=== PATIENT | female | born 1970 | race African-American/Black ===

== ENCOUNTER 2021-10-01 17:18 | Outpatient (CLI) | payer MEDICARE, SELFPAY ==
--- NOTE | ~2021-10-01 | MM_ITS ---
EXAMINATION: MM screening jeferson BI w huyen HISTORY: Screening mammogram TECHNIQUE: Craniocaudal and mediolateral oblique 3-D tomosynthesis images were obtained and synthetic 2-D images were generated. CAD analysis was submitted and interpreted. COMPARISON: 09/23/2011 BREAST PARENCHYMAL COMPOSITION: There are scattered areas of fibroglandular density. FINDINGS: There is no evidence of suspicious mass, calcification, or architectural distortion to sugg est malignancy in either breast. There has been no suspicious interval change. IMPRESSION: 1. No mammographic evidence of malignancy. 2. Recommend routine screening mammography in one year. BI-RADS Category 1: Negative Reviewed, dictated and finalized at location A. T [employer] CHIEF CLERK
== END 2021-10-01 17:19 | disposition home or self-care (01) ==
PROVIDERS: Visit Provider Obstetrics & Gynecology
DX: Z12.31 Encounter for screening mammogram for malignant neoplasm of breast (principal)
CPT/HCPCS: 77063; 77067

== ENCOUNTER 2024-08-19 17:03 | Emergency (ER) | payer MEDICARE, SELFPAY ==
--- NOTE | ~2024-08-19 | XR_ITS ---
EXAM: XR foot LT min 3V DATE: 08/19/2024 18:39 HISTORY: Left lateral foot pain . COMPARISON: None available. FINDINGS: Normal mineralization. No fracture or dislocation. No lytic or blastic lesion. Mild degene rative change at the first MTP joint. Achilles and plantar enthesopathy. No erosion or periosteal rey nge. Soft tissues within normal limits. IMPRESSION: No acute osseous finding in the left foot. Reviewed, dictated and finalized at location K. BARN LABORER
[2024-08-19 17:12] VITALS: BP 137/75; PULSE 63; RESP 16; TEMP 36.9; O2SAT 100
[2024-08-19] MEDS: KETOROLAC 30 MG/ML VIAL (*BKC) IM (18:20)
[2024-08-19] MEDS: GABAPENTIN 300 MG CAPSULE PO (18:27)
--- NOTE | 2024-08-19 18:54 | ED_ITS ---
HPI - Extremity Problem General Chief complaint: Extremity Problem,Nontraumatic Stated complaint: L leg pain Time Seen by Provider: 08/19/24 17:37 Source: patient Mode of arrival: ambulatory Limitations: no limitations History of Present Illness HPI Narrative: This is a 54-year-old female, with history of rheumatoid arthritis and neuropathy, who presents to the emergency department complaining of left foot and toe pain for the past several days. She describes the pain as burning and cold sensation rated 5/10. She states she had previously taken gabapentin for similar pain in the hands. She has no other complaints at this time. Related Data Home Medications ?Medication ?Instructions ?Recorded ?Confirmed ?Last Taken ?Type multivitamin 1 tablet PO DAILY 12/02/22 12/05/22 Unknown History thiamine HCl (vitamin B1) 50 mg 50 mg PO DAILY 12/02/22 12/05/22 Unknown History tablet Allergies Allergy/AdvReac Type Severity Reaction Status Date / Time tramadol Allergy Mild Itching Verified 12/02/22 09:05 Review of Systems Review of Systems: All systems reviewed & are unremarkable except as noted in HPI and below PMFSH Past Medical History Medical History Neuropathy Vaginal delivery x 3 Surgical History Surgical History History of throat surgery History of tubal ligation History of cholecystectomy History of repair of rotator cuff History of endometrial ablation Social History Social History Smoking status: Former smoker Tobacco type: cigarettes Second hand tobacco smoke exposure: No Smoking end date: 08/01/11 Alcohol intake: current Drinks per week: 5 Substance use: current Substance use type: marijuana Living arrangements: with family Spiritual care concerns: No Exam Narrative: GENERAL: Well-developed, well-nourished, and in no acute distress. HEAD: Normocephalic, atraumatic. EYES: PERRLA and EOMI. CHEST: Clear to auscultation. No respiratory distress. No wheezes rales or rhonchi HEART: Regular rate and rhythm. No murmur heard. Normal peripheral pulses. EXTREMITIES: DP and PT pulses of the feet intact. The skin is pink warm and dry. Pulse ox applied to each of the toes demonstrates 97-98% saturation room air. Normal range of motion. No edema. SKIN: Warm, dry, no rash. NEURO: Alert and oriented x3. No focal deficit. Moving all 4 limbs spontaneously PSYCH: Normal mood and affect. Course Course Emergency Course: 18:50 X-ray not concerning for fracture or dislocation exam not concerning for vascular insufficiency. I suspect neuropathy is the cause of the patient's pa in. Will discharge with gabapentin, topical lidocaine and recommendation for primary care follow-up. I discussed the findings and recommendations with the patient. Discussed return and emergency precautions including signs/symptoms of septic arthritis and neurovascular compromise. The patient voiced understanding and agreement with the plan. All questions answered to her satisfaction. Vital Signs Vital signs: Vital Signs Temperature 98.5 F 08/19/24 17:12 Pulse Rate 63 08/19/24 17:12 Respiratory Rate 16 08/19/24 17:12 Blood Pressure 137/75 08/19/24 17:12 Pulse Oximetry 100 08/19/24 17:12 Oxygen Delivery Room Air 08/19/24 17:12 Temperature 98.5 F 08/19/24 17:12 Pulse Rate 63 08/19/24 17:12 Respiratory Rate 16 08/19/24 17:12 Blood Pressure 137/75 08/19/24 17:12 Pulse Oximetry 100 08/19/24 17:12 Oxygen Delivery Room Air 08/19/24 17:12 MDM - Extremity (Nontraumatic) MDM Narrative Medical decision making narrative: Plan: Imaging, pain control, reassess Differential Diagnosis Differential diagnosis: Likely other (Peripheral neuropathy, fracture, other) Discharge Plan Discharge Clinical Impression: Peripheral neuropathy, Acute pain of left foot Patient Disposition: Home, Self-Care Condition: Stable Instructions: Antibiotic Form, Peripheral Neuropathy (ED) Additional Instructions: You were seen in the emergency department. An x-ray of the foot was not concerning for fracture or dislocation. Your exam is not concerning for loss of blood flow to the foot. I suspect neuropathy is the cause of your pain. I recommend gabapentin, a trial of topical capsaicin and primary care follow-up. If you develop fevers with severe foot pain and swelling, of the foot appears blue/cold, or if you have other emergent concerns for life, limb, or eyesight, r eturn to the emergency department. Patient Language: Tajik Prescriptions: New gabapentin 300 mg capsule 300 mg PO TID Qty: 90 0RF lidocaine 5 % ointment 1 applic topical BID PRN (Reason: pain) Qty: 50 0RF No Action multivitamin Tablet 1 tablet PO DAILY thiamine HCl (vitamin B1) 50 mg tablet 50 mg PO DAILY Follow-up/Referrals: PHYSICIAN,STUDENT ASSISTANT [Primary Care Provider] - 2 Weeks Time of Disposition: 18:57
[2024-08-19 19:08] VITALS: BP 124/80; PULSE 78; RESP 16; TEMP 36.6; O2SAT 100
--- OUTSIDE RECORDS SUMMARY | 2024-08-23 10:49 | XMS_ITS | Data Portability ---
[facility] Address [address] [place] [address] Care Team Providers Care Sheet Rock Nailer Name Role Phone LYNDSAY DORANTES Special Events Planner [phone] [facility] Scrub Nurse [facility] eumatologist Assessment No assessment recorded. Plan of Treatment Reminders Order Date Submit Date Provider Last Modified By Organization Details Last Modified Time Details Appointments ANY 2024 03:40P M Jesse Mead MD Not available Not available Not available Lab unlist ed lab - TSH rfx on abnorm al to free T4 2023 024 mohsen López [facility] (Lab), [address] [place], [address], 08/02/2024 13:28:51 unlist ed lab - hemogl obin A1C 2023 024 mohsen López [facility] (Lab), [address] [place], [address], 08/02/2024 13:29:12 Referral hand surgeo n referr al 2023 024 jose Le MD, [address] [facility] , [place] [address], [place], [address], 09/20/2023 12:41:38 gastro entero logist referr al 2023 024 HARTSHORNDEANDRE Carvalho MD, [address], [place], [address], 04/27/2024 10:34:44 ophtha lmolog ist referr al 2023 024 [facility], [address] [place], [address], 08/21/2024 08:34:12 Procedures None record ed. Surgeries None record ed. Imaging MAMMO, screen ing, tomosy nthesi s, bilate ral 2023 024 [facility] Scheduling, [address] [facility], [place], [address], 03/22/2024 16:19:05 Medication Orders Victoz a 3-Tan 0.6 mg/0.1 mL (18 mg/3 mL) subcut aneous pen inject or 2023 024 [facility], [address] [place] [address] [address] [facility], [place], [address], 02/15/2024 16:24:56 Victoz a 3-Tan 0.6 mg/0.1 mL (18 mg/3 mL) subcut aneous pen inject or 2023 024 [facility], [address] [place] [address] [address], [place], [address], 02/15/2024 16:24:56 Victoz a 3-Tan 0.6 mg/0.1 mL (18 mg/3 mL) subcut aneous pen inject or 2023 024 [facility], [address] [place] [address] [address], [place], [address], 02/15/2024 16:24:56 Mounja ro 2.5 mg/0.5 mL subcut aneous pen inject or 2023 024 [facility] #[id number], [address], [place], [id number], 07/11/2024 20:38:31 Mounja ro 5 mg/0.5 mL subcut aneous pen inject or 2023 024 [id number], [address], [place], [id number], 07/11/2024 20:38:25 Patient TargetsNo targets recorded. Patient Instructions Encounter Date Encounter Id Patient Instructions Last Modified By Organization Details Last Modified Time 08/12/2023 [id number] I was present an d available to see this patient in [facility] clinic. I agree with the written findings. Pat Shine MD [email or web address] Not available 08/12/2023 16:44:16 11/29/2023 [id number] agree w plan and treatment and was present Dr. Daniel banda Not available 11/29/2023 14:37:16 07/11/2024 [id number] I was present an d available in the Family Medicine clinic to discuss this patient's care during the appointment. I agree with the resident's assessment and plan as documented. 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, [place], [address], 07/11/2024 13:07:41 07/11/20 24 07/11/2024 HEMOG LOBIN A1C estimated average glucose, yamileth 123 mg/dL Not Available [facility] (Lab) [address], [place], [address], 07/11/2024 13:07:41 03/22/20 24 MAMMO , scree myke, tomos ynthe sis, bilat eral [facility] [address] [facility] [place] [address] This is a summar y report . The comple te report is availa ble in the patien t's medica l record . If you cannot access the medica l record , please contac t the alan loza for a detail ed fax or copy. Examin ation: Screen ing bilate ral mammog danielle Exam Date: 024 1:59 PM Access ion: [id number] Clinic al histor y: Routin e screen ing. Compar denise: 2021, 2011 Techni que: Digita l screen ing mammog luci of both breast s was perfor med. Breast tomosy nthesi s acquis itions were obtain ed and review ed. This study was read with the assist ance of a [employer] er-aid ed detect ion system . Tissue densit y: There are scatte red areas of fibrog landul ar densit y. Findin gs: No suspic ious masses , malign ant appear ing calcif icatio ns, skin thicke myke or other abnorm alitie s are presen t. No signif icant change from the prior exam. IMPRES CAROLYN: No suspic ious mammog raphic findin gs. Recomm endati on: 1. Routin e Screen ing, Bilate ral Assess ment: ACR BI-RAD S 1 - NEGATI VE Ordere d By: MARTA Nelson Electr onical ly Signed By: Nigel Anderson MD on 3:17 PM Interp reted By: Nigel Anderson MD, 3:15 PM [email or web address] [facility] [address] [facility], [place], [address], 04/29/2024 22:52:42 03/22/20 24 03/22/2024 MAMMO , scree myke, tomos ynthe sis, bilat eral No observ ation record ed. [email or web address] [facility] Scheduling [address] [facility], [place], [address], 05/01/2024 17:10:52 05/28/20 24 XR, chest [facility] [place] [address] [facility] [place] [address] [facility] [address] [place] [id number] TICO LOGAN S: XR CHEST PORTAB LE DATE: 2023 12:00 PM HISTOR Y: cp 54-yea r-old female . Chest pain that began late last night. Patien t report s pain radiat es from lower back to mid chest. COMPAR DENISE: Chest portab le 019. DISCUS CAROLYN: Portab le AP uprigh t view of the chest. Heart size is within normal limits . No acute pulmon dominik vascul ar conges tion. No acute pulmon dominik infilt rate, pulmon dominik consol idatio n, pleura l effusi on, or pneumo thorax . No acute skelet al abnorm ality. IMPRES CAROLYN: No acute pulmon dominik infilt rate or consol idatio n. No acute pulmon dominik vascul ar conges tion. Ordere d By: MARK WHITAKER N Electr onical ly Signed By: Romi Wiseman on 2023 12:35 PM Interp reted By: Romi Wiseman , 2023 12:33 PM [email or web address], [address], 05/29/2024 10:45:46 05/28/20 24 ECG 12-le ad [facility] [place] [address] [facility] [place] [address], [place] Test Date: 2023-08 Pat Name: LYUDMILA Degroot ment: [address] t ID: [id number] Room: EXAM01 Gender : Female Techni ban: : [birth year] Reques mike By: RAYNA ALEXANDER Order Number : [id number] Leslie john MD: Tez Ayala i Measur ements Interv als Upson Rate: 58 P: 49 OK: 151 QRS: -5 QRSD: 81 T: 29 QT: 407 QTc: 401 Interp retive Statem ents SINUS BRADYC ARDIA Compar ed to ECG 2018 11:37: 04 No signif icant change s Electr onical ly signed by Tez Ayala i at 2023 21:20: 18 [address]T [email or web address], [place], [address], 05/29/2024 10:45:46 05/28/20 24 ECG 12-le ad [facility] [place] [address] [facility] [place] [address], [place] Test Date: 2023-08 Pat Name: LYUDMILA Degroot ment: [address] ID: [id number] Room: EXAM01 Gender : Female Techni ban: : [birth year] Reques mike By: RAYNA ALEXANDER Order Number : [id number] Leslie john MD: Tez Ayala i Measur ements Interv als Upson Rate: 58 P: 49 OK: 151 QRS: -5 QRSD: 81 T: 29 QT: 407 QTc: 401 Interp retive Statem ents SINUS BRADYC ARDIA Compar ed to ECG 2018 11:37: 04 No signif icant change s Electr onical ly signed by Tez Ayala i at 2023 21:20: 18 CDT [email or web address], [place], [address], 05/29/2024 10:45:46 05/28/20 24 ECG 12-le ad [facility] [place] [address] [facility] [place] [address], [facility] [place] Test Date: 2023-08 Pat Name: LYUDMILA Degroot ment: 42 Patien t ID: [id number] Room: [facility] Gender : Female Techni ban: [id number] : [birth year] Reques mike By: RAYNA ALEXANDER Order Number : [id number] Leslie john MD: Tez Ayala i Measur ements Interv als Upson Rate: 55 P: 32 OK: 142 QRS: -15 QRSD: 83 T: 16 QT: 425 QTc: 408 Interp retive Statem ents SINUS BRADYC ARDIA Compar ed to ECG 2023 11:52: 57 No signif icant change s Electr onical ly signed by Tez Ayala i at 2023 22:04: 51 CDT [email or web address] [facility] [address] [facility], [place], [address], 05/29/2024 10:45:47 05/28/20 24 ECG 12-le ad [facility] [place] [address] [facility] [place] [address], [place] Test Date: 2023-08 Pat Name: LYUDMILA Degroot ment: Rainer Medley t ID: [id number] Room: [facility] Gender : Female Techni ban: [id number] : 1970-0 6-30 Reques mike By: RAYNA ALEXANDER Order Number : [id number] Leslie john MD: Tez Ayala i Measur ements Interv als Upson Rate: 55 P: 32 OK: 142 QRS: -15 QRSD: 83 T: 16 QT: 425 QTc: 408 Interp retive Statem ents SINUS BRADYC ARDIA Compar ed to ECG 2023 11:52: 57 No signif icant change s Electr onical ly signed by Tez Ayala i at 2023 22:04: 51 CDT [email or web address] [facility] [address] [facility], [place], [address], 05/29/2024 10:45:47 Result Notes None recorded. Problems Name Problem SNOMED Code Status Onset Date Resolution Date Notes Provider Name and Address Organization Details Recorded Time Rheumatoid arthritis 94819467 Active 2017 Not Available [facility] 3 17:58:42 Sleep apnea 95015486 Active 2017 Not Available [facility] 3 17:58:42 Obesity 516428279 Active 2017 Not Available [facility] 3 17:58:42 Degeneration of intervertebra l disc 72278408 Active 2017 Not Available [facility] 3 17:58:42 Neuropathy 205446977 Active 2017 Not Available [facility] 3 17:58:42 Hypothyroidis m 78390154 Active 2017 Not Available [facility] 3 17:58:43 Prediabetes 771862790 Active 2017 Not Available [facility] 17:58:42 Notes:Some problems listed i n Documents: #[id number], #[id number] could not be added to this patient's chart. Please review these documents and add these problems to the patient's chart manually as needed. Problem Notes None recorded. Procedures Surgical History Date Name Laterality Status Provider Name and Address Organization Details Recorded Time 07/14/20 Cryosurgery Warts/Skin Tags completed Marta Calles MD Attn: Accounting, [address] [place], [address], [facility] 07/14/2023 15:48:56 Tubal Ligation completed Erica Egan [place] [facility] 02/15/2018 10:39:23 Cholecystectomy completed Erica Egan MA [facility] 02/15/2018 10:39:35 Imaging Results Imaging Date Name Status LastModified by Organiz ation Details LastModified Time 03/22/2024 MAMMO, screening, tomosynthesis, bilateral completed [address], [address], 04/29/2024 22:52:42 03/22/2024 MAMMO, screening, tomosynthesis, bilateral completed [address] [place], [address], 05/01/2024 17:10:52 05/28/2024 XR, chest completed [address], [address], 05/29/2024 10:45:46 05/28/2024 ECG 12-lead completed [address], [address], 05/29/2024 10:45:46 05/28/2024 ECG 12-lead completed [address], [place], [address], 05/29/2024 10:45:46 05/28/2024 ECG 12-lead completed [address], [place], [address], 05/29/2024 10:45:47 05/28/2024 ECG 12-lead completed [address], [place], [address], 05/29/2024 10:45:47 Procedure Notes None recorded. Medical Equipment None Reported. Allergies Allergen ID Allergen Name Allergen Category Reaction Reaction Severity Criticality Documentation Date Start Date Code Code System Note Provider Name and Address Organization Details Recorded Time [id number] 2824e tramadol medicatio n Not available Not available Not available 05/17/20222017 30092 RxNorm Other react ions and sever ities : 'GI Upset '. Not Available Not Available Not Available Medications Name Sig Start Date Stop Date Status Note LastModified by Organization Details LastModified Time sure comfort pen needles 31gx5/16 (8mm) 31g x 8 mm misc active Not Available Not Available Not Available Prescript ion - Prior Authoriza tion Request active Nurtec Not Available Not Available Not Available metformin 500 mg tablet Take 1 tablet every day by oral route. 05/17 completed Not Available Not Available Not Available prednison e 10 mg tablet TAKE 1 TABLET BY MOUTH EVERY DAY FOR 10 DAYS THEN ONE TABLET BY MOUTH DAILY NEEDED 08/12 completed Not Available Not Available Not Available gabapenti n 600 mg tablet Take 1 tablet 3 times a day by oral route for 30 days. 08/12 completed Not Available Not Available Not Available doxycycli ne hyclate 100 mg capsule TAKE 1 CAPSULE BY MOUTH TWICE DAILY active Not Available Not Available No t Available nabumeton e 750 mg tablet 09/08 completed Not Available Not Available Not Available trazodone 50 mg tablet TAKE 1 TABLET BY MOUTH EVERY DAY DIRECTED active Not Available Not Available No t Available azithromy claude 250 mg tablet 02/15 completed Not Available Not Available Not Available tizanidin e 4 mg tablet TAKE 1 TABLET BY MOUTH EVERY 8 HOURS NEEDED FOR MUSCLE SPASMS 08/12 completed Not Available Not Available Not Available sumatript an 100 mg tablet Take 1 tablet every day by oral route as needed for 30 days. 08/12 completed Not Available Not Available Not Available hydrocodo ne 5 mg-acetam inophen 325 mg tablet 05/17 completed Not Available Not Available Not Available meloxicam 15 mg tablet Take 1 tablet every day by oral route for 30 days. 09/08 completed Not Available Not Available Not Available sumatript an 25 mg tablet 2023 active Not Available Not Available Not Avai lable methylpre dnisolone 4 mg tablet 09/08 completed Not Available Not Available Not Available topiramat e 25 mg tablet TAKE 1 TABLET BY MOUTH ONCE DAILY AT DINNER 05/17 completed Not Available Not Available Not Available phentermi ne 37.5 mg tablet TAKE 1 TABLET BY MOUTH ONCE DAILY 05/17 completed Not Available Not Available Not Available peg-elect rolyte solution 420 gram oral solution TAKE DIRECTED BY OFFICE active Not Available Not Available No t Available leflunomi de 20 mg tablet 05/17 completed Not Available Not Available Not Available meloxicam 7.5 mg tablet 08/12 completed Not Available Not Available Not Available levothyro xine 88 mcg tablet Take 1 tablet every day by oral route for 30 days. 05/17 completed Not Available Not Available Not Available methotrex ate sodium 2.5 mg tablet 05/29 completed Not Available Not Available Not Available cephalexi n 500 mg capsule 05/17 completed Not Available Not Available Not Available triamcino lone acetonide 0.1 % topical ointment APPLY THIN LAYER TOPICALL Y TO THE AFFECTED AREA TWICE DAILY FOR 7 DAYS active Not Available Not Available No t Available promethaz ine 25 mg tablet 03/02 completed Not Available Not Available Not Available ibuprofen 600 mg tablet Take 1 tablet 3 times a day by oral route as needed for 30 days. active Not Available Not Available No t Available methylpre dnisolone 4 mg tablets in a dose pack FOLLOW PACKAGE DIRECTIO NS 08/12 completed Not Available Not Available Not Available ondansetr on 4 mg disintegr ating tablet 05/17 completed Not Available Not Available Not Available fluticaso ne propionat e 50 mcg/actua tion nasal spray,katheryn pension SHAKE LIQUID AND ADMINIST ER 1 SPRAY INTO EACH NOSTRIL USE DIRECTED active Not Available Not Available No t Available naproxen 500 mg tablet 02/15 completed Not Available Not Available Not Available nabumeton e 500 mg tablet 02/15 completed Not Available Not Available Not Available amoxicill in 500 mg-potass ium clavulana te 125 mg tablet TAKE 1 TABLET BY MOUTH THREE TIMES DAILY UNTIL 24 HOURS AFTER SYMPTOMS RESOLVE active Not Available Not Available No t Available Tylenol Extra Strength 500 mg tablet Take 2 tablets every 6 hours by oral route as needed for 10 days. 2022 active Not Available Not Available Not Avai lable escitalop danielle 10 mg tablet TAKE 1 TABLET BY MOUTH EVERY DAY DIRECTED 05/17 completed Not Available Not Available Not Available topiramat e 50 mg tablet Take 1 tablet twice a day by oral route. 05/29 completed Not Available Not Available Not Available Sure Comfort Pen Needle 31 gauge x 5/16 USE DAILY TO inject victoza active Not Available Not Available No t Available diclofena c 1 % topical gel 05/17 completed Not Available Not Available Not Available Orencia 125 mg/mL subcutane ous syringe 05/17 completed Not Available Not Available Not Available Victoza 3-Tan 0.6 mg/0.1 mL (18 mg/3 mL) subcutane ous pen injector Inject 1.8 mg every day by subcutan eous route as directed for 28 days. 02/14 completed pharm called requesti ng rx. Not Available Not Available Not Available Moisture Barrier Ointment 0.44 %-20.6 % APPLY 1 GRAM TOPICALL Y TO THE AFFECTED AREA EVERY DAY FOR 10 DAYS DIRECTED 05/17 completed Not Available Not Available Not Available Nurtec ODT 75 mg disintegr ating tablet take 1 tablet every day by oral route as needed for 30 days 08/24 completed PA denied Not Available Not Available Not Available Mounjaro 5 mg/0.5 mL subcutane ous pen injector Inject 5 mg every week by subcutan eous route. 2023 active Not Available Not Available Not Avai helio Mounjaro 2.5 mg/0.5 mL subcutane ous pen injector Inject 2.5 mg every week by subcutan eous route for 28 days. 07/11 completed Not Available Not Available Not Available Vitals Date Recorded Body height Provider Name an d Address Organization Details Last Updated DateTime 08/12/2023 168.91 cm Lidia Mcdowell [facility] 08/12/2023 15:13:07 Date Recorded Body mass index (BMI) Body weight Provider Name and Address Organization Details Last Updated DateTime 08/12/2023 36.5 kg/m2 381360.1 g Lidia Mcdowell MA [facility] 15:13:16 Date Recorded Oxygen saturation Oxygen saturation in Arterial blood by Pulse oximetry Provider Name and Address Organization Details Last Updated DateTime 08/12/2023 97 % 97 % Lidia Mcdowell MA [facility] 08/12/2023 15:14:17 Date Recorded Body temperature Provider Name a nd Address Organization Details Last Updated DateTime 08/12/2023 98 [degF] Lidia Mcdowell MA [facility] 08/12/2023 15:14:19 Date Recorded Heart rate Provider Name an d Address Organization Details Last Updated DateTime 08/12/2023 61 /min Lidia Mcdowell MA [facility] 08/12/2023 15:14:55 Date Recorded Body height Provider Name an d Address Organization Details Last Updated DateTime 11/29/2023 168.91 cm Vicki Hopper MA [facility] 024 14:14:35 Date Recorded Body mass index (BMI) Body weight Provider Name and Address Organization Details Last Updated DateTime 11/29/2023 36.3 kg/m2 866281.81 g Vicki Hopper MA [facility] 11/29/2023 14:14:57 Date Recorded Body temperature Provider Name a nd Address Organization Details Last Updated DateTime 11/29/2023 97.6 [degF] Vicki Hopper [facility] 2023 14:15:08 Date Recorded Heart rate Provider Name an d Address Organization Details Last Updated DateTime 11/29/2023 82 /min [facility] 14:16:13 Date Recorded Oxygen saturation Oxygen saturation in Arterial blood by Pulse oximetry Provider Name and Address Organization Details Last Updated DateTime 11/29/2023 97 % 97 % Johncarolyn EUGENE Hopper [facility] 11/29/2023 14:17:18 Date Recorded Body height Provider Name an d Address Organization Details Last Updated DateTime 12/30/2023 168.91 cm Vicki Hopper [facility] 10:21:38 Date Recorded Body height Provider Name an d Address Organization Details Last Updated DateTime 03/02/2024 168.91 cm Lidia Mcdowell [facility] 03/02/2024 15:24:36 Date Recorded Body mass index (BMI) Body weight Provider Name and Address Organization Details Last Updated DateTime 03/02/2024 35 kg/m2 98225.77 g Lidia Mcdowell [facility] 09/2023 15:24:43 Date Recorded Body temperature Provider Name a nd Address Organization Details Last Updated DateTime 03/02/2024 97.9 [degF] Lidia Mcdowell MA [facility] 15:25:33 Date Recorded Oxygen saturation Oxygen saturation in Arterial blood by Pulse oximetry Provider Name and Address Organization Details Last Updated DateTime 03/02/2024 95 % 95 % Lidia Mcdowell MA [facility] 03/02/2024 15:25:37 Date Recorded Heart rate Provider Name an d Address Organization Details Last Updated DateTime 03/02/2024 134 /min Lidia Mcdowell [facility] 03/02/2024 15:26:05 Date Recorded Body height Provider Name an d Address Organization Details Last Updated DateTime 07/11/2024 168.91 cm Kristen Cota [facility] 10:55:20 Date Recorded Body mass index (BMI) Body weight Provider Name and Address Organization Details Last Updated DateTime 07/11/2024 34.5 kg/m2 09006.29 g Kristen Cota MA [facility] 07/11/2024 10:56:29 Date Recorded Heart rate Provider Name an d Address Organization Details Last Updated DateTime 07/11/2024 67 /min Kristen Cota MA [facility] 024 10:56:59 Date Recorded Oxygen saturation Oxygen saturation in Arterial blood by Pulse oximetry Provider Name and Address Organization Details Last Updated DateTime 07/11/2024 99 % 99 % Kristen Cota MA [facility] 07/11/2024 10:57:25 Date Recorded Body temperature Provider Name a nd Address Organization Details Last Updated DateTime 07/11/2024 98.3 [degF] Kristen oCta MA [facility] 2023 10:57:36 Date Recorded Systolic blood pressure Diastolic blood pressure Provider Name and Address Organization Details Last Updated DateTime 08/12/2023 120 mm[Hg] 82 mm[Hg] Lidia Mcdowell MA [facility] 08/12/2023 15:14:53 Date Recorded Systolic blood pressure Diastolic blood pressure Provider Name and Address Organization Details Last Updated DateTime 11/29/2023 102 mm[Hg] 72 mm[Hg] Vicki Hopper MA [facility] 11/29/2023 14:16:51 Date Recorded Systolic blood pressure Diastolic blood pressure Provider Name and Address Organization Details Last Updated DateTime 03/02/2024 110 mm[Hg] 77 mm[Hg] Lidia Mcdowell MA [facility] 03/02/2024 15:25:58 Date Recorded Systolic blood pressure Diastolic blood pressure Provider Name and Address Organization Details Last Updated DateTime 07/11/2024 114 mm[Hg] 79 mm[Hg] Kristen Cota MA [facility] 07/11/2024 10:56:42 Social History Question Answer Notes LastModified by Organizat ion Details LastModified Time Tobacco Smoking Status Former Smoker Quit years ago Kristen Cota MA null, [facility] 07/11/2024 10:55:19 What Is Your Level Of Alcohol Consumption? Occasional [email or web address] Information not available 02/15/2018 What Is Your Level Of Caffeine Consumption? Heavy [email or web address] Information not available 02/15/2018 How Much Tobacco Do You Chew? None [email or web address] Information not available 02/15/2018 What Type Of Diet Are You Following? REGULAR [email or web address] Information not available 02/15/2018 Which Illicit Or Recreational Drugs Have You Used? None [email or web address] Information not available 02/15/2018 Education 12 Information not available 02/15/2018 Hard Of Hearing Or Deaf In One Or Both Ears? No [email or web address] Information not available 02/15/2018 Legally Blind In One Or Both Eyes? No [email or web address] Information not available 02/15/2018 Live Alone Or With Others? With Others [email or web address] Information not available 02/15/2018 What Was The Date Of Your Most Recent Tobacco Screening? 07/11/2024 [email or web address] Information not available 07/11/2024 How Many Children Do You Have? 3 [email or web address] Information not available 02/15/2018 Do You Use Protection During Sex? Always [email or web address] Information not available 02/15/2018 Are You Sexually Active? Yes [email or web address] Information not available 02/15/2018 Are You Passively Exposed To Smoke? Yes [email or web address] Information not available 02/15/2018 How Much Tobacco Do You Smoke? No [email or web address] Information not available 02/15/2018 General Stress Level High [email or web address] Information not available 02/15/2018 Do You Use Any Illicit Or Recreational Drugs? No [email or web address] Information not available 05/17/2022 How Many Years Have You Smoked Tobacco? 0 [email or web address] Information not available 02/15/2018 Sex: Unknown Functional Status Question Answer Note LastModified by Organization D etails LastModified Time Are you able to care for yourself? Yes [email or web address] Information n ot available 02/15/2018 Mental Status None recorded. Family History Nothing Reported. Medical History No medical history recorded. Gynecological HistoryNo gynecological history recorded. Obstetrics History GPAL:G 4 P 4 0 1 3 Type Value Multiple Births 0 Full Term 4 Induced 0 Spontaneous 0 Premature 0 Living 3 Ectopics 1 Total 4 Immunizations Vaccine Type Date Status Note Provider Nam e and Address Organization Details Recorded Time COVID-19 vaccine, vector-nr, rS-Ad26, PF, 0.5 mL 1 completed Not Available [facility] 08/27/2023 00:52:05 Influenza, split virus, trivalent, preservative 3 completed Not Available [facility] 08/27/2023 00:52:06 COVID-19 vaccine, vector-nr, rS-Ad26, PF, 0.5 mL 1 completed Not Available [facility] 08/27/2023 00:52:06 Tdap 6 completed Not Available [facility] 08/27/2023 00:52:06 Past Encounters Encounter ID Performer Location Encounter Start Date Encounter Closed Date Diagnosis/Indication Diagnosis SNOMED-CT Code Diagnosis ICD10 Code Diagnosis Note [id number] Ishaan Oden MD [facility] ([facility]) [address] [place] [phone] 02/15/2018 10:10:09 02/16/2018 09:20:59 Obesity 087781537 E66.9 Sleep apnea 22918518 G47 .30 Rheumatoid arthritis 698 28492 M06.9 Hypothyroidism 80661990 E03.9 Degenerati on of intervertebral disc 04782048 M51.9 [id number] Ishaan Oden MD [facility] ([facility]) [address] [place] [phone] 05/29/2018 12:10:45 05/31/2018 16:16:46 Prediabetes 501322150 R73.03 Neuropathy 709909390 G62 .9 [id number] Ishaan Oden MD [facility] ([facility]) [address] [place] [phone] 09/08/2018 14:05:45 09/11/2018 11:19:50 Rheumatoid arthritis 03115789 M06.9 Type 2 selina betes mellitus 13066192 E11.9 Hypothyroidism 14620916 E03.9 Sleep apnea 33590690 G47 .30 [id number] SHAY HERNANDEZ MD [place] [address] [address] 01/14/2022 14:53:25 01/15/2022 09:13:47 Prediabetes 727772103 R73.03 Last a1c was 6.1 in 2019Not on any medication s right nownot seeing eye or foot doctor but is checking feet regularly- will need new labs to get baseline since everything was in 2019-bharti get a1c, CMP, lipid panel, and urine albumin.cr Hypothyroidism 29108667 E03.9 Last TSH with T4 waas 1.56 and 1.4 respective ly in 2019. She is having symptoms of fatigue, depression , bradycardi a so its possible it is hypothyroi d again since she is not taking any medication -will recheck tsh and t4 Depressive disorder 3548 9007 F32.A PHQ-13. She is having sx's (see HPI). No SI or HI. Return precaution s given. This could also be related to thyroid so will check that. This could also be acute stress disorder given the situation at home with her getting out of jail and being hospitaliz ed Family his tory of cancer of colon 128642290 Z80.0 Father had colon cancer at 42. She needs to be screened. 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 No ssigns of infection- will send moisturize r cream Rheumatoid arthritis 698 33066 M06.9 [id number] Kaylyn blas MD [place] [address] [address] 05/17/2022 09:57:42 05/25/2022 13:36:22 Prediabetes 544536180 R73.03 Chronic, stable. Last A1c 6.1. Requesting repeat A1c which was still 6.1 today.- Discussed lifestyle change including goal weight loss of 7% of initial body weight, moderate intensity exercise 150 minutes/we ek- Consider metformin for BMI >35, age <60 Neuropathy 577227456 G62 .9 Chronic, has had workup at [facility] but records are not available. Unclear source for neuropathy as she does not have diabetes. Unsure if she has had lab workup for neuropathy already but states she has had EMG/NCS.- Release of records for Dr. Gabmoa at [facility]- Restart gabapentin 600 mg tid- Referral to neurology for further workup per patient request Headache 24649431 R51.9 Suspect medication overuse headache due to high doses of OTC aspirin/ca ffeine (BC) medication daily. Neuro exam is normal.- Counseled to stop BC medication - Consider restarting topamax for ppx next visit if still having headaches off of OTC meds Obesity 161736982 E66.9 [id number] Pat Shine MD [place] [address] 3 [facility] [address] [place] [address] 08/06/2022 15:07:03 08/10/2022 12:30:20 Prediabetes 440200910 R73.03 A1c was 6.0 today. See plan for obesity for diet and exercise. Obesity 481716906 E66.9 - BMI over 30 - Work hard to reduce carbohydra hattie and total calories - May use free smart phone dakota 'Roam [employer] Wander' to help track calories and try to reduce by 15% every 4 weeks - Should work on reducing their total portion sizes to try to reduce the size of stomach - Should be exercising about 30 minutes every day with cardio work outs - Strive to avoid regular soda, juices, and alcohol - Aim to lose about 1 lb per week and 5 lbs per month - If the patient is working hard and not succeeding , consider using weight loss medication s Depression screening 171 107507 Z13.31 PHQ 2 negative Pain in ri ght hip joint 8773408490 00361 M25.551 OA vs labral pathology vs femoractab ular syndrome. No worrisome signs on infection. Positive VASILE and FADIR. Mild trochanter ic tenderness to palpation but does not reproduce her pain. Will send to PT and do NSAIDS with tylenol. WIll need to get hip xray and may need more advanced imaging., Migraine with aura 12805 06 G43.109 SNOOP red flags negative. Has preceding aura prior to migraine. Photophobi a, pulsatile. Doesn't take chronic NSAIDS. [facility]. Cannot take sumatripti an for risk of combinatio n with gabapentin (may incr. 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 depression , psychomoto r impairment ) [id number] [facility] [address] [address] 12/17/2022 10:16:21 12/23/2022 16:19:10 Pain of right elbow joint 3228672247 0131609 M25.521 Most likely lateral epidonliti s based on exam. Could be OA as well. Atraumatic so less likely fracture-w ill give countertra ction strap and send to OT-will get Xray to look for loose bodies or stress fracture Pain in ri ght hip joint 4580740626 33911 M25.551 OA vs labral pathology vs femoractab ular syndrome. No worrisome signs on infection. WIll send to ortho for injections vs replacemen t. Did have hip xray 10/2022 that showed degenerati ve changes in right hip [id number] DO Yandy SHELL [address] [address] 03/30/2023 09:07:52 03/31/2023 14:11:50 Exposure to radon 9257563069 3328143 Z77.123 Been exposed to cigarette smoke in household for 20+ years and she herself has smoked for 15 years. Asx. Does have weight loss. given high risk smoking exposure and radon levels >8 for a couple of years will send to radiology for LDCT Insomnia 373223725 G47.0 0 Chronic, 3 months. Think it related to mood. No caffiene intake. No new meds. No snoring or concerns of TEMI or cardiac concerns.- encouraged good sleep hygiene-wi ll trial trazadone 50mg nightly and RTC in 1 month to reeval [id number] MD Yandy SANTIAGO [address] [address] 07/14/2023 15:11:34 08/11/2023 10:28:55 Hand wart 802451956 B07.8 on middle finger. not infected. Patient elected to proceed with cryotherap y. Talkeda bout alternativ e treatments and return precaution s given Seasonal allergy 2061145 04 J30.2 Chronic controlled with flonase. needs refill [id number] MD Yanyd Sanchez 47 3 [facility] [address] [place] [address] 07/28/2023 12:01:41 07/29/2023 16:18:09 Acute dermatitis 89594348 L30.9 see callosity of hand problem Callosity on hand 719924 002 L84 R22.31 53 yof s/p cryotherap y on RUE middle finger for cutaneous growth/ nodule, presumed to be hand wart at the time of cryotherap y. Pt seems to be having some post procedure inflammati on. -unclear if lesion was truly a wart, pt has hx of hand calluses on her hands bilat and has some small hyperkerat otic calluses on her LUE hand / fingers in similar locations, pt reports these and these types of lesions were prev removed / ablated via a specialist physician she saw > 7 years ago, unclear what kortney of procedure it was-lesion s could be calluses vs rheumatoid nodules vs tophi entity vs wart vs other-toda y her post cryotherap y lesion dose not appear to be infected or involve any deep hand / finger structures -pt states lesion feels best when she keeps the skin hydrated w/ vaseline and covered w/ bandage-di scussed management options w/ pt-as lesion is showing some cutaneous inflammati on w/o signs of SSTI will try 7 day course of topical steroids-s ent triamcinol one 0.1% , advise to apply BID for no more than 7 days and not use the topical steroid on any other skin lesion w/o talking to physician first-pt has f/u w/ her pcp in aprox 12 days-provi ded ed and clinic return precaution s Seronegati ve rheumatoid arthritis 315596609 M06.00 pt carries the dx of seronegati ve rheumatoid arthritis, has seen multiple rheum providers int he past most recent rheum note in care everywhere was via Dung Estevez MD on , note mentions restart lelfunomid e, unclear if pt has started this med yet [id number] Pat Shine MD [facility] 47 3 [facility] [address] [place] [address] 08/12/2023 14:54:51 08/16/2023 12:50:58 Screening for malignant neoplasm of colon 292016279 Z12.11 Callosity on hand 322878 002 L84 Still present despite cryotherap y and topical steroids. Painful. to her. Does not appear to move with tendon ddx: tendon sheath tumor vs calluses vs rheumatoid nodules vs tophi entity vs wart vs other-prob ably would benefit from hand surgeon at this time Obesity 129733586 E66.9 - BMI over 30- Work hard to reduce carbohydra hattie and total calories- May use free smart phone dakota 'Roam & Wander' to help track calories and try to reduce by 15% every 4 weeks- Should work on reducing their total portion sizes to try to reduce the size of stomach- Should be exercising about 30 minutes every day with cardio work outs- Strive to avoid regular soda, juices, and alcohol- Aim to lose about 1 lb per week and 5 lbs per month-fail ed topiramate and phentermin e-can try victoza and RTC in 1 month [id number] Eduardo Sanchez MD [place] [address] 3 [facility] [address] [place] [address] 11/29/2023 14:05:40 11/30/2023 16:13:17 Screening for malignant neoplasm of colon 409993194 Z12.11 did not tolerate GI prep for colonoscop y however on chart review had cologuard in 2021 that was negative will need in in 1 year Obesity 891138416 E66.9 - BMI over 30- Work hard to reduce carbohydra hattie and total calories- May use free smart phone dakota 'Roam [employer] Wander' to help track calories and try to reduce by 15% every 4 weeks- Should work on reducing their total portion sizes to try to reduce the size of stomach- Should be exercising about 30 minutes every day with cardio work outs- Strive to avoid regular soda, juices, and alcohol- Aim to lose about 1 lb per week and 5 lbs per month-fail ed topiramate and phentermin e-can increase victoza and RTC in 1 month Screening for malignant neoplasm of cervix 875572359 Z12.4 January 03 with gyne Screening mammography 24 221309 Z12.31 [id number] TERELL Ramirez MD [facility] [address] [address] 12/30/2023 08:22:03 01/02/2024 15:24:27 Obesity 272129811 E66.9 - BMI over 30, down 3lbs since last visit - Work hard to reduce carbohydra hattie and total calories- May use free smart phone dakota 'Roam [employer] Wander' to help track calories and try to reduce by 15% every 4 weeks- Should work on reducing their total portion sizes to try to reduce the size of stomach- Should be exercising about 30 minutes every day with cardio work outs- Strive to avoid regular soda, juices, and alcohol- Aim to lose about 1 lb per week and 5 lbs per month-fail ed topiramate and phentermin e-can increase victoza and RTC in 1 month [id number] TERELL [facility] [address] [address] 03/02/2024 15:18:57 03/07/2024 11:21:06 Prediabetes 075226699 R73.03 - needs for pre-diabet es- previously on victoza: now on mounjaroMe dication refill Adult heal th examination 618555421 Z00.00 - mammograph y: march 08- see [facility] for pap smears- Had carlos (-) [id number] Albert Kasper MD [facility] [address] [address] 07/11/2024 10:49:02 07/19/2024 12:52:47 Loss of hair 523455342 L65.9 Recent hair loss and excessive tiredness- Pt states previously they found her Thyroid levels to be off but they normalized after a whileManag ement:- given pts hx of thyroid level derangemen t will check TSH and t4Plan:- If thyroid levels are low can consider starting pt on levothyrox ine and also sending her for thyroid scan 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 non-painfu l- pt states that has been present for 1 yr now- Pt wants to have it removed as that is coming in the way of her looks: pt states she was not born with it so she wants it to be gone.Manag ement:- referral to ophthalmol ogistPLan: - if above will not do judith procedure might have to send her to a dermatolog ist. Diabetes mellitus 396438 09 E11.9 Pt currently taking 2.5 mg once weekly mounjaro- pt has also lost weight being on mounjaroMa nagement:- increasing the dose to 5mg once weekly: D/C the 2.5 mg mounjaroPL an:- F/U in 3 months Health Concerns Section Related Observation LastModified by Organization Detai ls LastModified Time None Recorded Concern Status LastModified by Organization Details LastModified Time None Recorded Advance Directives Directive None Recorded Payers Encounter Date Sequence Insurance Name Policy Number Policy Martinez Covered Member ID Martinez Member ID Guarantor Name 08/12/2023 1 [facility] [id number] Lyudmila Jade [id number] Lyudmila Jade 11/29/2023 1 [facility] (MEDICARE REPLACEMENT/A DVANTAGE - PPO) [id number] Lyudmila Jade [id number] Lyudmila Jade 12/30/2023 1 [facility] (MEDICARE REPLACEMENT/A DVANTAGE - PPO) [id number] Lyudmila Jade [id number] Lyudmila Jade 03/02/2024 1 [facility] (MEDICARE REPLACEMENT/A DVANTAGE - PPO) [id number] Lyudmila Jade [id number] Lyudmila Jade 07/11/2024 1 [facility] (MEDICARE REPLACEMENT/A DVANTAGE - PPO) [id number] Lyudmila Jade [id number] Lyumdila Jade Notes Date Note Type Note Provider Name and Address Organization Details Recorded Time 08/12/2023 text/html ObesityReported bypatient.Context:no inhaled steroids; no oral steroids Associated Symptoms:no hypothyroidism;depres carolyn or anger symptoms;hypothyroidi sm Co-morbidities:overwe ight/obese Lifestyle changes:motivated to continue lifestyle changes; losing weight; exercising more Nutrition:eats mostly healthy diet Medication Education:understands potential side effects; understands administration; understands role of diet as primary therapyNotes:failed topiramate and phentermine due to side effects Pt 53 yof pmhx apparent seronegative rheumatoid arthritis, fibromyalgia, est w/ rheum prev/current, last rheum note from new rheum provider noted to be 05/19/2023 care everywhere, pre dm, obesity. Pt s/p cryotherapy RUE middle finger palpar aspect on 07/14/2023, pt state lesion was inflamed / irritated the days following the procedure. Still has pain around finger lesion despite steroid therapy Pt denied fevers, purulent d/c from area, spreading redness, new problems flexing/extending finger. Pt states she has been manipulating / squeezing / picking at lesion w/ her fingers Per last visit with dr ramsay: Reports prev interventions via some specialist physician > 7 years ago, pt unclear on any other specific details regarding that. Pat Shine MD Attn: Accounting,[address] [facility], [place], [address], [facility] 08/12/2023 16:44:20 11/29/2023 text/html Pt 53 yof pmhx apparent seronegative rheumatoid arthritis, fibromyalgia, est w/ rheum prev/current, last rheum note from new rheum provider noted to be 05/19/2023 care everywhere, pre dm, obesity. presents for weight follow up.-tolerating victoza well no side effects- on steroids for RA and feels like weight loss is stagnant due to steroids.-hard to exercise due to RA but trying to work on other options sees gyne in december for papunable to tolerate GI prep so didnt get colonoscopy done no N/V, abdominal pain, night sweats, fevers or chest pain Eduardo Sanchez MD Attn: Accounting,[address] [facility], [place], [address], [facility] 11/30/2023 10:51:36 12/30/2023 text/html ObesityReported bypatient.Context:no inhaled steroids; no oral steroids Associated Symptoms:no depression Co-morbidities:no new co-morbidities since last visit Lifestyle changes:few constitutional symptoms related to diagnosis; no changes in living situation; motivated to continue lifestyle changes; losing weight; exercising more Nutrition:doesn't follow any kind of diet plan;poor compliance with diet;not restricting concentrated sugars Physical Activity:reported frequency of moderate level of physical activity per week: >4 days Medication Education:understands potential side effects; understands administration; understands role of diet as primary therapy TERELL MADDOX MD Attn: Accounting,[address], [place], [address], [facility] 01/02/2024 09:55:11 03/02/2024 text/html 54 yr old female here for medication refill. Pt denies any headache, blurry vision, sob, chest pain, or abdominal pain. TERELL MADDOX MD Attn: Accounting,[address], [place], [address], [facility] 03/05/2024 12:39:36 07/11/2024 text/html Lyudmila Jade is a 54 y/o F that presents to the clinic to discuss her ortho f/u and thyroid. States she missed her ortho apt for her right hip and right knee pain 3 weeks ago. States that she has had hip pain that radiates down her leg. After missing her appointment, she has decided to f/u w/ an ortho at [facility] on 07/20/24. Reports hair loss, fatigue, and veneer drier skin than normal x2-3 months. Pt has hx of hypothyroidism. Denies any enlargement of neck or thyroid. Requesting labs to check her thyroid levels and any vitamin deficiencies. Also reports lesion above her left eyelid for the past few months. Denies any pain or drainage. Pt has cosmetic concern. Albert Kasper MD Attn: Accounting,[address], [place], [address], [facility] 07/17/2024 10:34:55 OBGyn Episode No OBEpisode recorded.
== END 2024-08-19 19:09 | disposition home or self-care (01) ==
PROVIDERS: Emergency Provider Preventive Medicine Aerospace Medicine
DX: G62.9 Polyneuropathy, unspecified (principal); M79.672 Pain in left foot; M06.9 Rheumatoid arthritis, unspecified; Z87.891 Personal history of nicotine dependence
CPT/HCPCS: 73630; 96372; 99283; A9270; J1885

== ENCOUNTER 2024-09-12 13:10 | Emergency (ER) | payer MEDICARE, SELFPAY ==
[2024-09-12 13:14] VITALS: BP 161/88; PULSE 54; RESP 20; TEMP 36.7; O2SAT 100
--- OUTSIDE RECORDS SUMMARY | 2024-09-12 13:14 | XMS_ITS ---
Author Organization [facility] Address [address] [place], [place] [address] Care Team Providers Care Scrapper Name Role Phone ISSA MONTGOMERY Unavailable [phone] Ishaan Marquez Unavailable Unavailable MARGO GUERRA Unavailable [phone] REASON FOR VISIT *MRI results Medications Medication SIG (Take, Route, Frequency, Duration) Notes Start Date End Date Status methylPREDNISolone 4 MG as directed Oral ly for 1 week 05/10/2023 05/11/2023 Active methylPREDNISolone 4 MG as directed Orally 023 Active Vital Signs Height 67.00 in 05/10/2023 Weight 232 lbs 05/10/2023 BMI 36.33 kg/m2 05/10/2023 Height-cm 170.18 cm 05/10/2023 Weight-kg 105.23 kg 05/10/2023 Encounters Encounter Location Date Provider Diagnosis [facility] [address] [facility] [address] [place], [place] [id number] 05/10/2023 MARGO GUERRA 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 The patient was instructed in its use. - Rx medrol dosepak - Instructed patient to obtain and bring with her at next appointment disc with MRI images for potential operative planning. 05/10/2023 Localized edema (ICD-10 - R60.0) 05/10/2023 Pain in left foot (ICD-10 - M79.672) 05/10/2023 Peroneal tendinitis, left leg (ICD-10 - M76.72) Peroneal Tendonitis: I discussed anti-inflammatory treatment options and various means of immobilization with the patient. I educated the patient on icing and stretching, supportive shoegear, and the use of orthotic devices and bracing. 05/10/2023 Flat foot [pes planus] (acquired), left foot (ICD-10 - M21.42) Patient educated on etiology and treatment options for flexible flat foot deformity. Educated patient on how a flexible flat foot deformity can in turn result in pathology such as hammer toe, bunions, equinus, neuromas. Recommend use of custom foot inserts to help alleviate plantar peak pressures and accomodate for digital deformity to feet. 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 The patient was instructed in its use. - Rx medrol dosepak - Instructed patient to obtain and bring with her at next appointment disc with MRI images for potential operative planning. Peroneal tendinitis, left leg Peroneal Tendonitis: I discussed anti-inflammatory treatment options and various means of immobilization with the patient. I educated the patient on icing and stretching, supportive shoegear, and the use of orthotic devices and bracing. Flat foot [pes planus] (acqu ired), left foot Patient educated on etiology and treatme nt options for flexible flat foot deformity. Educated patient on how a flexible flat foot deformity can in turn result in pathology such as hammer toe, bunions, equinus, neuromas. Recommend use of custom foot inserts to help alleviate plantar peak pressures and accomodate for digital deformity to feet. Next Appt Details Follow Up: 2 Weeks, Reason: Progress Notes * MELODIE PARKER DDOB:[birth year] (53 yo F)Acc No.[id number]:05/10/2023 Patient: MELODIE ARMENTA D Provider: Leslie GUERRA :1970 A ge:53 Y S ex:Female Date:05/10/2023 Address:[address] [place] [address] Subjective: * Chief Complaints: * 1 . *MRI results. * HPI: H PI: Follow Up Visit P john presents for follow up visit for left foot pain. She states she is here for her MRI results. , Patient states she is still having pain to left rearfoot especially when she tries to garrick the rearfoot and when she is walking barefoot. States that the pain is exacerbated when she walks without shoe gear. States the soft tissue mass to outside of left foot has stayed about the same size.. * ROS: G eneral / Constitutional: Patient denies w eakness. R espiratory: Patient denies c hronic cough, shortness of breath, sputum production. C ardiovascular: Patient denies c hest pain, history of AR, irregular heartbeat. M usculoskeletal: Patient complains of j oint pain. P eripheral Vascular: Patient denies b lanching of skin, cold extremities, decreased sensation in extremities. S kin: Patient complains of l umps. P atient complains of l umps. N eurologic: Patient complains of b urning/ tingling, numbness. ? * Medical History: * Family History: F ather: PRN - Father: . M other: PRN - Mother: . B rother: SIB - Brother: . * Social History: M igrated Social History: M igrated Social History: History of tobacco use : , Smoking Status : Former tobacco user , Alcohol intake :. * Medications: T aking methylPREDNISolone 4 MG Tablet Therapy Pack as directed Orally Objective: * Vitals: W t:232lbs, Wt-k.23 kg, Ht: 67.00 in, Ht-cm: 170.18 cm, BMI:36.33Index, Body Surface Area: 2.23. * Examination: P hysical Examination: V ascular: Dorsalis Pedis pulse noted at 1/4 right foot and 1/4 left foot and Posterior Tibial pulse noted at 1/4 right foot and 1/4 left foot, Capillary refill times noted to be less than three seconds x ten, Temperature gradient noted to be warm to cool to bilateral foot, pedal hair present to bilateral foot and no varicosities are noted Dermatologic: there are no open lesions, no signs of active clinical infection, no erythema noted, no ecchymoses, nails are at hygienic length x ten, soft tissue mass nodule is noted lateral midfoot left foot Musculoskeletal: there is no pain to palpation onto nail plate x ten, no calf pain noted bilaterally, arch height noted at 2/5 non-weight bearing bilaterally, first metatarsophalangeal joint range of motion 30 deg non-weight bearing bilaterally, pain to palpation lateral hindfoot left foot, pain with subtalar joint eversion left foot, pain with resisted dorsiflexion eversion left foot Neurology: protective sensation intact to light touch bilateral digits one through five, vibratory sensation intact to first metatarsophalangeal joint bilaterally, negative tinnel sign with percussion of dorsal medial cutaneous nerve. Assessment: * Assessment: 1. O ther specified congenital deformities of feet - Q66.89 (Primary) 2 . L ocalized edema - R60.0 3 . P ain in left foot - M79.672 4 . P eroneal tendinitis, left leg - M76.72 5 . F lat foot [pes planus] (acquired), left foot - M21.42 6 . F lat foot [pes planus] (acquired), right foot - M21.41 Plan: * Treatment: 2. P eroneal tendinitis, left leg Notes: Peroneal Tendonitis: I discussed anti-inflammatory treatment options and various means of immobilization with the patient. I educated the patient on icing and stretching, supportive shoegear, and the use of orthotic devices and bracing. 3. F lat foot [pes planus] (acquired), left foot Notes: Patient educated on etiology and treatment options for flexible flat foot deformity. Educated patient on how a flexible flat foot deformity can in turn result in pathology such as hammer toe, bunions, equinus, neuromas. Recommend use of custom foot inserts to help alleviate plantar peak pressures and accomodate for digital deformity to feet. 4. O thers Start methylPREDNISolone Tablet Therapy Pack, 4 MG, as directed, Orally, 1 week, 1 pack. * Procedure Codes: L 1902 AFO ANK GAUNTLT PREFAB W/FIT&ADJ, Modifiers: LT * Follow Up: 2 Weeks * Billing Information: * Visit Code: 70854 Office Visit, Est Pt., Level 3. * Procedure Codes: L1902 AFO ANK GAUNTLT PREFAB W/FIT&ADJ. Modifiers: LT * Sign off status: Completed true * Provider: Leslie GUERRA Date: 1 Generated for Ernestine quiñones/Franco/Delvin on: 0 09/12/2024 01:14 PM CAREER CENTER ADVISOR History and Physical Notes * HPI (History of Present Illness) Category Sub-Category Detail Notes Category Not es HPI Follow Up Visit Patient presents for follow up visit for left foot pain. She states she is here for her MRI results. , Patient states she is still having pain to left rearfoot especially when she tries to garrick the rearfoot and when she is walking barefoot. States that the pain is exacerbated when she walks without shoe gear. States the soft tissue mass to outside of left foot has stayed about the same size. Examination Category Sub-Category Detail Notes Category Not es Physical Examination Vascular: Dorsalis Pedis pulse noted at 1/4 right foot and 1/4 left foot and Posterior Tibial pulse noted at 1/4 right foot and 1/4 left foot, Capillary refill times noted to be less than three seconds x ten, Temperature gradient noted to be warm to cool to bilateral foot, pedal hair present to bilateral foot and no varicosities are noted Dermatologic: there are no open lesions, no signs of active clinical infection, no erythema noted, no ecchymoses, nails are at hygienic length x ten, soft tissue mass nodule is noted lateral midfoot left foot Musculoskeletal: there is no pain to palpation onto nail plate x ten, no calf pain noted bilaterally, arch height noted at 2/5 non-weight bearing bilaterally, first metatarsophalangeal joint range of motion 30 deg non-weight bearing bilaterally, pain to palpation lateral hindfoot left foot, pain with subtalar joint eversion left foot, pain with resisted dorsiflexion eversion left foot Neurology: protective sensation intact to light touch bilateral digits one through five, vibratory sensation intact to first metatarsophalangeal joint bilaterally, negative tinnel sign with percussion of dorsal medial cutaneous nerve
--- OUTSIDE RECORDS SUMMARY | 2024-09-12 13:15 | XMS_ITS | Clinical Summary ---
Author Organization [facility] Address [address] [facility] [place] [address] Care Team Providers Care Pillow Filler Name Role Phone Andrea Calles MD Primary Care Provider [phone] Dung Estevez MD Unavailable Source Comments [facility],non-owned Affiliates and Associated Physician Practices is amultiple site organization consisting of ambulatory clinics and hospital sitesin [place], [place], [place] and [place]. This disclosure is being madepursuant to the Care Everywhere program and may not contain all information available regarding this patient. Last updated 18.[facility] Allergies No known active allergies Medications * Be aware that medications may not be up to date on this document. Alwaysverify current medications with the patient. Medication Sig Dispensed Refills Start Date End Date Status levothyroxine (SYNTHROID) 88 MCG tablet Take 88 mcg by mouth once daily 05/23/2015 Active leflunomide (ARAVA) 10 MG tablet Take 1 tablet by mouth once daily for 30 days 30 tablet 2 02/20/2018 Active Additional Information Patient not taking.Reported on 10/28/2023 SUMAtriptan (Imitrex) 25 MG tablet Take 1 (one) tablet by mouth as directed 09/12/2022 Active escitalopram (Lexapro) 10 MG tablet 01/15/2022 Active predniSONE (Deltasone) 10 MG tablet 1 tab po q day for 10 days and then 1 tab po q day as needed 60 tablet 04/19/2023 Active Additional Information Patient not taking.Reported on 08/25/2023 tiZANidine (Zanaflex) 4 MG tablet Take 1 (one) tablet by mouth every 8 hours as needed for Muscle Spasms 40 tablet 04/19/2023 Active Additional Information Patient not taking.Reported on 08/25/2023 leflunomide (Arava) 20 MG tablet Take 1 (one) tablet by mouth once daily 90 tablet 05/19/2023 Active Additional Information Patient not taking.Reported on 10/28/2023 acetaminophen (TYLENOL) 500 MG tablet Take 2 tablets every 6 hours by oral route as needed for 10 days. 08/06/2022 Active amoxicillin-clavula lala (Augmentin) 500-125 MG tablet TAKE 1 TABLET BY MOUTH THREE TIMES DAILY UNTIL 24 HOURS AFTER SYMPTOMS RESOLVE 09/23/2023 Active doxycycline hyclate (Vibramycin) 100 MG capsule Take 1 (one) capsule by mouth 2 times daily Active fluticasone propionate (Flonase) 50 MCG/ACT nasal spray SHAKE LIQUID AND ADMINISTER 1 SPRAY INTO EACH NOSTRIL USE DIRECTED Active ibuprofen (Motrin) 600 MG tablet Take 1 tablet 3 times a day by oral route as needed for 30 days. Active Sure Comfort Pen [place] 31G X 8 MM needle USE DAILY TO inject victoza 11/16/2023 Active Victoza 18 MG/3ML pen INJECT 1.2MG under the skin EVERY DAY DIRECTED Active promethazine (Phenergan) 25 MG tablet Active traZODone (Desyrel) 50 MG tablet Take 1 (one) tablet by mouth once daily Active triamcinolone acetonide (Kenalog) 0.1 % ointment APPLY THIN LAYER TOPICALLY TO THE AFFECTED AREA TWICE DAILY FOR 7 DAYS Active Active Problems Problem Noted Date Diagnosed Date Closed fracture of left distal forearm, sequela 01/07/2022 Overview (01/07/2022): Fell 2 wks ago and suffered a closed distal Lt forearm fracture now casted at ED and awaiting ortho follow up. Removed Lt 4th finger ring (swelling/numbness). History of rheumatoid arthritis 10/08/2021 Assessment & Plan (10/08/2021 4:42 PM STATUARY PAINTER): Reports previous diagnosis of rheumatoid arthritis with ongoing complaints of bilateral hand pain and swelling and rather diffuse musculoskeletal pain and polyarthralgia despite recent transition to Cimzia now as her 3rd anti TNF treatment (she does not understand why Tayo Garcia MD had taken her off Orencia last year and started her on Cimzia since he seems to be feeling better on Orencia and prefers to receive that form of biological DMARD therapy). She last received a dose of sc Cimzia 400 mg provided at [facility] infusion unit on 09/23/2021. She has been told that she would need to hold further dosing of Cimzia and allow washout before she could proceed with a anticipated upcoming right carpal tunnel decompressive surgical procedure. I discussed with her my review of her past available chart records that other than having some prior findings of mild elevated C-reactive protein measurements which potentially could be reflective of her weight rather than a direct reflection of any active systemic inflammatory process especially with normal sedimentation rate measurements as well as negative rheumatoid factor anti CCP antibody test results that I can review in available records and otherwise unremarkable bilateral hand radiographs performed in 2018 that I cannot completely confirm her diagnosis of rheumatoid arthritis. As such I do not feel comfortable proceeding additional dosing either of Cimzia or making a transition to another rheumatoid arthritis treatment option including a re trial of Orencia until we can further confirm her diagnosis. She was somewhat unsettled to hear my opinion and wanted to know why all the other doctors had given her that diagnosis and provided her multiple other medications over the years and how she could g et the medications out of her body that previously had been provided . I told her I thought it was best at this point to try to determine the exact nature of her symptomatology and probably an MRI with contrast of her hands to evaluate for synovitis would be the best option but I would like to defer any imaging for at least 8 weeks following her last dose of Cimzia and also should avoid any MRI imaging of the right hand following any surgical procedure including a carpal tunnel decompressive procedure. She was in agreement with proceeding with an MRI of both hands and will try to get this done before her anticipated upcoming right carpal tunnel surgery. In the meanwhile I have removed Cimzia as an active treatment out of the [facility] infusion therapy plan. She will be scheduled for return appointment again in 3 months. Bilateral hand pain 10/08/2021 Carpal tunnel syndrome on right 10/08/2021 Seronegative rheumatoid arthritis 02/23/2018 Immunizations Name Administration Dates Next Due FLU VACCINE TRI IIV3 SPLIT IM (FLUVIRIN) 013 INFLUENZA VACCINE, QUADR. (F LUZONE; FLULAVAL; FLUARIX; AFLURIA QUADRIVALENT; 6MO+), 0.5 ML (IIV4) 05/30/2020 Influenza Intradermal 08/24/2016 TDAP, HISTORIC VACCINE 09/12/2015 Social History Tobacco Use Types Packs/Day Years Used Date Smoking Tobacco: Former Smokeless Tobacco: Never Tobacco Cessation:Counseling Given: Not Answered Alcohol Use Standard Drinks/Week Comments Yes 0 (1 standard drink = 0.6 oz pur e alcohol) Social occasional use PHQ-2 Answer Date Recorded Patient Health Questionnaire-2 Score 0 10/28/2023 Sex and Gender Information Value Date Recorded Sex Assigned at Not on file Gender Identity Not on file Sexual Orientation Not on file Last Filed Vital Signs Vital Sign Reading Time Taken Comments Blood Pressure 101/57 10/28/2023 3:23 PM CDT Pulse 76 10/28/2023 3:23 PM CDT Temperature 36.4 C (97.5 F) 10/28/2023 3:20 PM CDT Respiratory Rate 16 10/28/2023 3:23 PM CDT Oxygen Saturation 99% 08/25/2023 1:31 PM STATUARY PAINTER Inhaled Oxygen Concentration - - Weight 104.5 kg (230 lb 6.4 oz) 10/28/2023 3:20 PM CDT Height 170.2 cm (5' 7 ) 08/25/2023 1:31 PM STATUARY PAINTER Body Mass Index 36.09 08/25/2023 1:31 PM STATUARY PAINTER Plan of Treatment Health Maintenance Due Date Last Done Comments COLOGUARD (AGES 45-75) - COLON CA SCREENING 1971 COLON MONITORING 1971 COLONOSCOPY - COLON CA SCREENING 1971 CT COLONOGRAPHY - COLON CA SCREENING 1971 Colorectal Cancer Screening 1971 FIT - COLON CA SCREENING 1971 FLEX SIG - COLON CA SCREENING 1971 MAMMOGRAM 1971 PAP SMEAR 1971 HIV SCREENING 1986 HEPATITIS B VACCINE (1 of 3 - 19+ 3-dose series) 1990 PNEUMOCOCCAL VACCINE 50+ (1 of 1 - PCV) 2021 ZOSTER VACCINE (1 of 2) 2021 LIPID TESTING 09/23/2021 09/23/2016, 09/23/2016 COVID-19 VACCINE (3 - 2023- season) 2024 07/07/2021, 11/08/2020 INFLUENZA VACCINE (#1) 2024 0, 08/24/2016, 05/10/2013 DEPRESSION SCREENING 08/01/2024 09/19/2023, 01/08/20 22 MEDICARE AWV CALENDAR YEAR 2024 DTAP/TDAP/TD VACCINES (2 - Td or Tdap) 09/12/2025 09/12/2015 SCREENING FOR DIABETES 08/25/2026 4, 04/19/2023, 01/01/2021, Additional history exists HEPATITIS C SCREENING Completed 04/19/2023 , 01/01/2021, 02/22/2018, Additional history exists HIB VACCINE Aged Out No longer eligi ble based on patient's age to complete this topic HPV VACCINE Aged Out No longer eligi ble based on patient's age to complete this topic MENINGOCOCCAL (Group B) VACCINE Aged Out No longer eligible based on patient's age to complete this topic MENINGOCOCCAL VACCINE Aged Out No suzanne kyle eligible based on patient's age to complete this topic Procedures Procedure Name Priority Date/Time Associated Diagnosis Comments COMPREHENSIVE METABOLIC PANEL Routine 08/25/2023 2:22 PM STATUARY PAINTER Arthralgia, unspecified joint HEPATITIS SCREEN ACUTE ([facility]) Routine 04/19/2023 4:01 PM CDT Arthralgia, unspecified joint LIPID PROFILE - POINT OF CARE (AMB) [facility] Routine 09/23/2016 from Last 3 Months or Most Recently Relevant to Health Maintenance Results * (ABNORMAL) COMPREHENSIVE METABOLIC PANEL (08/25/2023 2:22 PM STATUARY PAINTER) Glucose 94 70 - 99 mg/dL [facility] ACCOUNT BILL BUN 17 6 - 24 mg/dL [facility] ACCOUNT BILL Creatinine 1.05(H) 0.57 - 1.00 mg/dL [facility] ACCOUNT BILL eGFR by CKD-EPI 64 >59 mL/min/1.7 3 [facility] ACCOUNT BILL BUN/Creatinine Ratio 16 9 - 23 [facility] ACCOUNT BILL Sodium 142 134 - 144 mmol/L [facility] ACCOUNT BILL Potassium 4.1 3.5 - 5.2 mmol/L [facility] ACCOUNT BILL Chloride 103 96 - 106 mmol/L [facility] ACCOUNT BILL CO2 25 20 - 29 mmol/L [facility] ACCOUNT BILL Calcium 9.6 8.7 - 10.2 mg/dL [facility] ACCOUNT BILL Protein Total 7.0 6.0 - 8.5 g/dL [facility] ACCOUNT BILL Albumin 4.4 3.8 - 4.9 g/dL [facility] ACCOUNT BILL Globulin Total 2.6 1.5 - 4.5 g/dL [facility] ACCOUNT BILL Albumin/Globulin Ratio 1.7 1.2 - 2.2 [facility] ACCOUNT BILL Bilirubin Total 0.2 0.0 - 1.2 mg/dL [facility] ACCOUNT BILL Alkaline Phosphatase 77 44 - 121 IU/L [facility] ACCOUNT BILL AST 12 0 - 40 IU/L [facility] ACCOUNT BILL ALT 12 0 - 32 IU/L [facility] ACCOUNT BILL Blood BLOOD SPECIMEN / Unknown 08/25/2023 2:22 PM STATUARY PAINTER 08/25/2023 Narrative Resulting Agency Comment Lab [facility] performed at: [facility] [address] [facility] [id number] Dung Estevez MD LAB - CHEMISTRY PAVEL BISWAS [facility] ACCOUNT BILL [address] [place] [address] * HEPATITIS SCREEN ACUTE ([facility]) (04/19/2023 4:01 PM CDT) Hepatitis A Virus Antibody IgM Non Reactive Non Reactive [facility] ACCOUNT BILL Hepatitis B Virus Surface Antigen Non Reactive Non Reactive [facility] ACCOUNT BILL Hepatitis B Core Virus Antibody IgM Non Reactive Non Reactive [facility] ACCOUNT BILL Hepatitis C Antibody Non Reactive Non Reactive [facility] ACCOUNT BILL Comment: Non Reactive - Antibodies to Hepatitis C virus (HCV) were no t detected, result does not exclude early acute HCV infection. Blood BLOOD SPECIMEN / Unknown 04/19/2023 4:01 PM CDT 04/19/2023 Narrative Resulting Agency Comment [facility] [address] [place] [id number] Dung Estevez MD LAB - CHEMISTRY PAVEL BISWAS [facility] ACCOUNT BILL [address] [place] [address] * LIPID PROFILE - POINT OF CARE (AMB) U (09/23/2016) Cholesterol Total 178 [facility] HDL 44 mg/dL [facility] Triglycerides 151 mg/dL [facility] LDL Calculated 104 [facility] 09/23/2016 Ishaan Leo PA-C LAB - POINT OF CARE ORDERABLES [facility] from Last 3 Months or Most Recently Relevant to Health Maintenance Care Teams Pillow Filler Relationship Specialty Start Date End Date Andrea Calles MD [address] [place] [address] PCP - General Family Medicine 04/19/23 [place] [address] [address] Rheumatology 04/19/23
--- OUTSIDE RECORDS SUMMARY | 2024-09-12 13:15 | XMS_ITS | Referral Summary ---
Author Organization [facility] Address [address] [place] [address] Care Team Providers Care Centerpuncher Name Role Phone Andrea Calles MD Primary Care Provider Allergies Active Allergy Reactions Criticality Noted Date Comments Codeine Itching,Rash,Swelling Medium 05/27/2015 No Known Allergies Other (See comments) Low 019 Reaction: Medications abatacept (ORENCIA) 125 mg/mL injectionIndicatio ns:Rheumatoid Arthritis Inject 125 mg under the skin once a week. 7 Active buPROPion XL (WELLBUTRIN XL) 300 mg 24 hr tablet Take 300 mg by mouth. 7 Active diazePAM (VALIUM) 5 mg tablet Take 5 mg by mouth every 12 hours. 5 Active ergocalciferol (VITAMIN D) 50,000 unit capsule Take 50,000 Units by mouth once a week. 7 Active fluticasone (FLONASE) 50 mcg/actuation nasal spray Administer 2 sprays into affected nostril(s). 5 Active folic acid (FOLVITE) 1 mg tablet Take 1 mg by mouth. 7 Active gabapentin (NEURONTIN) 600 mg tablet Take 600 mg by mouth. 5 Active levothyroxine (SYNTHROID, LEVOTHROID) 88 mcg tablet Take 88 mcg by mouth. 5 Active predniSONE (DELTASONE) 20 mg tablet Take 20 mg by mouth daily. 0 7 Active ergocalciferol (VITAMIN D) 50,000 unit capsule once a week 3 Active cephalexin (KEFLEX) 500 mg capsule TK ONE C PO BID FOR 7 DAYS 0 9 Active cholecalciferol (VITAMIN D-3) 50,000 unit tablet Take 1 tablet by mouth 7 Active hydroxychloroquine (PLAQUENIL) 200 mg tablet 2 times daily 4 Active leflunomide (ARAVA) 20 mg tablet 9 Active metFORMIN (GLUCOPHAGE) 500 mg tablet 5 Active ondansetron ODT (ZOFRAN-ODT) 4 mg disintegrating tablet DIS ONE T PO Q 8 H PRN 0 9 Active sulfaSALAzine EN (AZULFIDINE EN) 500 mg EC tablet Take 1 tablet po twice daily for a week then take 2 tablets po twice daily 5 Active topiramate (TOPAMAX) 50 mg tablet Take 50 mg by mouth 8 Active triamterene-hydroC HLOROthiazide (triamterene-hydro CHLOROthiazide) 37.5-25 mg per tablet/capsule daily 2 Active celecoxib (CeleBREX) 100 mg capsuleIndications :Right knee pain, unspecified chronicity,Osteoar thritis of right knee, unspecified osteoarthritis type Take 1 capsule (100 mg total) by mouth 2 (two) times a day 60 capsule 1 9 Active Active Problems Problem Noted Date Diagnosed Date Anxiety and depression 01/26/2017 Peripheral nerve disease 09/23/2016 Hypoactive thyroid 09/23/2016 Obstructive sleep apnea syndrome 09/23/2016 Rheumatoid arthritis of hand 05/27/2015 Overview (01/26/2017): Overview: Seronegative- follows with Dr. Robins. Hyperlipidemia 05/27/2015 Essential (primary) hypertension 05/27/2015 Osteoarthritis of multiple joints 05/27/2015 Closed fracture of styloid process of ulna 11/20 Immunizations Name Administration Dates Next Due Influenza, Trivalent, Split, Preservative Free, Intradermal 08/24/2016 Social History Tobacco Use Types Packs/Day Years Used Date Smoking Tobacco: Former Smokeless Tobacco: Former Alcohol Use Standard Drinks/Week Comments Yes 0 (1 standard drink = 0.6 oz pur e alcohol) Personal Safety Answer Date Recorded Getting School Help Needed Not on file 08/16 Comments Unknown Sex and Gender Information Value Date Recorded Sex Assigned at Not on file 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 Gender Identity Not on file Sexual Orientation Not on file Occupation Industry Job Start Date Job End Date disabled Not on file Not on file Not on file Last Filed Vital Signs Vital Sign Reading Time Taken Comments Blood Pressure 138/76 11/09/2018 8:52 PM CDT Pulse 76 11/09/2018 8:52 PM CDT Temperature 36.5 C (97.7 F) 11/09/2018 8:52 PM CDT Respiratory Rate - - Oxygen Saturation 100% 11/09/2018 8:52 PM CDT Inhaled Oxygen Concentration - - Weight 103.9 kg (229 lb) 11/17/2018 11:26 AM CDT Height 170.2 cm (5' 7 ) 11/17/2018 11:26 AM CDT Body Mass Index 35.87 11/17/2018 11:26 AM CDT Plan of Treatment Not on file [place] [address] MEDICARE [employer] Member Subscriber Plan / Payer (Ef fective 2017-Present) Name:Lyudmila Jade Kalia Relation to Subscriber:Self Name:Lyudmila Jade Kalia Payer ID:[id number] (NAIC) Type:UHC MEDICARE Address: [place] [phone] Care Teams Centerpuncher Relationship Specialty Start Date End Date Andrea Calles MD PCP - General Family Medicine 08/17/23
--- OUTSIDE RECORDS SUMMARY | 2024-09-12 13:15 | XMS_ITS | Encounter Summary ---
Author Organization [facility] Address [address] [place] [place] [address] Care Team Providers Care Senior Procurement Specialist Name Role Phone Andrea Calles MD Primary Care Provider [phone] Dung Estevez MD Unavailable Encounter Details Date Type Department Care Team (Late st Contact Info) Description 08/31/2023 Lab Requisition [facility] - DermPath Lab [address] [facility] [place] [id number] Suhail Beth MD [facility] DERMAT[facility] [address] [place] [phone] Neoplasm of uncertain behavior of skin Social History Tobacco Use Types Packs/Day Years Used Date Smoking Tobacco: Former Smokeless Tobacco: Never Alcohol Use Standard Drinks/Week Comments Yes 0 (1 standard drink = 0.6 oz pur e alcohol) Social occasional use PHQ-2 Answer Date Recorded PHQ2 TOTAL SCORE 0 09/23/2021 Sex and Gender Information Value Date Recorded Sex Assigned at Not on file Gender Identity Not on file Sexual Orientation Not on file documented as of this encounter Plan of Treatment Not on file documented as of this encounter Procedures Procedure Name Priority Date/Time Associated Diagnosis Comments DERMATOPATHOLOGY Routine 08/31/2023 12:0 0 AM MUSHROOM PRESS OPERATOR Neoplasm of uncertain behavior of skin documented in this encounter Results * DERMATOPATHOLOGY (08/31/2023 12:00 AM MUSHROOM PRESS OPERATOR) Case Report Dermatopathology Report Case: [id number] Authorizing Provider: Suhail Beth MD Collected: 08/31/2023 12:00 AM Ordering Location: [facility] Received: 09/02/2023 09:40 AM Pathologist: Carol Angela MD Specimen: Skin, rigth 3rd finger 4:39 PM [facility] DERMATOPATHOLOGY [facility]ORATORY Final Diagnosis Specimen A. SKIN, rigth 3rd finger: PARAKERATOSIS (L85.9) (see microscopic description and comment) 4:39 PM [facility] DERMATOPATHOLOGY [facility]OR[facility] Clinical History Wart vs Punctate Keratoderma vs. Other 4:39 PM [facility] DERMATOPATHOLOGY [facility]OR[facility] Gross Description Specimen A: Received is one formalin filled container labeled with the patient's name and designated rigth 3rd finger. The specimen consists of a shave biopsy measuring 5x5x1, 3x3x1, 2x1x1, 7x3x1, 7x4x1, 8x6x1, 9x5x1, 9x6x2 mm. Jar 0+. 4:39 PM [facility] DERMATOPATHOLOGY [facility]ORATORY Microscopic Description Specimen A. SKIN, rigth 3rd finger: The specimen consisted mostly of stratum corneum with retained nuclei. There is no cellular epidermis present for evaluation. COMMENT: This type of stratum corneum is frequently seen overlying squamous proliferations such as actinic keratoses or squamous cell carcinomas; however, a wart or clavus are other diagnostic possibilities. 4:39 PM [facility] DERMATOPATHOLOGY [facility]ORATORY Disclaimer An external and internal positive and negative controls are appropriate for the histochemical, immunohistochemical and immunofluorescence stain(s) in this case (if any), except where stated explicitly. The performance characteristics of the stain(s) cited in this report were developed and its performance characteristic determined by the Dermatopathology Laboratory at [facility], directed by Dr. Yasmin Ritchie. These tests need not be, and therefore are not, approved by the [place] Food and Drug Administration. The tests are used for clinical purposes. Billing Codes Specimen Charges Stain Charges 84138 1 4 4:39 PM MUSHROOM PRESS OPERATOR DERMATOPATHOLOGY LABORATORY Embedded Images 4 4:39 PM MUSHROOM PRESS OPERATOR DERMATOPATHOLOGY LABORATORY Pathology/Cytolog y TISSUE SPECIMEN FROM SKIN / Unknown 08/31/2023 09/02/2023 9:40 AM MUSHROOM PRESS OPERATOR Suhail Beth MD LAB - PATHOLOGY/CYTO LOGY ORDERABLES DERMATOPATHOLOGY LABORATORY [facility] - Department of Dermatology [facility] Specialized Medicine [address] [place] [address], [address] [phone] documented in this encounter Visit Diagnoses Diagnosis Neoplasm of uncertain behavior of skin documented in this encounter Care Teams Senior Procurement Specialist Relationship Specialty Start Date End Date Andrea Calles MD [address] [facility] [place] [phone] PCP - General Family Medicine 04/19/23 [place] [address] [place] [phone] Rheumatology 04/19/23 documented as of this encounter
--- OUTSIDE RECORDS SUMMARY | 2024-09-12 13:15 | XMS_ITS | Clinical Summary ---
Author Organization [facility] Address [address] [place] [address] Care Team Providers Care Sales Order Specialist Name Role Phone Jesse Mead MD Primary Care Provider [phone] Allergies Active Allergy Reactions Criticality Noted Date Comments Tramadol GI Upset 02/12/2018 Pt states tramadol messes with her mind and stomach Pt states tramadol messes with her mind and stomach Medications gabapentin 600 MG tablet Take 600 mg by mouth 3 (three) times daily. Active levothyroxine 88 MCG tablet Take 88 mcg by mouth every morning. Active abatacept 250 MG injection Inject 250 mg into the vein monthly. Active leflunomide 20 MG tablet Take 20 mg by mouth daily. 9 Active Cholecalcifero l (VITAMIN D3) 13289 units Tab Take 1 tablet by mouth once a week. On Sundays 7 Active fluticasone propionate 50 MCG/ACT nasal spray 2 sprays by Each Nostril route daily as needed for Rhinitis. 2 Active aspirin 81 MG chewable tablet Chew 162 mg by mouth daily as needed (chest pain). Active methylPREDNISo LAURA sepulveda, 4 MG tabletIndicati ons:Cubital tunnel syndrome on left Take 1 tablet (4 mg total) by mouth see administration instructions. Follow package directions 1 each 2 Active Additional Information Patient not taking.Reported on 10/04/2022 escitalopram (LEXAPRO) 10 MG tablet 2 Active MOISTURE BARRIER 0.44-20.6 % ointment APPLY 1 GRAM TOPICALLY TO THE AFFECTED AREA EVERY DAY FOR 10 DAYS DIRECTED 2 Active SUMAtriptan (IMITREX) 25 MG tablet Take 1 tablet (25 mg total) by mouth 2 (two) times daily as needed for Migraine. Max of 8 tablets (200 mg) in a 24 hour period. 20 tablet 3 Active Additional Information Patient not taking.Reported on 10/04/2022 meloxicam (MOBIC) 7.5 MG tablet Take 1 tablet (7.5 mg total) by mouth daily. 30 tablet 3 Active naproxen (NAPROSYN) 500 MG tablet Take 1 tablet (500 mg total) by mouth 2 (two) times daily with meals. 30 tablet 4 Active methocarbamol (ROBAXIN) 750 MG Tab Take 1 tablet (750 mg total) by mouth every 4 (four) hours. 30 tablet 4 Active Active Problems Problem Noted Date Diagnosed Date Morbid (severe) obesity due to excess calories ([facility]) 11/17/2022 Body mass index (BMI) 40.0-44.9, adult ([facility]) 11/17/2022 Encounters Date Type Department Care Team Description 07/11/2024 10:43 AM [facility] - 07/11/2024 11:59 PM [facility] Hospital Encounter [facility] [place] [address] Jesse Mead MD Discharge Disposition: Home or Self Care (Routine Discharge) 07/11/2024 Orders Only [facility] [place] [address] Jesse Mead MD 07/11/2024 Travel from Last 3 Months Family History Medical History Relation Comments Diabetes Daughter 1 Cancer Father bone/colon Diabetes Mother Relation Status Comments Brother 1 Brother 2 Alive Brother 3 Alive Daughter 1 Alive Daughter 2 Alive Father (Age 42) cancer Mother (Age 52) diabetes Son Alive Social History Tobacco Use Types Packs/Day Years Used Date Smoking Tobacco: Former Cigarettes 1 10 Smokeless Tobacco: Former Tobacco Cessation:Counseling Given: Not Answered Comments:social Alcohol Use Standard Drinks/Week Comments Yes 0 (1 standard drink = 0.6 oz pur e alcohol) SOCIALLY PHQ-2 Answer Date Recorded Patient Health Questionnaire-2 Score 0 10/04/2022 Comments No Sex and Gender Information Value Date Recorded Sex Assigned at Not on file Legal Sex Female 3:04 AM CDT Gender Identity Not on file Sexual Orientation Not on file Last Filed Vital Signs Vital Sign Reading Time Taken Comments Blood Pressure 122/73 05/28/2024 2:34 PM CDT Pulse 53 05/28/2024 2:34 PM CDT Temperature 36.4 C (97.5 F) 05/28/2024 11:56 AM CDT Respiratory Rate 22 05/28/2024 2:34 PM CDT Oxygen Saturation 98% 05/28/2024 2:34 PM CDT Inhaled Oxygen Concentration - - Weight 98 kg (216 lb) 05/28/2024 11:56 AM CDT Height 167.6 cm (5' 6 ) 05/28/2024 11:56 AM CDT Body Mass Index 34.86 05/28/2024 11:56 AM CDT Plan of Treatment Health Maintenance Due Date Last Done Comments Cervical Cancer Screening Pa p Smear (Age 30 to 64) Every 3 Years 1971 Colorectal Cancer Screening Colonoscopy (10 Years) 1971 Kidney Health Evaluation 1971 Lipid Panel 1971 Annual Physical 1974 Pneumococcal Vaccine: Pediatrics (0 to 5 Years) and At-Risk Patients (6 to 64 Years) (1 of 2 - PCV) 1977 Diabetes: Retinopathy Eye Exam 1989 Hepatitis C 1989 Hepatitis B Vaccines (1 of 3 - 19+ 3-dose series) 1990 Cervical Cancer Screening Pa p with HPV Testing (Age 30 to 64) Every 5 Years 2001 Cervical Cancer Screening wi th HPV 2001 Zoster Vaccines (1 of 2) 2021 COVID-19 Vaccine (3 - 2023-2 5 season) 2024 07/07/2021, 11/08/2020 Influenza Adult (#1) 2024 05/30/2020, 08/24/2016, 05/10/2013 PHQ-2 (Physician [place]) 08/01/2024 10/04/2022 Hemoglobin A1C 01/09/2025 07/11/2024, 08/31/2018 DTaP, Tdap and Td Vaccines ( 2 - Td or Tdap) 09/12/2025 09/12/2015 Mammogram Screening 03/22/2026 03/22/2024 Meningococcal B Vaccine Aged Out No l onger eligible based on patient's age to complete this topic Meningococcal Vaccine Aged Out No suzanne kyle eligible based on patient's age to complete this topic RSV Immunizations Under 20 Months Aged Out No longer eligible b ased on patient's age to complete this topic Procedures Procedure Name Priority Date/Time Associated Diagnosis Comments HEMOGLOBIN, GLYCOSYLATED Routine 07/11/2024 10:53 AM REGIONAL SALES LEADER Diabetes mellitus ([facility]) TSH W/REFLEX Routine 07/11/2024 10:53 AM REGIONAL SALES LEADER Nonscarring hair loss MG SCREENING W DUSTIN CHANEL DIGI Routine 03/22/2024 2:02 PM CDT Encounter for screening mammogram for malignant neoplasm of breast from Last 3 Months or Most Recently Relevant to Health Maintenance Results * TSH W/REFLEX (07/11/2024 10:53 AM REGIONAL SALES LEADER) TSH 0.764 0.358 - 3.74 uIU/ML 07/11/2024 12:11 PM REGIONAL SALES LEADER [facility] Comment: HIGH DOSES OF BIOTIN MAY INTERFERE WITH THIS TEST RESULT. CORRELATION TO CLINICAL HISTORY AND PRESENTATION RECOMMENDED. FREE T4 NOT INDICATED 07/11/2024 10:5 3 AM REGIONAL SALES LEADER us Jesse Mead MD LABORATORY Final Result [facility] [address] [place] [address], [place] [phone] * (ABNORMAL) HEMOGLOBIN, GLYCOSYLATED (07/11/2024 10:53 AM REGIONAL SALES LEADER) HGB A1C 5.9(H) <5.7 % 07/11/2024 12:07 PM REGIONAL SALES LEADER [facility] Comment: ADA GUIDELINES 2010 5.7 TO 6.4% INCREASED RISK OF DIABETES > OR = 6.5% CONSISTENT WITH DIABETES ESTIMATED AVG GLUCOSE 123 mg/dL 07/11/2024 12:07 PM REGIONAL SALES LEADER [facility] 07/11/2024 10:5 3 AM REGIONAL SALES LEADER Jesse Mead MD LABORATORY Final Result [facility] [address] [place] [address], [place] [phone] * MG SCREENING W DUSTIN CHANEL DIGI (03/22/2024 2:02 PM CDT) Anatomical Region Laterality Modality Breast Bilateral Mammography 03/22/2024 3:15 PM CDT Impressions 03/22/2024 3:17 PM CDT IMPRESSION: No suspicious mammographic findings. Recommendation: 1. Routine Screening, Bilateral Assessment: ACR BI-RADS 1 - NEGATIVE Ordered By: MARTA OLIVA Interpreted By: Nigel Anderson MD, 03/22/2024 3:15 PM Narrative 03/22/2024 3:17 PM CDT Examination: Screening bilateral mammogram Exam Date: 03/22/2024 1:59 PM Clinical history: Routine screening. Comparison: 10/01/2021, 09/23/2011 Technique: Digital screening mammography of both breasts was performed. Breast tomosynthesis acquisitions were obtained and reviewed. This study was read with the assistance of a computer-aided detection system. Tissue density: There are scattered areas of fibroglandular density. Findings: No suspicious masses, malignant appearing calcifications, skin thickening or other abnormalities are present. No significant change from the prior exam. us Marta Oliva MD MAMMO Final Result from Last 3 Months or Most Recently Relevant to Health Maintenance Insurance [facility] Member Subscriber Plan / Payer (Ef fective 2017-Present) Name:Lyudmila Jade Relation to Subscriber:Self Name:Lyudmila Jade Payer ID:[id number] (NAIC) Type:Not on file Address: [place] [phone] MED REPLACE [facility] MED COMPLETE Member Subscriber Plan / Payer (Ef fective 2017-Present) Name:Lyudmila Jade Relation to Subscriber:Self Name:Lyudmila Jade Payer ID:[id number] (NAIC) Type:Indemnity Address: [place] [phone] MED REPLACE [facility] MED COMPLETE Member Subscriber Plan / Payer (Ef fective 2017-Present) Name:Lyudmila Jade Relation to Subscriber:Self Name:Lyudmila Jade Payer ID:[id number] (NAIC) Type:Indemnity Address: [address] [place] [phone] Advance Directives Documents on File Type Date Recorded 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 FOR HB BILLS FOR ALYSSA FOR [employer] Care Teams Sales Order Specialist Relationship Specialty Start Date End Date Jesse Mead MD [address] [phone] PCP - General FAMILY PRACTICE 07/11/24
--- OUTSIDE RECORDS SUMMARY | 2024-09-12 13:15 | XMS_ITS | Patient Health Record ---
Author Organization [facility] Address [address] [place], [place] [id number] Care Team Providers Care Gymnastics Coach Or Instructor Name Role Phone ISSA MONTGOMERY Unavailable [phone] Ishaan Marquez Unavailable Unavailable Reason For Referral No Information Medications Medication SIG (Take, Route, Fr equency, Duration) Notes Start Date End Date Status methylPREDNISolone 4 MG as directed Orally 023 Active Plan Of Treatment No Information Insurance Providers Payer Name Payer Address Payer Phone Subscriber Number Group Number Insured Name Patient Relationship to Insured Coverage Start Date Coverage End Date AARP MedicareCom plete ([facility]) [address] [place], [place] [phone] [id number] MELODIE PARKER Self - patient is the insured
--- OUTSIDE RECORDS SUMMARY | 2024-09-12 13:15 | XMS_ITS | Clinical Summary ---
Author Organization [employer] [facility] [facility] Address [address] [place] [address] Care Team Providers Care Machined Parts Quality Inspector Name Role Phone Unavailable Primary Care Provider Unavailabl e Allergies Active Allergy Reactions Criticality Noted Date Comments Codeine Rash,Itching,Swelling Medium 05/27/2015 Patient states no reaction Tramadol Other (See Comments) 02/12/2018 Pt states tramadol messes with her mind and stomach Pt states tramadol messes with her mind and stomach Medications ibuprofen (MOTRIN) 600 mg tablet 600 mg. Active abatacept (ORENCIA) 250 mg Recon Soln Inject 250 mg by intravenous injection. Active acetaminophen (TYLENOL) 500 mg tablet Take 2 tablets every 6 hours by oral route as needed for 10 days. 3 Active amoxicillin-cla vulanate (AUGMENTIN) 500-125 mg tablet TAKE 1 TABLET BY MOUTH THREE TIMES DAILY UNTIL 24 HOURS AFTER SYMPTOMS RESOLVE 4 Active gabapentin (NEURONTIN) 600 mg tablet Take 600 mg by mouth. Active leflunomide (ARAVA) 20 mg Tablet Take 20 mg by mouth daily. 3 Active levothyroxine 88 mcg tablet Take 88 mcg by mouth. Active liraglutide (Victoza 2-Tan) 0.6 mg/0.1 mL (18 mg/3 mL) INJECT 1.2MG under the skin EVERY DAY DIRECTED Active methocarbamoL (ROBAXIN) 750 mg tablet Take 750 mg by mouth every 4 hours. 4 Active naproxen (NAPROSYN) 500 mg tablet Take 500 mg by mouth 2 times daily. 4 Active predniSONE (DELTASONE) 10 mg tablet 1 tab po q day for 10 days and then 1 tab po q day as needed 3 Active Active Problems No known active problems Encounters Date Type Department Care Team Description 08/23/2024 External Device Data ST[facility] ABSTRACTION Provider, Abstract 08/22/2024 External Device Data [facility] ABSTRACTION Provider, Abstract 08/21/2024 External Device Data [facility] ABSTRACTION Provider, Abstract 08/14/2024 External Device Data [facility] ABSTRACTION Provider, Abstract 08/07/2024 External Device Data [facility] ABSTRACTION Provider, Abstract 07/24/2024 External Device Data [facility] ABSTRACTION Provider, Abstract 07/20/2024 9:56 AM CORPORATE GIVING MANAGER - 07/20/2024 11:59 PM CORPORATE GIVING MANAGER Hospital Encounter [facility] [id number] [place] [phone] Lb Woo MD Discharge Disposition: Home or Self Care 07/20/2024 9:55 AM CORPORATE GIVING MANAGER - 07/20/2024 11:59 PM CORPORATE GIVING MANAGER Hospital Encounter [facility] [address] [place] [phone] Lb Woo MD Discharge Disposition: Home or Self Care 07/20/2024 9:30 AM CORPORATE GIVING MANAGER Office Visit [facility] - [address] [place] [address] Lb Woo MD Chronic pain of right knee (Primary Dx); Right hip pain from Last 3 Months Family History Medical History Relation Name Comments Diabetes Neg Hx Social History Tobacco Use Types Packs/Day Years Used Date Smoking Tobacco: Former Cigarettes Passive Smoke Exposure: Never Smokeless Tobacco: Never Tobacco Cessation:Counseling Given: No Alcohol Use Standard Drinks/Week Comments Not Currently 0 (1 standard drink = 0.6 oz pur e alcohol) Comments Unknown Sex and Gender Information Value Date Recorded Sex Assigned at Not on file Legal Sex Female 11:20 PM CDT Gender Identity Not on file Sexual Orientation Not on file Last Filed Vital Signs Vital Sign Reading Time Taken Comments Blood Pressure - - Pulse - - Temperature - - Respiratory Rate - - Oxygen Saturation - - Inhaled Oxygen Concentration - - Weight 98.4 kg (217 lb) 07/20/2024 9:50 AM CORPORATE GIVING MANAGER Height 167.6 cm (5' 6 ) 07/20/2024 9:50 AM CORPORATE GIVING MANAGER Body Mass Index 35.02 07/20/2024 9:50 AM CORPORATE GIVING MANAGER Plan of Treatment Health Maintenance Due Date Last Done Comments Pre-Diabetes and Diabetes Screening 1970 HEPATITIS B VACCINES (1 of 3 - 19+ 3-dose series) 1990 CERVICAL CANCER SCREENING 2001 COLORECTAL SCREENING 01/29/2016 Colorectal Cancer Screening 01/29/2016 FIT-DNA Q 3 years 01/29/2016 FIT/FOBT Q 1 year 01/29/2016 Flex Sig/CT Colonography Q 5 years 01/29/2016 ZOSTER VACCINE (1 of 2) 2021 INFLUENZA VACCINE (#1) 2024 0, 08/24/2016, 05/10/2013 COVID-19 Vaccine ( season) 04/01/202401/2021, 11/08/2020 [place] Prev entative Visit/Annual Wellness Visit 08/01/2024 BREAST CANCER SCREENING 03/22/2025 03/22/2024 DTAP/TDAP/TD VACCINES (2 - T d or Tdap) 09/12/2025 09/12/2015 Procedures Procedure Name Priority Date/Time Associated Diagnosis Comments XR HIP 2 OR 3 VIEWS RT Routine 07/20/2024 10:15 AM CORPORATE GIVING MANAGER Right hip pain XR KNEE 4+ VW RIGHT Routine 07/20/2024 1 0:15 AM CORPORATE GIVING MANAGER Chronic pain of right knee from Last 3 Months Results * XR HIP 2 OR 3 VIEWS RT (07/20/2024 10:15 AM CORPORATE GIVING MANAGER) Anatomical Region Laterality Modality Lower Extremity Right Computed Radiogr aphy 07/20/2024 10:1 5 AM CORPORATE GIVING MANAGER Impressions 07/20/2024 12:01 PM CORPORATE GIVING MANAGER IMPRESSION: 1. No acute fracture or dislocation identified. DICTATION LOCATION: Location [address] [place] [address] Narrative 07/20/2024 12:01 PM CORPORATE GIVING MANAGER EXAMINATION: XR HIP 2 OR 3 VIEWS RT DATE: 07/20/2024 10:15 AM HISTORY: See Diagnosis; Right hip pain COMPARISON: No prior study is available for comparison at the time of this dictation. FINDINGS: There is no evidence of acute fracture or dislocation. The hip joint space is preserved. Procedure Note Mayra Haynes MD - 07/20/2024 EXAMINATION: XR HIP 2 OR 3 VIEWS RT DATE: 07/20/2024 10:15 AM HISTORY: See Diagnosis; Right hip pain COMPARISON: No prior study is available for comparison at the time of this dictation. FINDINGS: There is no evidence of acute fracture or dislocation. The hip joint space is preserved. IMPRESSION: 1. No acute fracture or dislocation identified. DICTATION LOCATION: [address] [place] Lb Woo MD DIAGNOSTIC IMAGING ORDERABLES Final Result * XR KNEE 4+ VW RIGHT (07/20/2024 10:15 AM CORPORATE GIVING MANAGER) Anatomical Region Laterality Modality Lower Extremity Computed Radiogr aphy 07/20/2024 10:1 5 AM CORPORATE GIVING MANAGER Impressions 07/20/2024 11:54 AM CORPORATE GIVING MANAGER IMPRESSION: 1. Osteoarthritis. 2. Mild varus deformity of the knee. DICTATION LOCATION: [address] Narrative 07/20/2024 11:54 AM CORPORATE GIVING MANAGER RIGHT KNEE DATE: 07/20/2024 10:15 AM HISTORY: See Diagnosis Chronic pain of right knee; Chronic pain of right knee COMPARISON: No prior studies are available for comparison. TECHNIQUE: AP standing, lateral standing, sunrise, PA standing. FINDINGS: There is medial joint space narrowing and a mild varus deformity of the knee. Patellofemoral joint narrowing is present. No fracture or joint effusion is identified. INCIDENTAL FINDINGS: None. Procedure Note Neo Montero MD - 07/20/2024 RIGHT KNEE DATE: 07/20/2024 10:15 AM HISTORY: See Diagnosis Chronic pain of right knee; Chronic pain of right knee COMPARISON: No prior studies are available for comparison. TECHNIQUE: AP standing, lateral standing, sunrise, PA standing. FINDINGS: There is medial joint space narrowing and a mild varus deformity of the knee. Patellofemoral joint narrowing is present. No fracture or joint effusion is identified. INCIDENTAL FINDINGS: None. IMPRESSION: 1. Osteoarthritis. 2. Mild varus deformity of the knee. DICTATION LOCATION: [address] [place] Lb Woo MD DIAGNOSTIC IMAGING ORDERABLES Final Result from Last 3 Months Insurance
--- OUTSIDE RECORDS SUMMARY | 2024-09-12 13:15 | XMS_ITS | Encounter Summary ---
Author Organization [facility] Address [facility] [place] [address] Care Team Providers Care Assessment Analyst Name Role Phone Veena Gonzalez MD Primary Care Provider Unavailable Ishaan Marquez MD Primary Care Provider [phone] None, Provider Primary Care Provider UnavailVianey Santamaria MD Primary Care Provider [phone] Andrea Calles MD Primary Care Provider [phone] Jesse Mead MD Primary Care Provider [phone] Encounter Details Date Type Department Care Team (Latest Contact Info) Description 06/06/2018 Abstract [facility] Veena Gonzalez MD Social History Tobacco Use Types Packs/Day Years Used Date Smoking Tobacco: Every Day Cigarettes 1 10 Smokeless Tobacco: Never Comments:QUIT 3 MONTHS AGO Alcohol Use Standard Drinks/Week Comments Yes 0 (1 standard drink = 0.6 oz pur e alcohol) SOCIALLY Comments No Sex and Gender Information Value Date Recorded Sex Assigned at Not on file Legal Sex Female 3:04 AM CDT Gender Identity Not on file Sexual Orientation Not on file documented as of this encounter Plan of Treatment Not on file documented as of this encounter Visit Diagnoses Not on filedocumented in this encounter Care Teams Assessment Analyst Relationship Specialty Start Date End Date Veena Gonzalez MD PCP - General FAMILY PRACTICE 10/30/18 Ishaan Marquez MD [address] [address] PCP - General FAMILY PRACTICE 03/30/19 09/19/20 None, MD Urmila PCP - General 09/20/20 11/12/20 Vianey Shukla MD [address] [address] PCP - General INTERNAL MEDICINE 11/13/20 11/18/22 Andrea Calles MD [address] [address] PCP - General FAMILY PRACTICE 11/19/22 07/10/24 Jesse Mead MD [address] [address] PCP - General FAMILY PRACTICE 07/11/24 documented as of this encounter
--- OUTSIDE RECORDS SUMMARY | 2024-09-12 13:15 | XMS_ITS ---
Author Organization [facility] Address [address] [facility] [address] [place], [place] [id number] Care Team Providers Care Sample Color Maker Name Role Phone ISSA MONTGOMERY Unavailable [phone] Ishaan Marquez Unavailable Unavailable MARGO GUERRA Unavailable [phone] REASON FOR VISIT *Trilok follow-up Medications Medication SIG (Take, Route, Fr equency, Duration) Notes Start Date End Date Status methylPREDNISolone 4 MG as directed Orally 023 Active Encounters Encounter Location Date Provider Diagnosis [facility] [address] [facility] [address] [place], [place] [id number] 05/24/2023 MARGO GUERRA Plan Of Treatment No Information Progress Notes * MELODIE PARKER DDOB:[birth year] (54 yo F)Acc No.[id number]:05/24/2023 Patient: MELODIE ARMENTA Provider: Leslie GUERRA :1970 A ge:53 Y S ex:Female Date:05/24/2023 Address:[address] [place] [address] Subjective: * Chief Complaints: * 1 . *Trilok follow-up. * Medical History: * Medications: T aking methylPREDNISolone 4 MG Tablet Therapy Pack as directed Orally Objective: * Vitals: Assessment: Plan: * Treatment: * Billing Information: * Visit Code: * Procedure Codes: * Electronic signature of LESLEY GUERRA DPM on 09/12/2024 at 01:15 PM FORK REPAIRER Sign off status: Pending * Provider: Leslie GUERRA Date: 1 Generated for Ernestine quiñones/Franco/Delvin on: 0 09/12/2024 01:15 PM FORK REPAIRER
--- OUTSIDE RECORDS SUMMARY | 2024-09-12 13:15 | XMS_ITS | Referral Summary ---
Author Organization [facility] Address [address] [facility] [place] [address] Care Team Providers Care Retort Cooler Name Role Phone Andrea Calles MD Primary Care Provider [phone] Dung Estevez MD Unavailable Source Comments [facility],non-owned Affiliates and Associated Physician Practices is amultiple site organization consisting of ambulatory clinics and hospital sitesin [place], [place]. This disclosure is being madepursuant to the Care Everywhere program and may not contain all information available regarding this patient. Last updated 18.[facility] Allergies No known active allergies Medications * [...] for 30 days. Active Sure Comfort Pen [place] 31G X 8 MM needle USE DAILY [...] 10/08/2021 Assessment & Plan (10/08/2021 4:42 PM THIRD LOADER): Reports previous diagnosis of rheumatoid arthritis with [...] of sc Cimzia 400 mg provided at [facility] infusion unit on 09/23/2021. She has been [...] as an active treatment out of the [facility] infusion therapy plan. She will be scheduled [...] CDT Oxygen Saturation 99% 08/25/2023 1:31 PM THIRD LOADER Inhaled Oxygen Concentration - - Weight 104.5 kg (230 lb 6.4 oz) 10/28/2023 3:20 PM CDT Height 170.2 cm (5' 7 ) 08/25/2023 1:31 PM THIRD LOADER Body Mass Index 36.09 08/25/2023 1:31 PM THIRD LOADER Plan of Treatment Not on file Procedures Procedure Name Priority Date/Time Associated Diagnosis Comments COMPREHENSIVE METABOLIC PANEL Routine 08/25/2023 2:22 PM THIRD LOADER Arthralgia, unspecified joint HEPATITIS SCREEN ACUTE ([facility]) Routine 04/19/2023 4:01 PM CDT Arthralgia, unspecified joint LIPID PROFILE - POINT OF CARE (AMB) [facility] Routine 09/23/2016 from Last 3 Months or Most Recently Relevant to Health Maintenance Results * (ABNORMAL) COMPREHENSIVE METABOLIC PANEL (08/25/2023 2:22 PM THIRD LOADER) Pathologist [facility] Glucose 94 70 - 99 mg/dL [facility] [...] BLOOD SPECIMEN / Unknown 08/25/2023 2:22 PM THIRD LOADER 08/25/2023 Narrative Resulting Agency Comment Lab Testing performed at: [facility] [address] [facility] [id number] Dung Estevez MD LAB - CHEMISTRY PAVEL BISWAS [facility] ACCOUNT BILL [address] [place] [address] * HEPATITIS SCREEN ACUTE ([facility]) (04/19/2023 4:01 [...] Resulting Agency Comment Lab Testing performed at: [facility] [id number] [place] [address] Dr Saul DISLA [id number] Dung Estevez MD LAB - CHEMISTRY PAVEL BISWAS [facility] ACCOUNT BILL [address] [place] [address] * LIPID PROFILE - POINT OF CARE (AMB) [facility] (09/23/2016) Cholesterol Total 178 [facility] HDL 44 mg/dL [facility] Triglycerides 151 mg/dL [facility] LDL Calculated 104 [facility] 09/23/2016 Ishaan Leo PA-C LAB - POINT OF CARE ORDERABLES [facility] from Last 3 Months or Most Recently Relevant to Health Maintenance Care Teams Retort Cooler Relationship Specialty Start Date End Date Andrea Calles MD [address] [place] [id number] PCP - General Family Medicine 04/19/23 [place] [address] [address] Rheumatology 04/19/23
--- OUTSIDE RECORDS SUMMARY | 2024-09-12 13:15 | XMS_ITS | Data Portability ---
[facility] [address] [place] [address] Care Team Providers Care Music Writer Name Role Phone LYNDSAY DORANTES Poly Area Supervisor [phone] [facility] Shrimp Packer [facility]INTERNAL MEDICINE eumatologist Assessment No assessment recorded. Plan of Treatment Reminders Order Date Submit Date Provider Last Modified By Organization Details Last Modified Time Details Appointments ANY 2024 03:40P M Jesse Mead MD Not available Not available Not available Lab unlist ed lab - TSH rfx on abnorm al to free T4 2023 024 [facility] [address] [place], [address], 08/02/2024 13:28:51 unlist ed lab - hemogl obin A1C 2023 024 [facility] [address] [place], [address], 08/02/2024 13:29:12 Referral hand surgeo n referr al 2023 024 jose Le MD, [address] [facility] , [place] [address], [place], [address], 09/20/2023 12:41:38 gastro entero logist referr al 2023 024 CUMBERLANDDEANDRE Carvalho MD, [address], [place], [address], 04/27/2024 10:34:44 ophtha lmolog ist referr al 2023 024 [facility], [address] [place], [address], 08/21/2024 08:34:12 Procedures None record ed. Surgeries None record ed. Imaging MAMMO, screen ing, tomosy nthesi s, bilate ral 2023 024 [facility] Scheduling, [address] [facility], [place], [place], [address], 03/22/2024 16:19:05 Medication Orders Victoz a 3-Tan 0.6 mg/0.1 mL (18 mg/3 mL) subcut aneous pen inject or 2023 024 [facility], [address] [place] [address] [address] [facility], [place], [address], 02/15/2024 16:24:56 Victoz a 3-Tan 0.6 mg/0.1 mL (18 mg/3 mL) subcut aneous pen inject or 2023 024 [facility], [address] [place] [address] [address], [place], [address], 02/15/2024 16:24:56 Victoz a 3-Tan 0.6 mg/0.1 mL (18 mg/3 mL) subcut aneous pen inject or 2023 024 [facility], [address] [place] [address] [address], [place], [address], 02/15/2024 16:24:56 Mounja ro 2.5 mg/0.5 mL subcut aneous pen inject or 2023 024 [facility] #[id number], [address] [place], [place], [id number], 07/11/2024 20:38:31 Mounja ro 5 mg/0.5 mL subcut aneous pen inject or 2023 024 [id number], [address], [place], [id number], 07/11/2024 20:38:25 Patient TargetsNo targets recorded. Patient Instructions Encounter Date Encounter Id Patient Instructions Last Modified By Organization Details Last Modified Time 08/12/2023 [id number] I was present an d available to see this patient in [facility] clinic. I agree with the written findings. Pat Shine MD [email or web address] Not available 08/12/2023 16:44:16 11/29/2023 [id number] agree w plan and treatment and was present Dr. Daniel banda Not available 11/29/2023 14:37:16 07/11/2024 [id number] I was present an d available in the Family Medicine clinic to discuss this patient's care during the appointment. I agree with the resident's assessment and plan as documented. 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 Referring Physician: Jesse Mead Glove Cleaner, Encounter Date: 07/11/2024 Results Created Date Observation Date Name Description Value Unit Range Abnormal Flag Note LastModifiedBy Organization Detail LastModifiedTime 07/11/20 24 07/11/2024 HEMOG LOBIN A1C hemoglobin A1C 5.9 % <5.7 high ADA GUIDE LINES 2010 5.7 TO 6.4% INCRE ASED RISK OF DIABE HATTIE > OR = 6.5% CONSI STENT WITH DIABE HATTIE Not Available [facility] (Lab) [address] [facility], [place], [address], 07/11/2024 13:07:41 07/11/20 24 07/11/2024 HEMOG LOBIN A1C estimated average glucose, warner 123 mg/dL Not Available [facility] (Lab) [address] [facility], [place], [address], 07/11/2024 13:07:41 07/11/20 24 07/11/2024 TSH ULTRA SEN RFLX TSH ultrasen rflx 0.764 uIU/m L 0.358- 3.74 HIGH DOSES OF BIOTI N MAY INTER FERE WITH THIS TEST RESUL T. CORRE LATIO N TO CLINI WARNER HISTO RY AND PRESE NTATI ON RECOM MECCA D. FREE T4 NOT INDIC ATED Not Available [facility] (Lab) [address] [facility], [place], [address], 07/11/2024 13:11:17 03/22/20 24 MAMMO , scree myke, tomos ynthe sis, bilat eral [facility] [place] [address] This is a summar y report . The comple te report is availa ble in the patien t's medica l record . If you cannot access the medica l record , please contac t the alan loza for a detail ed fax or copy. Examin ation: Screen ing bilate ral mammog danielle Exam Date: 024 1:59 PM Access ion: [id number] Clinic al histor y: Routin e screen ing. Compar denise: 2021, 2011 Techni que: Digita l screen ing mammog luci of both breast s was perfor med. Breast tomosy nthesi s acquis itions were obtain ed and review ed. This study was read with the assist ance of a [employer] er-aid ed detect ion system . Tissue [...] - NEGATI VE Ordere d By: MARTA DYKES T Electr onical ly Signed By: Nigel Anderson MD on 3:17 PM Interp reted By: Nigel Anderson MD, 3:15 PM [email or web address] [facility] [address] [facility], [place], [place], [address], 04/29/2024 22:52:42 03/22/20 24 03/22/2024 MAMMO , scree myke, tomos ynthe sis, bilat eral No observ ation record ed. [email or web address] [facility] Scheduling [address] [facility], [place], [place], [address], 05/01/2024 17:10:52 05/28/20 24 XR, chest [facility] [place] [address] [facility] [place] [address] [facility] [address] [address] TICO LOGAN S: XR CHEST PORTAB LE [...] ar conges tion. Ordere d By: MARK Bello Electr onical ly Signed By: Romi Wiseman on 2023 12:35 PM Interp reted By: Romi Wiseman , 2023 12:[email or web address] [place] [address], [address], 05/29/2024 10:45:46 05/28/20 24 ECG 12-le ad [facility] [place], [place] [address] [place] [address]`[address] [place] [address] [place], [place] Test Date: 2023-08 Pat Name: LYUDMILA Degroot ment: Rainer Medley t ID: [id number] Room: [facility] Gender : Female Techni ban: : [id number] Reques mike By: RAYNA ALEXANDER Order Number : [id number] Leslie john MD: Tez Ayala i Measur ements Interv als Marshall Rate: 58 P: 49 ME: 151 QRS: -5 QRSD: 81 T: 29 QT: 407 QTc: 401 Interp retive Statem ents SINUS BRADYC ARDIA Compar ed to ECG 2018 11:37: 04 No signif icant change s Electr onical ly signed by Tez Ayala i at 2023 21:20: [address], [place], [address], 05/29/2024 10:45:46 05/28/20 24 ECG 12-le ad [facility] [address] [facility] [place] [address] [place] [address] Test Date: 2023-08 Pat Name: LYUDMILA Santos Depart ment: 41 Patien t ID: [id number] Room: EXAM01 Gender : Female Techni ban: : 01-28 Reques mike By: RAYNA ALEXANDER Order Number : [id number] Leslie john MD: Tez Ayala i Measur ements Interv als Marshall Rate: 58 P: 49 ME: 151 QRS: -5 QRSD: 81 T: 29 QT: 407 QTc: 401 Interp retive Statem ents SINUS BRADYC ARDIA Compar ed to ECG 2018 11:37: 04 No signif icant change s Electr onical ly signed by Tez Ayala i at 2023 21:20: 18 CDT [email or web address], [place], [address], 05/29/2024 10:45:46 05/28/20 24 ECG 12-le ad [facility] [place] [address] [facility] [place] [address] [place] [address] y [facility] Test Date: 2023-08 Pat Name: LYUDMILA BARNES Danielle Depart ment: 41 Patien t ID: [id number] Room: EXAM01 Gender : Female Techni ban: [id number] : 01-28 Reques mike By: RAYNA ALEXANDER Order Number : [id number] Leslie john MD: Tez Ayala i Measur ements Interv als Marshall Rate: 55 P: 32 ME: 142 QRS: -15 QRSD: 83 T: 16 QT: 425 QTc: 408 Interp retive Statem ents SINUS BRADYC ARDIA Compar ed to ECG 2023 11:52: 57 No signif icant change s Electr onical ly signed by Tez Ayala i at 2023 22:04: 51 CDT [email or web address] [facility] [address] [facility], [place], [place], [address], 05/29/2024 10:45:47 05/28/20 24 ECG 12-le ad [facility] [address] [facility] [place] [address] [facility]`s [place] [address] [place], [place] Test Date: 2023-08 Pat Name: LYUDMILA Degroot ment: 41 [place] t ID: [id number] Room: [facility] Gender : Female Techni ban: [id number] : 6-30 Reques mike By: RAYNA ALEXANDER Order Number : [id number] Leslie john MD: Tez Ayala i Measur ements Interv als Marshall Rate: 55 P: 32 ME: 142 QRS: -15 QRSD: 83 T: 16 QT: 425 QTc: 408 Interp retive Statem ents SINUS BRADYC ARDIA Compar ed to ECG 2023 11:52: 57 No signif icant change s Electr onical ly signed by Tez Ayala i at 2023 22:04: 51 CDT [email or web address] [facility] [address] [facility], [place], [place], [address], 05/29/2024 10:45:47 Result Notes None recorded. Problems Name Problem SNOMED Code Status Onset Date Resolution Date Notes Provider Name and Address Organization Details Recorded Time Rheumatoid arthritis 74263300 Active 2017 Not Available [facility] 17:58:42 Sleep apnea 23597591 Active 2017 Not Available [facility] 3 17:58:42 Obesity 873576371 Active 2017 Not Available [facility] 3 17:58:42 Degeneration of intervertebra l disc 18314594 Active 2017 Not Available [facility] 3 17:58:42 Neuropathy 168865065 Active 2017 Not Available [facility] 3 17:58:42 Hypothyroidis m 02344070 Active 2017 Not Available [facility] 3 17:58:43 Prediabetes 446535561 Active 2017 Not Available [facility] 3 17:58:42 Notes:Some problems listed i n Documents: #[id number], #[id number] could not be added to this patient's chart. Please review these documents and add these problems to the patient's chart manually as needed. Problem Notes None recorded. Procedures Surgical History Date Name Laterality Status Provider Name and Address Organization Details Recorded Time 07/14/20 Cryosurgery Warts/Skin Tags completed Marta Calles MD Attn: Accounting, [address] [place], [address], [facility] 07/14/2023 15:48:56 Tubal Ligation completed Erica Egan [place] - [facility] 02/15/2018 10:39:23 Cholecystectomy completed Erica Egan [place] - [facility] 02/15/2018 10:39:35 Imaging Results Imaging Date Name Status LastModified by Organiz ation Details LastModified Time 03/22/2024 MAMMO, screening, tomosynthesis, bilateral completed [email or web address] [address], [place], [address], 04/29/2024 22:52:42 03/22/2024 MAMMO, screening, tomosynthesis, bilateral completed [email or web address] [facility] [place], [address], 05/01/2024 17:10:52 05/28/2024 XR, chest completed [email or web address] [address], [place], [address], 05/29/2024 10:45:46 05/28/2024 ECG 12-lead completed [address] [facility], [place], [place], [address], 05/29/2024 10:45:46 05/28/2024 ECG 12-lead completed [address], [place], [address], 05/29/2024 10:45:46 05/28/2024 ECG 12-lead completed [address], [place], [address], 05/29/2024 10:45:47 05/28/2024 ECG 12-lead completed [address] [facility], [place], [place], [address], 05/29/2024 10:45:47 Procedure Notes None recorded. Medical Equipment None Reported. Allergies Allergen ID Allergen Name Allergen Category Reaction Reaction Severity Criticality Documentation Date Start Date Code Code System Note Provider Name and Address Organization Details Recorded Time 694766 tramadol medicatio n Not available Not available Not available 05/17/20222017 20596 RxNorm Other react ions and sever ities [...] directed for 28 days. 02/14 completed [facility] rx. Not Available Not Available Not Available Moisture Barrier Ointment 0.44 %-20.6 % APPLY 1 GRAM TOPICALL Y TO THE AFFECTED AREA EVERY DAY FOR 10 DAYS DIRECTED 05/17 completed Not Available Not Available Not Available Nurte ODT 75 mg disintegr ating tablet take 1 tablet every day by oral route as needed for 30 days 08/24 completed PA denied Not Available Not Available Not Available Mounjaro 5 mg/0.5 mL subcutane ous pen injector Inject 5 mg every week by subcutan eous route. 2023 active Not Available Not Available Not Avai lable Mounjaro 2.5 mg/0.5 mL subcutane ous pen injector Inject 2.5 mg every week by subcutan eous route for 28 days. 07/11 completed Not Available Not Available Not Available Vitals Date Recorded Body height Body mass index (BMI) Body weight Oxygen saturation Oxygen saturation in Arterial blood by Pulse oximetry Body temperature Heart rate Systolic blood pressure Diastolic blood pressure Provider Name and Address Organization Details Last Updated DateTime 4 168.91 cm 36.5 kg/m2 029826. 1 g 97 % 97 % 98 [degF] 61 /min 120 mm[Hg] 82 mm[Hg] Lidia Mcdowell [place] - [facility] 4 15:14:53 Date Recorded Body height Body mass index (BMI) Body weight Body temperature Heart rate Oxygen saturation Oxygen saturation in Arterial blood by Pulse oximetry Systolic blood pressure Diastolic blood pressure Provider Name and Address Organization Details Last Updated DateTime 4 168.91 cm 36.3 kg/m2 917014. 81 g 97.6 [degF] 82 /min 97 % 97 % 102 mm[Hg] 72 mm[Hg] Vicki Hopper MA [facility] 4 14:16:51 Date Recorded Body height Provider Name an d Address Organization Details Last Updated DateTime 12/30/2023 168.91 cm Vicki Hopper MA [facility] 024 10:21:38 Date Recorded Body height Body mass index (BMI) Body weight Body temperature Oxygen saturation Oxygen saturation in Arterial blood by Pulse oximetry Heart rate Systolic blood pressure Diastolic blood pressure Provider Name and Address Organization Details Last Updated DateTime 4 168.91 cm 35 kg/m2 62175.7 7 g 97.9 [degF] 95 % 95 % 134 /min 110 mm[Hg] 77 mm[Hg] Lidia Mcdowell MA [facility] 4 15:25:58 Date Recorded Body height Body mass index (BMI) Body weight Heart rate Oxygen saturation Oxygen saturation in Arterial blood by Pulse oximetry Body temperature Systolic blood pressure Diastolic blood pressure Provider Name and Address Organization Details Last Updated DateTime 4 168.91 cm 34.5 kg/m2 79556.2 9 g 67 /min 99 % 99 % 98.3 [degF] 114 mm[Hg] 79 mm[Hg] Kristen Cota MA [facility] 4 10:56:42 Social History Question Answer Notes LastModified by Organizat ion Details LastModified Time Tobacco Smoking Status Former Smoker Quit years ago Kristen Cota MA [facility], [facility] 07/11/2024 10:55:19 What Is Your Level Of Alcohol Consumption? Occasional [email or web address] Information not available 02/15/2018 What Is Your Level Of Caffeine Consumption? Heavy [email or web address] Information not available 02/15/2018 How Much Tobacco Do You Chew? None [email or web address] Information not available 02/15/2018 What Type Of Diet Are You Following? REGULAR [email or web address] Information not available 02/15/2018 Which Illicit Or Recreational Drugs Have You Used? None [email or web address] Information not available 02/15/2018 Education 12 [email or web address] Information not available 02/15/2018 Hard Of Hearing Or Deaf In One Or Both Ears? No Information not available 02/15/2018 Legally Blind In One Or Both Eyes? No [email or web address] Information not available 02/15/2018 Live Alone Or With Others? With Others [email or web address] Information not available 02/15/2018 What Was The Date Of Your Most Recent Tobacco Screening? 07/11/2024 [email or web address] Information not available 07/11/2024 How Many Children Do You Have? 3 [email or web address] Information not available 02/15/2018 Do You Use Protection During Sex? Always [email or web address] Information not available 02/15/2018 Are You Sexually Active? Yes [email or web address] Information not available 02/15/2018 Are You Passively Exposed To Smoke? Yes Information not available 02/15/2018 How Much Tobacco Do You Smoke? No [email or web address] Information not available 02/15/2018 General Stress Level High [email or web address] Information not available 02/15/2018 Do You Use Any Illicit Or Recreational Drugs? No [email or web address] Information not available 05/17/2022 How Many Years Have You Smoked Tobacco? 0 [email or web address] Information not available 02/15/2018 Sex: Unknown Functional Status Question Answer Note LastModified by Organization D etails LastModified Time Are you able to care for yourself? Yes Information n ot available 02/15/2018 Mental Status [...] PF, 0.5 mL 1 completed Not Available [facility] 08/27/2023 00:52:05 Influenza, split virus, trivalent, preservative 3 completed Not Available [facility] 08/27/2023 00:52:06 COVID-19 vaccine, vector-nr, rS-Ad26, PF, 0.5 mL 1 completed Not Available [facility] 08/27/2023 00:52:06 Tdap 6 completed Not Available [facility] 08/27/2023 00:52:06 Past Encounters Encounter ID Performer Location Encounter Start Date Encounter Closed Date Diagnosis/Indication Diagnosis SNOMED-CT Code Diagnosis ICD10 Code Diagnosis Note [id number] Ishaan Oden MD [facility] (Family Med) [address] [place] [address] 02/15/2018 10:10:09 02/16/2018 09:20:59 Obesity 449228515 E66.9 Sleep apnea 88702779 G47 .30 Rheumatoid arthritis 698 45187 M06.9 Hypothyroidism 27226524 E03.9 Degenerati on of intervertebral disc 52351081 M51.9 [id number] Ishaan Oden MD [facility] (Family Med) [address] [place] [address] 05/29/2018 12:10:45 05/31/2018 16:16:46 Prediabetes 554445375 R73.03 Neuropathy 852872173 G62 .9 [id number] Ishaan Oden MD [facility] [place] ([facility]) [address] [place] [address] 09/08/2018 14:05:45 09/11/2018 11:19:50 Rheumatoid arthritis 52830591 M06.9 Type 2 selina betes mellitus 59871073 E11.9 Hypothyroidism 10970699 E03.9 Sleep apnea 48777425 G47 .30 [id number] SHAY HERNANDEZ MD [place] [address] [address] [facility] [address] [place] [address] 01/14/2022 14:53:25 01/15/2022 09:13:47 Prediabetes 806540717 R73.03 Last a1c was 6.1 in 2019Not on any medication s right nownot seeing eye or foot doctor but is checking feet regularly- will need new labs to get baseline since everything was in 2019-bharti get a1c, CMP, lipid panel, and urine albumin.cr Hypothyroidism 32027763 E03.9 Last TSH with T4 waas 1.56 and 1.4 respective ly in 2019. She is having symptoms of fatigue, depression , bradycardi a so its possible it is hypothyroi d again since she is not taking any medication -will recheck tsh and t4 Depressive disorder 9464 0784 F32.A PHQ-13. She is having sx's (see HPI). No SI or HI. Return precaution s given. This could also be related to thyroid so will check that. This could also be acute stress disorder given the situation at home with her getting out of longterm and being hospitaliz ed Family his tory of cancer of colon 366110416 Z80.0 Father had colon cancer at 42. She needs to be screened. 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 No ssigns of infection- will send moisturize r cream Rheumatoid arthritis 698 37723 M06.9 [id number] Kaylyn Daniel-Wilfredo blas MD [facility] [address] [address] 05/17/2022 09:57:42 05/25/2022 13:36:22 Prediabetes 009438549 R73.03 Chronic, stable. Last A1c 6.1. Requesting repeat A1c which was still 6.1 today.- Discussed lifestyle change including goal weight loss of 7% of initial body weight, moderate intensity exercise 150 minutes/we ek- Consider metformin for BMI >35, age <60 Neuropathy 675414706 G62 .9 Chronic, has had workup at [facility] but records are not available. Unclear source for neuropathy as she does not have diabetes. Unsure if she has had lab workup for neuropathy already but states she has had EMG/NCS.- Release of records for Dr. Gamboa at [facility]- Restart gabapentin 600 mg tid- Referral to neurology for further workup per patient request Headache 41700685 R51.9 Suspect medication overuse headache due to high doses of OTC aspirin/ca ffeine (BC) medication daily. Neuro exam is normal.- Counseled to stop BC medication - Consider restarting topamax for ppx next visit if still having headaches off of OTC meds Obesity 856808968 E66.9 [id number] Pat Shine MD [facility] 47 [address] [facility] [address] [place] [address] 08/06/2022 15:07:03 08/10/2022 12:30:20 Prediabetes 267049279 R73.03 A1c was 6.0 today. See plan for obesity for diet and exercise. Obesity 335039425 E66.9 - BMI over 30 - Work hard to reduce carbohydra hattie and total calories - May use free smart phone dakota '[employer]' to help track calories and try to [...] weight loss medication s Depression screening 171 728109 Z13.31 PHQ 2 negative Pain in ri t hip joint 1336833751 33286 M25.551 OA vs labral pathology vs femoractab ular syndrome. No worrisome signs on infection. Positive VASILE and FADIR. Mild trochanter ic tenderness to palpation but does not reproduce her pain. Will send to PT and do NSAIDS with tylenol. WIll need to get hip xray and may need more advanced imaging., Migraine with aura 60571 06 G43.109 SNOOP red flags negative. Has preceding aura prior to migraine. Photophobi a, pulsatile. Doesn't take chronic NSAIDS. Will get [facility] for abortive therapy for right now. Cannot take sumatripti an for risk of combinatio n with gabapentin (may incr. risk of profound CREDENTIALING MANAGER and resp. depression , psychomoto r impairment ) [id number] Pablo bello MD [facility] 47 [address] [facility] [address] [place] [address] 12/17/2022 10:16:21 12/23/2022 16:19:10 Pain of right elbow joint 0310263105 3157570 M25.521 Most likely lateral epidonliti s based on exam. Could be OA as well. Atraumatic so less likely fracture-w ill give countertra ction strap and send to OT-will get Xray to look for loose bodies or stress fracture Pain in ri t hip joint 2756478907 38250 M25.551 OA vs labral pathology vs femoractab ular syndrome. No worrisome signs on infection. WIll send to ortho for injections vs replacemen t. Did have hip xray 10/2022 that showed degenerati ve changes in right hip [id number] KRISTEN SEQUEIRA DO [facility] [address] [place] [address] [address] 03/30/2023 09:07:52 03/31/2023 14:11:50 Exposure to radon 1830590399 0117458 Z77.123 Been exposed to cigarette smoke in household for 20+ years and she herself has smoked for 15 years. Asx. Does have weight loss. given high risk smoking exposure and radon levels >8 for a couple of years will send to radiology for LDCT Insomnia 030298074 G47.0 0 Chronic, 3 months. Think it related to mood. No caffiene intake. No new meds. No snoring or concerns of TEMI or cardiac concerns.- encouraged good sleep hygiene-wi ll trial trazadone 50mg nightly and RTC in 1 month to reeval [id number] SHAY HERNANDEZ MD [place] [address] [address] [address] 07/14/2023 15:11:34 08/11/2023 10:28:55 Hand wart 879108072 B07.8 on middle finger. not infected. Patient elected to proceed with cryotherap y. Talkeda bout alternativ e treatments and return precaution s given Seasonal allergy 8376113 04 J30.2 Chronic controlled with flonase. needs refill [id number] James Ramsay MD [place] [id number] [address] 07/28/2023 12:01:41 07/29/2023 16:18:09 Acute dermatitis [id number] L30.9 see callosity of hand problem Callosity on hand [id number] 002 L84 R22.31 53 yof s/p cryotherap [...] return precaution s Seronegati ve rheumatoid arthritis [id number] M06.00 pt carries the dx of seronegati ve rheumatoid arthritis, has seen multiple rheum providers int he past most recent rheum note in care everywhere was via Dung Estevez MD on , note mentions restart lelfunomid e, unclear if pt has started this med yet [id number] Pat Shine MD [facility] [address] [facility] [address] [place] [address] 08/12/2023 14:54:51 08/16/2023 12:50:58 Screening for malignant neoplasm of colon [id number] Z12.11 Callosity on hand 968709 002 L84 Still present despite cryotherap y and topical steroids. Painful. to her. Does not appear to move with tendon ddx: tendon sheath tumor vs calluses vs rheumatoid nodules vs tophi entity vs wart vs other-prob ably would benefit from hand surgeon at this time Obesity 152880666 E66.9 - BMI over 30- Work hard to reduce carbohydra hattie and total calories- May use free smart phone dakota '[employer]' to help track calories and try to [...] try victoza and RTC in 1 month [id number] Eduardo Sanchez MD [facility] [address] [facility] [address] [place] [address] 11/29/2023 14:05:40 11/30/2023 16:13:17 Screening for malignant neoplasm of colon [id number] Z12.11 did not tolerate GI prep for colonoscop y however on chart review had cologuard in 2021 that was negative will need in in 1 year Obesity 766678122 E66.9 - BMI over 30- Work hard to reduce carbohydra hattie and total calories- May use free smart phone dakota '[employer]ourage' to help track calories and try to [...] month Screening for malignant neoplasm of cervix 378653129 Z12.4 January 03 with gyne Screening mammography 24 852667 Z12.31 [id number] TERELL Ramirez MD [place] [address] [address] [facility] [address] [place] [address] 12/30/2023 08:22:03 01/02/2024 15:24:27 Obesity 221422914 E66.9 - BMI over 30, down 3lbs since last visit - Work hard to reduce carbohydra hattie and total calories- May use free smart phone dak[employer] '[employer]' to help track calories and try to [...] increase victoza and RTC in 1 month [id number] [facility] [address] [place] [address] 03/02/2024 15:18:57 03/07/2024 11:21:06 Prediabetes 865517261 R73.03 - needs for pre-diabet es- previously on victoza: now on mounjaroMe dication refill Adult heal th examination 267533049 Z00.00 - mammograph y: march 08- see [facility]BG[facility] for pap smears- Had carlos (-) [id number] [facility] [address] [facility] [address] [place] [address] 07/11/2024 10:49:02 07/19/2024 12:52:47 Loss of hair 676462315 L65.9 Recent hair loss and excessive tiredness- Pt states previously they found her Thyroid levels to be off but they normalized after a whileManag ement:- given pts hx of thyroid level derangemen t will check TSH and t4Plan:- If thyroid levels are low can consider starting pt on levothyrox ine and also sending her for thyroid scan 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 [...] her to a dermatolog ist. Diabetes mellitus 183479 09 E11.9 Pt currently taking 2.5 mg [...] Martinez Member ID Guarantor Name 08/12/2023 1 [facility] [id number] Lyudmila Jade [id number] Lyudmila Jade 11/29/2023 1 [facility] (MEDICARE REPLACEMENT/A DVANTAGE - PPO) [id number] Lyudmila Jade [id number] Lyudmila Jade 12/30/2023 1 [facility] (MEDICARE REPLACEMENT/A DVANTAGE - PPO) [id number] Lyudmila Jade [id number] Lyudmila Jade 03/02/2024 1 [facility] (MEDICARE REPLACEMENT/A DVANTAGE - PPO) [id number] Lyudmila Motta Jade [id number] Lyudmila Jade 07/11/2024 1 [facility] (MEDICARE REPLACEMENT/A DVANTAGE - PPO) [id number] Lyudmila Jade [id number] Lyudmila Jade Notes Date Note Type Note Provider [...] that. Pat Shine MD Attn: [address] [place], [address], [place] [facility] 08/12/2023 16:44:20 11/29/2023 text/html Pt 53 yof [...] pain Eduardo Sanchez MD Attn: [address] [facility], [place], [address], [facility] 11/30/2023 10:51:36 12/30/2023 text/html ObesityReported [...] therapy TERELL MADDOX MD Attn: [address] [facility], [place], [address], [facility] 01/02/2024 09:55:11 03/02/2024 text/html 54 yr old female here for medication refill. Pt denies any headache, blurry vision, sob, chest pain, or abdominal pain. TERELL MADDOX MD Attn: [address] [facility], [place], [address], [facility] 03/05/2024 12:39:36 07/11/2024 text/html Lyudmila Jade is [...] decided to f/u w/ an ortho at [facility] on 07/20/24. Reports hair loss, fatigue, and drier unloader skin than normal x2-3 months. Pt has hx of hypothyroidism. Denies any enlargement of neck or thyroid. Requesting labs to check her thyroid levels and any vitamin deficiencies. Also reports lesion above her left eyelid for the past few months. Denies any pain or drainage. Pt has cosmetic concern. Albert Kasper MD Attn: [address]ing,[address] [facility], [place], [address], [facility] 07/17/2024 10:34:55 OBGyn Episode No OBEpisode recorded.
--- OUTSIDE RECORDS SUMMARY | 2024-09-12 13:15 | XMS_ITS | Patient Health Summary ---
Author Organization [facility] Address [address] [place] [address] Care Team Providers Care Filer Helper Name Role Phone Andrea Calles MD Primary Care Provider [phone] Dung Estevez MD Unavailable Note from [facility] [place]note 2],non-owned Affiliates and Associated Physician Practices is amultiple site organization consisting of ambulatory clinics and hospital sitesin [place], [place], [place] and [place]. This disclosure is being madepursuant to the Care Everywhere program and may not contain all information available regarding this patient. Last updated 18.[facility] Allergies No known active allergies* Codeine(Itching) -Low Criticality,Inactive * Tramadol(GI Discomfort),Inactive Medications * Be aware that medications may not be up to date on this document. Alwaysverify current medications with the patient. * levothyroxine (SYNTHROID) 88 MCG tablet(Started 05/23/2015) Take 88 mcg by mouth once daily * leflunomide (ARAVA) 10 MG tablet(Started 02/20/2018) Take 1 tablet by mouth once daily for 30 days 2 refills remaining * SUMAtriptan (Imitrex) 25 MG tablet(Started 09/12/2022) Take 1 (one) tablet by mouth as directed * escitalopram (Lexapro) 10 MG tablet(Started 01/15/2022) * predniSONE (Deltasone) 10 MG tablet(Started 04/19/2023) 1 tab po q day for 10 days and then 1 tab po q day as needed * tiZANidine (Zanaflex) 4 MG tablet(Started 04/19/2023) Take 1 (one) tablet by mouth every 8 hours as needed for Muscle Spasms * leflunomide (Arava) 20 MG tablet(Started 05/19/2023) Take 1 (one) tablet by mouth once daily * acetaminophen (TYLENOL) 500 MG tablet(Started 08/06/2022) Take 2 tablets every 6 hours by oral route as needed for 10 days. * amoxicillin-clavulanate (Augmentin) 500-125 MG tablet(Started 09/23/2023) TAKE 1 TABLET BY MOUTH THREE TIMES DAILY UNTIL 24 HOURS AFTER SYMPTOMS RESOLVE * doxycycline hyclate (Vibramycin) 100 MG capsule Take 1 (one) capsule by mouth 2 times daily * fluticasone propionate (Flonase) 50 MCG/ACT nasal spray SHAKE LIQUID AND ADMINISTER 1 SPRAY INTO EACH NOSTRIL USE DIRECTED * ibuprofen (Motrin) 600 MG tablet Take 1 tablet 3 times a day by oral route as needed for 30 days. * Sure Comfort Pen [place] 31G X 8 MM needle(Started 11/16/2023) USE DAILY TO inject victoza * Victoza 18 MG/3ML pen INJECT 1.2MG under the skin EVERY DAY DIRECTED * promethazine (Phenergan) 25 MG tablet * traZODone (Desyrel) 50 MG tablet Take 1 (one) tablet by mouth once daily * triamcinolone acetonide (Kenalog) 0.1 % ointment APPLY THIN LAYER TOPICALLY TO THE AFFECTED AREA TWICE DAILY FOR 7 DAYS Active Problems Problem Noted Date Diagnosed Date Closed fracture of left distal forearm, sequela 01/07/2022 History of rheumatoid arthritis 10/08/2021 Bilateral hand pain 10/08/2021 Carpal tunnel syndrome on right 10/08/2021 Seronegative rheumatoid arthritis 02/23/2018 Immunizations * FLU VACCINE TRI IIV3 SPLIT IM (FLUVIRIN)(Given 05/10/2013) * INFLUENZA VACCINE, QUADR. (FLUZONE; FLULAVAL; FLUARIX; AFLURIA QUADRIVALENT; 6MO+), 0.5 ML (IIV4)(Given 05/30/2020) * Influenza Intradermal(Given 08/24/2016) * TDAP, HISTORIC VACCINE(Given 09/12/2015) Social History Tobacco Use Types Packs/Day Years [...] CDT Oxygen Saturation 99% 08/25/2023 1:31 PM [facility] Inhaled Oxygen Concentration - - Weight 104.5 kg (230 lb 6.4 oz) 10/28/2023 3:20 PM CDT Height 170.2 cm (5' 7 ) 08/25/2023 1:31 PM [facility] Body Mass Index 36.09 08/25/2023 1:31 PM [facility] Procedures * DERMATOPATHOLOGY(Performed 08/31/2023) Performed for Neoplasm of uncertain behavior of skin * XR CHEST 2VW(Performed 08/25/2023) Performed for Arthralgia, unspecified joint * ERYTHROCYTE SEDIMENTATION RATE(Performed 08/25/2023) Performed for Arthralgia, unspecified joint * C-REACTIVE PROTEIN(Performed 08/25/2023) Performed for Arthralgia, unspecified joint * QUANTIFERON TB-GOLD(Performed 08/25/2023) Performed for Arthralgia, unspecified joint * COMPREHENSIVE METABOLIC PANEL(Performed 08/25/2023) Performed for Arthralgia, unspecified joint * CBC W AUTO DIFFERENTIAL(Performed 08/25/2023) Performed for Arthralgia, unspecified joint * XR FOOT BILAT 3VW OR MORE(Performed 04/19/2023) Performed for Arthralgia, unspecified joint * XR HAND BILAT 3VW OR MORE(Performed 04/19/2023) Performed for Arthralgia, unspecified joint * INTERPRETATION REFLEXED(Performed 04/19/2023) Performed for Arthralgia, unspecified joint * HEPATITIS SCREEN ACUTE ([facility])(Performed 04/19/2023) Performed for Arthralgia, unspecified joint * PATITO BLOOD SCREEN W/REFLEX TITER(Performed 04/19/2023) Performed for Arthralgia, unspecified joint * CYCLIC CITRUL PEPTIDE ANTIBODY IGG/IGA ([facility])(Performed 04/19/2023) Performed for Arthralgia, unspecified joint * RHEUMATOID FACTOR BLOOD QUANTITATIVE(Performed 04/19/2023) Performed for Arthralgia, unspecified joint * VITAMIN D 25-HYDROXY(Performed 04/19/2023) Performed for Arthralgia, unspecified joint * TSH(Performed 04/19/2023) Performed for Arthralgia, unspecified joint * ERYTHROCYTE SEDIMENTATION RATE(Performed 04/19/2023) Performed for Arthralgia, unspecified joint * C-REACTIVE PROTEIN(Performed 04/19/2023) Performed for Arthralgia, unspecified joint * CK BLOOD(Performed 04/19/2023) Performed for Arthralgia, unspecified joint * ALDOLASE(Performed 04/19/2023) Performed for Arthralgia, unspecified joint * COMPREHENSIVE METABOLIC PANEL(Performed 04/19/2023) Performed for Arthralgia, unspecified joint * CBC W AUTO DIFFERENTIAL(Performed 04/19/2023) Performed for Arthralgia, unspecified joint * CBC W AUTO DIFFERENTIAL W/O PLATELETS(Performed 01/01/2021) * HEPATITIS SCREEN ACUTE(Performed 01/01/2021) Performed for Seronegative rheumatoid arthritis of multiple sites (HCC), High risk medications (notanticoagulants) long-term use * QUANTIFERON TB-GOLD(Performed 01/01/2021) Performed for Seronegative rheumatoid arthritis of multiple sites (HCC), High risk medications (notanticoagulants) long-term use, Screening for tuberculosis * COMPREHENSIVE METABOLIC PANEL(Performed 01/01/2021) Performed for Seronegative rheumatoid arthritis of multiple sites (HCC), High risk medications (notanticoagulants) long-term use * ERYTHROCYTE SEDIMENTATION RATE(Performed 01/01/2021) Performed for Seronegative rheumatoid arthritis of multiple sites (HCC) * C-REACTIVE PROTEIN(Performed 01/01/2021) Performed for Seronegative rheumatoid arthritis of multiple sites (HCC) * QUANTIFERON-TB GOLD PLUS 4-TUBE(Performed 02/07/2020) Performed for Seronegative rheumatoid arthritis of multiple sites (HCC) * C-REACTIVE PROTEIN(Performed 02/07/2020) Performed for Seronegative rheumatoid arthritis of multiple sites (HCC) * ERYTHROCYTE SEDIMENTATION RATE(Performed 02/07/2020) Performed for Seronegative rheumatoid arthritis of multiple sites (HCC) * COMPREHENSIVE METABOLIC PANEL(Performed 02/07/2020) Performed for Seronegative rheumatoid arthritis of multiple sites (HCC) * CBC W AUTO DIFFERENTIAL(Performed 02/07/2020) Performed for Seronegative rheumatoid arthritis of multiple sites (HCC) * ERYTHROCYTE SEDIMENTATION RATE(Performed 06/21/2019) Performed for Seronegative rheumatoid arthritis of multiple sites (HCC) * C-REACTIVE PROTEIN(Performed 06/21/2019) Performed for Seronegative rheumatoid arthritis of multiple sites (HCC) * COMPREHENSIVE METABOLIC PANEL(Performed 06/21/2019) Performed for Seronegative rheumatoid arthritis of multiple sites (HCC) * CBC W AUTO DIFFERENTIAL(Performed 06/21/2019) Performed for Seronegative rheumatoid arthritis of multiple sites (HCC) * QUANTIFERON-TB GOLD PLUS 4-TUBE(Performed 02/19/2019) Performed for Seronegative rheumatoid arthritis of multiple sites (HCC) * ANGIOTENSIN CONVERTING ENZYME BLOOD(Performed 08/31/2018) * HEMOGLOBIN A1C(Performed 08/31/2018) Performed for Pre-diabetes * ERYTHROCYTE SEDIMENTATION RATE(Performed 08/31/2018) Performed for Rheumatoid arthritis of multiple sites without rheumatoid factor (HCC) * C-REACTIVE PROTEIN(Performed 08/31/2018) Performed for Rheumatoid arthritis of multiple sites without rheumatoid factor (HCC) * COMPREHENSIVE METABOLIC PANEL(Performed 08/31/2018) Performed for High risk medications (not anticoagulants) long-term use, Rheumatoid arthritis of multiple sites without rheumatoid factor (HCC) * CBC W AUTO DIFFERENTIAL(Performed 08/31/2018) Performed for High risk medications (not anticoagulants) long-term use, Rheumatoid arthritis of multiple sites without rheumatoid factor (HCC) * C-REACTIVE PROTEIN(Performed 05/29/2018) Performed for Seronegative rheumatoid arthritis (HCC) * COMPREHENSIVE METABOLIC PANEL(Performed 05/29/2018) Performed for Seronegative rheumatoid arthritis (HCC), High risk medications (not anticoagulants) long-term use * CBC W AUTO DIFFERENTIAL(Performed 05/29/2018) Performed for Seronegative rheumatoid arthritis (HCC), High risk medications (not anticoagulants) long-term use * ERYTHROCYTE SEDIMENTATION RATE(Performed 05/29/2018) Performed for Seronegative rheumatoid arthritis (HCC) * XR HAND BILAT 2VW(Performed 02/22/2018) Performed for Seronegative rheumatoid arthritis (HCC) * QUANTIFERON IN TUBE REFLEXED(Performed 02/22/2018) Performed for Seronegative rheumatoid arthritis (HCC) * HCV COMMENT(Performed 02/22/2018) Performed for Seronegative rheumatoid arthritis (HCC) * ANGIOTENSIN CONVERTING ENZYME BLOOD(Performed 02/22/2018) Performed for Seronegative rheumatoid arthritis (HCC) * PATITO BLOOD SCREEN W/REFLEX TITER(Performed 02/22/2018) Performed for Seronegative rheumatoid arthritis (HCC) * QUANTIFERON TB-GOLD(Performed 02/22/2018) Performed for Seronegative rheumatoid arthritis (HCC) * HEPATITIS B + C PANEL(Performed 02/22/2018) Performed for Seronegative rheumatoid arthritis (HCC) * RHEUMATOID FACTOR BLOOD QUANTITATIVE(Performed 02/22/2018) Performed for Seronegative rheumatoid arthritis (HCC) * HLA TYPING B27(Performed 02/22/2018) Performed for Seronegative rheumatoid arthritis (HCC) * CYCLIC CITRUL PEPTIDE ANTIBODY IGG/IGA ([facility])(Performed 02/22/2018) Performed for Seronegative rheumatoid arthritis (HCC) * ERYTHROCYTE SEDIMENTATION RATE(Performed 02/22/2018) Performed for Seronegative rheumatoid arthritis (HCC) * C-REACTIVE PROTEIN(Performed 02/22/2018) Performed for Seronegative rheumatoid arthritis (HCC) * HEMOGLOBIN A1C(Performed 05/10/2017) * TSH(Performed 05/10/2017) * T4 TOTAL(Performed 05/10/2017) * ERYTHROCYTE SEDIMENTATION RATE(Performed 05/10/2017) * COMPREHENSIVE METABOLIC PANEL(Performed 05/10/2017) * C-REACTIVE PROTEIN(Performed 05/10/2017) * CBC W AUTO DIFFERENTIAL(Performed 05/10/2017) * CBC W AUTO DIFFERENTIAL(Performed 05/10/2017) * VITAMIN D 25-HYDROXY(Performed 05/10/2017) * VITAMIN B12(Performed 05/10/2017) * CK BLOOD(Performed 05/10/2017) * ERYTHROCYTE SEDIMENTATION RATE(Performed 12/28/2016) * CBC W AUTO DIFFERENTIAL(Performed 12/28/2016) * BASIC METABOLIC PANEL (CALCIUM TOTAL)(Performed 12/28/2016) * C-REACTIVE PROTEIN(Performed 12/28/2016) * CBC W AUTO DIFFERENTIAL(Performed 12/28/2016) * URINALYSIS W/MICROSCOPIC NO CULTURE(Performed 12/28/2016) * XR ELBOW RIGHT 3VW OR MORE(Performed 10/08/2016) * XR KNEE RIGHT 4VW OR MORE(Performed 09/30/2016) * XR PELVIS W RIGHT HIP 2VW(Performed 09/30/2016) * LIPID PROFILE - POINT OF CARE (AMB) SLU(Performed 09/23/2016) * HEMOGLOBIN A1C - POINT OF CARE (AMB) SLU(Performed 09/23/2016) * LIPID PROFILE - POINT OF CARE (AMB) SLU(Performed 09/23/2016) * URINALYSIS W/MICROSCOPIC NO CULTURE(Performed 08/24/2016) * QUANTIFERON TB-GOLD (CLIENT INCUBATED)(Performed 08/24/2016) * ERYTHROCYTE SEDIMENTATION RATE(Performed 08/24/2016) * COMPREHENSIVE METABOLIC PANEL(Performed 08/24/2016) * C-REACTIVE PROTEIN(Performed 08/24/2016) * CBC W AUTO DIFFERENTIAL(Performed 08/24/2016) * CBC W AUTO DIFFERENTIAL(Performed 08/24/2016) * XR HIP LEFT 2VW OR MORE(Performed 08/24/2016) * XR KNEE RIGHT 3VW(Performed 08/24/2016) * XR KNEE LEFT 3VW(Performed 08/24/2016) * XR SI JOINTS 2VW OR LESS(Performed 08/24/2016) * XR PELVIS W RIGHT HIP 2VW(Performed 08/24/2016) * XR CHEST 2VW(Performed 08/24/2016) * URINALYSIS MICROSCOPIC ONLY REFLEXED(Performed 04/20/2016) * URINALYSIS W/MICROSCOPIC REFLEX TO CULTURE(Performed 04/20/2016) * ERYTHROCYTE SEDIMENTATION RATE(Performed 04/20/2016) * C-REACTIVE PROTEIN(Performed 04/20/2016) * COMPREHENSIVE METABOLIC PANEL(Performed 04/20/2016) * CBC W AUTO DIFFERENTIAL(Performed 04/20/2016) * URINALYSIS MICROSCOPIC ONLY REFLEXED(Performed 02/26/2016) * URINALYSIS W/MICROSCOPIC REFLEX TO CULTURE(Performed 02/26/2016) * ERYTHROCYTE SEDIMENTATION RATE(Performed 02/26/2016) * C-REACTIVE PROTEIN(Performed 02/26/2016) * COMPREHENSIVE METABOLIC PANEL(Performed 02/26/2016) * CBC W AUTO DIFFERENTIAL(Performed 02/26/2016) * XR HAND LEFT 3VW OR MORE(Performed 05/27/2015) * XR HAND RIGHT 3VW OR MORE(Performed 05/27/2015) * XR FOOT RIGHT 3VW OR MORE(Performed 05/27/2015) * XR FOOT LEFT 3VW OR MORE(Performed 05/27/2015) * XR CHEST 2VW(Performed 05/27/2015) * QUANTIFERON TB-GOLD (CLIENT INCUBATED)(Performed 05/27/2015) * HISTONE ANTIBODY(Performed 05/27/2015) * PATITO BLOOD SCREEN W/REFLEX TITER(Performed 05/27/2015) * COMPLEMENT TOTAL(Performed 05/27/2015) * POTATO SEED CUTTER ANTIBODY(Performed 05/27/2015) * SS-B (SJOGREN'S) ANTIBODY(Performed 05/27/2015) * SS-A (SJOGREN'S) ANTIBODY(Performed 05/27/2015) * VILLALOBOS (SM) ANTIBODY АНДРЕЙ(Performed 05/27/2015) * SCLERODERMA 70 (SCL) ANTIBODY(Performed 05/27/2015) * DNA ANTIBODY DOUBLE STRANDED(Performed 05/27/2015) * COMPLEMENT C4(Performed 05/27/2015) * COMPLEMENT C3(Performed 05/27/2015) * T4 FREE(Performed 05/27/2015) * ERYTHROCYTE SEDIMENTATION RATE(Performed 05/27/2015) * CYCLIC CITRULLINATED PEPTIDE([facility]) AB IGG(Performed 05/27/2015) * TSH(Performed 05/27/2015) * VITAMIN D 25-HYDROXY(Performed 05/27/2015) * HEPATITIS C ANTIBODY(Performed 05/27/2015) * HEPATITIS B SURFACE ANTIGEN W RFLX CONFIRMATION(Performed 05/27/2015) * RHEUMATOID FACTOR BLOOD QUANTITATIVE(Performed 05/27/2015) * COMPREHENSIVE METABOLIC PANEL(Performed 05/27/2015) * CK BLOOD(Performed 05/27/2015) * C-REACTIVE PROTEIN(Performed 05/27/2015) * URINALYSIS W/MICROSCOPIC NO CULTURE(Performed 05/27/2015) * CBC W AUTO DIFFERENTIAL(Performed 05/27/2015) * CBC W AUTO DIFFERENTIAL(Performed 05/27/2015) * XR KNEE BILAT 2VW OR LESS(Performed 12/07/2011) Performed for Pain in joint, site unspecified * XR HAND BILAT 3VW OR MORE(Performed 12/07/2011) Performed for Pain in joint, site unspecified * XR FOOT BILAT 3VW OR MORE(Performed 12/07/2011) Performed for Pain in joint, site unspecified Results * DERMATOPATHOLOGY (08/31/2023 12:00 AM [facility]) Case Report Dermatopathology Report Case: [id number] Authorizing Provider: Suhail Beth MD Collected: 08/31/2023 12:00 AM Ordering Location: [facility] DermPath Lab Received: 09/02/2023 09:40 AM Pathologist: Carol Angela MD Specimen: Skin, rigth 3rd finger 4:39 PM [facility] DERMATOPATHOLOGY LABORATORY Final Diagnosis Specimen A. SKIN, rigth 3rd finger: PARAKERATOSIS (L85.9) (see microscopic description and comment) 4:39 PM [facility] DERMATOPATHOLOGY LABORATORY Clinical History Wart vs Punctate Keratoderma vs. Other 4:39 PM [facility] DERMATOPATHOLOGY LABORATORY Gross Description Specimen A: Received is one formalin filled container labeled with the patient's name and designated rigth 3rd finger. The specimen consists of a shave biopsy measuring 5x5x1, 3x3x1, 2x1x1, 7x3x1, 7x4x1, 8x6x1, 9x5x1, 9x6x2 mm. Jar 0+. 4:39 PM [facility] DERMATOPATHOLOGY LABORATORY Microscopic Description Specimen A. SKIN, rigth 3rd finger: The specimen consisted mostly of stratum corneum with retained nuclei. There is no cellular epidermis present for evaluation. COMMENT: This type of stratum corneum is frequently seen overlying squamous proliferations such as actinic keratoses or squamous cell carcinomas; however, a wart or clavus are other diagnostic possibilities. 4:39 PM [facility] DERMATOPATHOLOGY LABORATORY Disclaimer An external and internal positive and negative controls are appropriate for the histochemical, immunohistochemical and immunofluorescence stain(s) in this case (if any), except where stated explicitly. The performance characteristics of the stain(s) cited in this report were developed and its performance characteristic determined by the Dermatopathology Laboratory at [facility], directed by Dr. Yasmin Ritchie. These tests need not be, and therefore are not, approved by the [place] Food and Drug Administration. The tests are used for clinical purposes. Billing Codes Specimen Charges Stain Charges 68648 1 4 4:39 PM [facility] DERMATOPATHOLOGY LABORATORY Embedded Images 4 4:39 PM [facility] DERMATOPATHOLOGY LABORATORY Pathology/Cytolog y TISSUE SPECIMEN FROM SKIN / Unknown 08/31/2023 09/02/2023 9:40 AM [facility] Suhail Beth MD LAB - PATHOLOGY/CYTO LOGY ORDERABLES DERMATOPATHOLOGY LABORATORY [facility] - Department of Dermatology [address] [place], [place] [address] [place] [address] * XR CHEST 2VW (08/25/2023 2:52 PM [facility]) Only the most recent of3 resultswithin the time period is included. Anatomical Region Laterality Modality Chest Radiographic Desi ging 08/25/2023 2:54 PM [facility] Impressions 08/25/2023 2:55 PM [facility] IMPRESSION: No acute cardiopulmonary abnormalities. > Interpreting Provider: Heike Reed MD on 08/25/2023 2:55 PM Narrative 08/25/2023 2:55 PM [facility] PROCEDURE: XR CHEST 2VW DATE/TIME OF EXAM: 08/25/2023 2:53 PM CLINICAL INFORMATION: None relevant/not provided if blank. Indication: M25.50: Pain in unspecified joint Additional History: Arthralgia COMPARISON: None. FINDINGS: The heart size is normal. The pulmonary vascularity is within normal limits. The lungs are well expanded and clear. No pleural effusion is seen. Procedure Note Heike Reed MD - 08/25/2023 PROCEDURE: XR CHEST 2VW DATE/TIME OF EXAM: 08/25/2023 2:53 PM CLINICAL INFORMATION: None relevant/not provided if blank. Indication: M25.50: Pain in unspecified joint Additional History: Arthralgia COMPARISON: None. FINDINGS: The heart size is normal. The pulmonary vascularity is within normal limits. The lungs are well expanded and clear. No pleural effusion isseen. IMPRESSION: No acute cardiopulmonary abnormalities. > Interpreting Provider: Heike Reed MD on 08/25/2023 2:55 PM Dung Estevez MD DIAGNOSTIC IMAGING O RDERABLES * (ABNORMAL) C-REACTIVE PROTEIN (08/25/2023 2:22 PM [employer] [facility]) Only the most recent of14 resultswithin the time period is included. Pathologist [facility] C-Reactive Protein 12(H) 0 - 10 mg/L [facility] ACCOUNT BILL Blood BLOOD SPECIMEN / Unknown 08/25/2023 2:22 PM [employer] [facility] 08/25/2023 Narrative Resulting Agency Comment Lab Testing performed at: [facility] [address] [id number] Dung Estevez MD LAB - CHEMISTRY PAVEL BISWAS [facility] ACCOUNT BILL [address] [place] [address] * QUANTIFERON TB-GOLD (08/25/2023 2:22 PM [employer]) Only the most recent of3 resultswithin the time period is included. Pathologist [facility] QuantiFERON Incubation Incubation performed. [facility] ACCOUNT BILL QuantiFERON Criteria [facility] ACCOUNT BILL Comment: QuantiFERON-TB Gold Plus is a qualitative indirect test for M tuberculosis infection (including disease) and is intended for use in conjunction with risk assessment, radiography, and other medical and diagnostic evaluations. The QuantiFERON-TB Gold Plus result is determined by subtracting the Nil value from either TB antigen (Ag) value. The Mitogen tube serves as a control for the test. QuantiFERON TB1 Ag Value 0.10 IU/mL [facility] ACCOUNT BILL QuantiFERON TB2 Ag Value 0.13 IU/mL [facility] ACCOUNT BILL QuantiFERON Nil Value 0.14 IU/mL [facility] ACCOUNT BILL QuantiFERON Mitogen Value >10.00 IU/mL [facility] ACCOUNT BILL QuantiFERON-TB Gold Plus Negative Negative [facility] ACCOUNT BILL Comment: No response to M tuberculosis antigens detected. Infection with M tuberculosis is unlikely, but high risk individuals should be considered for additional testing (ATS/IDSA/CDC Clinical Practice Guidelines, 2017). The reference range is an Antigen minus Nil result of <0.35 IU/mL. Chemiluminescence immunoassay methodology Blood BLOOD SPECIMEN / Unknown 08/25/2023 2:22 PM [employer] [facility] 08/25/2023 Narrative Resulting Agency Comment Lab Testing performed at: [facility] [address] [id number] Dung Estevez MD LAB - CHEMISTRY PAVEL BISWAS Performing Organization Address City/[facility]/ZIP Co de Phone Number [facility] ACCOUNT BILL [address] [place] [address] * ERYTHROCYTE SEDIMENTATION RATE (08/25/2023 2:22 PM [employer]) Only the most recent of14 resultswithin the time period is included. Erythrocyte Sedimentation Rate Westergren 26 0 - 40 mm/hr [facility] ACCOUNT BILL Blood BLOOD SPECIMEN / Unknown 08/25/2023 2:22 PM [employer] [facility] 08/25/2023 Narrative Resulting Agency Comment Lab Testing performed at: [facility] [place] [address] [id number] Dung Estevez MD LAB - HEMATOLOGY ORD TIFFANYBLES Performing Organization Address [facility] Co de Phone Number [facility] ACCOUNT BILL [address] [place] [address] * (ABNORMAL) CBC WITH DIFFERENTIAL (08/25/2023 2:22 PM [employer]) Only the most recent of16 resultswithin the time period is included. WBC 10.6 3.4 - 10.8 x10E3/uL [facility] ACCOUNT BILL RBC 4.32 3.77 - 5.28 x10E6/uL [facility] ACCOUNT BILL Hemoglobin 13.2 11.1 - 15.9 g/dL [facility] ACCOUNT BILL Hematocrit 39.8 34.0 - 46.6 % [facility] ACCOUNT BILL MCV 92 79 - 97 fL [facility] ACCOUNT BILL MCH 30.6 26.6 - 33.0 pg [facility] ACCOUNT BILL MCHC 33.2 31.5 - 35.7 g/dL [facility] ACCOUNT BILL RDW 12.7 11.7 - 15.4 % [facility] ACCOUNT BILL Platelet Count 318 150 - 450 x10E3/uL [facility] ACCOUNT BILL Granulocytes % 55 Not Estab. % [facility] ACCOUNT BILL Lymphocytes % 39 Not Estab. % [facility] ACCOUNT BILL Monocytes % 5 Not Estab. % [facility] ACCOUNT BILL Eosinophils % 1 Not Estab. % [facility] ACCOUNT BILL Basophils % 0 Not Estab. % [facility] ACCOUNT BILL Immature Cells NOT AVAILABLE [facility] ACCOUNT BILL Comment:Result cannot be obt ained for this observation. Granulocytes Absolute 5.8 1.4 - 7.0 x10E3/uL [facility] ACCOUNT BILL Lymphocytes Absolute 4.1(H) 0.7 - 3.1 x10E3/uL [facility] ACCOUNT BILL Monocytes Absolute 0.5 0.1 - 0.9 x10E3/uL [facility] ACCOUNT BILL Eosinophils Absolute 0.1 0.0 - 0.4 x10E3/uL [facility] ACCOUNT BILL Basophils Absolute 0.0 0.0 - 0.2 x10E3/uL [facility] ACCOUNT BILL Immature Granulocytes 0 Not Estab. % [facility] ACCOUNT BILL Immature Granulocytes Absolute 0.0 0.0 - 0.1 x10E3/uL [facility] ACCOUNT BILL nRBC NOT AVAILABLE [facility] ACCOUNT BILL Comment:Result cannot be obt ained for this observation. Comment Hematology NOT AVAILABLE [facility] ACCOUNT BILL Comment:Result cannot be obt ained for this observation. Blood BLOOD SPECIMEN / Unknown 08/25/2023 2:22 PM [facility] [facility] 08/25/2023 Narrative Resulting Agency Comment Lab Testing performed at: [facility] [address] [id number] Dung Estevez MD LAB - HEMATOLOGY ORD ERABLES [facility] ACCOUNT BILL [address] [place] [address] * (ABNORMAL) COMPREHENSIVE METABOLIC PANEL (08/25/2023 2:22 PM [facility]) Only the most recent of12 resultswithin the time period is included. Glucose 94 70 - 99 mg/dL [facility] [...] BLOOD SPECIMEN / Unknown 08/25/2023 2:22 PM [facility] 08/25/2023 Narrative Resulting Agency Comment Lab Testing performed at: [facility] [address] [id number] Dung Estevez MD LAB - CHEMISTRY PAVEL BISWAS [facility] ACCOUNT BILL [address] [place] [address] * XR FOOT BILAT 3VW OR MORE (04/19/2023 4:28 PM CDT) Only the most recent of2 resultswithin the time period is included. Anatomical Region Laterality Modality Ankle / Foot, Lower Extremity Ra diographic Imaging 04/19/2023 4:43 PM CDT Narrative 04/19/2023 4:47 PM CDT PROCEDURE(s): XR FOOT BILAT 3VW OR MORE DATE AND TIME OF EXAM(s): 04/19/2023 4:28 PM INDICATION(s): M25.50: Pain in unspecified joint. COMPARISON(s): Bilateral foot radiographs dated 12/07/2011. FINDINGS/IMPRESSION: No acute fracture or dislocation is seen. No significant osteoarthritic degenerative changes are seen. The soft tissues are unremarkable. > Interpreting Provider: Natalee Ames MD on 04/19/2023 4:47 PM Procedure Note Natalee Ames MD - 04/19/2023 PROCEDURE(s): XR FOOT BILAT 3VW OR MORE DATE AND TIME OF EXAM(s): 04/19/2023 4:28 PM INDICATION(s): M25.50: Pain in unspecified joint. COMPARISON(s): Bilateral foot radiographs dated 12/07/2011. FINDINGS/IMPRESSION: No acute fracture or dislocation is seen. No significant osteoarthritic degenerative changes are seen. The soft tissues are unremarkable. > Interpreting Provider: Natalee Ames MD on 04/19/2023 4:47 PM Dung Estevez MD DIAGNOSTIC IMAGING O RDERABLES * XR HAND BILAT 3VW OR MORE (04/19/2023 4:28 PM CDT) Only the most recent of2 resultswithin the time period is included. Anatomical Region Laterality Modality Upper Extremity, Wrist / Hand Ra diographic Imaging 04/19/2023 4:42 PM CDT Narrative 04/19/2023 4:43 PM CDT PROCEDURE(s): XR HAND BILAT 3VW OR MORE DATE AND TIME OF EXAM(s): 04/19/2023 4:28 PM INDICATION(s): M25.50: Pain in unspecified joint. COMPARISON(s): Bilateral hand radiographs dated 02/22/2018. FINDINGS/IMPRESSION: No acute fracture or dislocation is seen. No significant osteoarthritic degenerative changes are seen. The joint spaces appear preserved bilaterally. The soft tissues are unremarkable. > Interpreting Provider: Natalee Ames MD on 04/19/2023 4:43 PM Procedure Note Natalee Ames MD - 04/19/2023 PROCEDURE(s): XR HAND BILAT 3VW OR MORE DATE AND TIME OF EXAM(s): 04/19/2023 4:28 PM INDICATION(s): M25.50: Pain in unspecified joint. COMPARISON(s): Bilateral hand radiographs dated 02/22/2018. FINDINGS/IMPRESSION: No acute fracture or dislocation is seen. No significant osteoarthritic degenerative changes are seen. The joint spaces appear preserved bilaterally. The soft tissues are unremarkable. > Interpreting Provider: Natalee Ames MD on 04/19/2023 4:43 PM Dung Estevez MD DIAGNOSTIC IMAGING O RDERABLES * HEPATITIS SCREEN ACUTE ([facility]) (04/19/2023 4:01 [...] Resulting Agency Comment Lab Testing performed at: [facility] [address] [address] [facility] [address] [place] [phone] Dung Estevez MD LAB - CHEMISTRY ORDE RABMARILYNN Performing Organization Address City/[facility]/ZIP Co de Phone Number [facility] ACCOUNT BILL [address] [place] [address] * INTERPRETATION REFLEXED (04/19/2023 4:01 PM CDT) Interpretation [facility] ACCOUNT BILL Comment: Not infected with HCV unless early or acute infection is suspected (which may be delayed in an immunocompromised individual), or other evidence exists to indicate HCV infection. 04/19/2023 4:01 PM CDT 04/19/2023 Narrative Resulting Agency Comment Lab Testing performed at: [facility] [address] [phone] Dung Estevez MD LAB - SEROLOGY ORDER HOLA Performing Organization Address City/[facility]/ZIP Co de Phone Number [facility] ACCOUNT BILL [address] [place] [address] * CYCLIC CITRUL PEPTIDE ANTIBODY IGG/IGA ([facility]) (04/19/2023 3:56 PM CDT) Only the most recent of2 resultswithin the time period is included. CCP Antibodies IgG/IgA 2 0 - 19 units [facility] ACCOUNT BILL Comment: Negative <20 Weak positive 20 - 39 Moderate positive 40 - 59 Strong positive >59 Blood BLOOD SPECIMEN / Unknown 04/19/2023 3:56 PM CDT 04/19/2023 Narrative Resulting Agency Comment Lab Testing performed at: [facility] [address] [id number] Dung Estevez MD LAB - SEROLOGY ORDER HOLA Performing Organization Address City/[facility]/ZIP Co de Phone Number [facility] ACCOUNT BILL [address] [place] [address] * RHEUMATOID FACTOR BLOOD QUANTITATIVE (04/19/2023 3:56 PM CDT) Only the most recent of3 resultswithin the time period is included. Rheumatoid Factor <13 <30 IU/mL [facility] ACCOUNT BILL Blood BLOOD SPECIMEN / Unknown 04/19/2023 3:56 PM CDT 04/19/2023 Narrative Resulting Agency Comment Lab Testing performed at: [address] [place] [phone] Dung Estevez MD LAB - CHEMISTRY ORDE RABLES Performing Organization Address City/[facility]/ZIP Co de Phone Number [facility] ACCOUNT BILL [address] [place] [address] * PATITO BLOOD SCREEN W/REFLEX TITER (04/19/2023 3:56 PM CDT) Only the most recent of3 resultswithin the time period is included. PATITO Negative Negative [facility] ACCOUNT BILL Comment: Methodology: Indirect Immunofluorescence Assay (IFA) utilrosaenni ng Hep-2-Gamma cells. Blood BLOOD SPECIMEN / Unknown 04/19/2023 3:56 PM CDT 04/19/2023 Narrative Resulting Agency Comment Lab Testing performed at: [address] [place] [id number] Dung Estevez MD LAB - CHEMISTRY PAVEL BISWAS [facility] ACCOUNT BILL [address] [place] [address] * (ABNORMAL) VITAMIN D 25-HYDROXY (04/19/2023 3:56 PM CDT) Only the most recent of3 resultswithin the time period is included. Vitamin D, 25 Hydroxy 23.7(L) 30 - 80 ng/mL [facility] ACCOUNT BILL Comment: Vitamin D Status: Deficiency <20 ng/mL Insufficiency 20-30 ng/mL Sufficiency 30-100 ng/mL Toxicity >100 ng/mL Blood BLOOD SPECIMEN / Unknown 04/19/2023 3:56 PM CDT 04/19/2023 Narrative Resulting Agency Comment Lab Testing performed at: [facility] [id number] [place] [address] [facility] [id number] Dung Estevez MD LAB - CHEMISTRY PAVEL BISWAS Performing Organization Address [facility] Co de Phone Number [facility] ACCOUNT BILL [address] [place] [address] * ALDOLASE (04/19/2023 3:56 PM CDT) Aldolase 5.0 3.3 - 10.3 U/L [facility] ACCOUNT BILL Blood BLOOD SPECIMEN / Unknown 04/19/2023 3:56 PM CDT 04/19/2023 Narrative Resulting Agency Comment Lab Testing performed at: [facility] [address] [id number] Dung Estevez MD LAB - CHEMISTRY PAVEL BISWAS [facility] ACCOUNT BILL [address] [place] [address] * CK BLOOD (04/19/2023 3:56 PM CDT) Only the most recent of3 resultswithin the time period is included. CK 85 29 - 168 U/L [facility] ACCOUNT BILL Blood BLOOD SPECIMEN / Unknown 04/19/2023 3:56 PM CDT 04/19/2023 Narrative Resulting Agency Comment Lab Testing performed at: [address] [place] [id number] Dung Estevez MD LAB - CHEMISTRY PAVEL BISWAS [facility] ACCOUNT BILL [address] [place] [address] * TSH (04/19/2023 3:56 PM CDT) Only the most recent of3 resultswithin the time period is included. Pathologist [facility] TSH 1.4597 0.35 - 4.94 uIU/mL [facility] ACCOUNT BILL Blood BLOOD SPECIMEN / Unknown 04/19/2023 3:56 PM CDT 04/19/2023 Narrative Resulting Agency Comment Lab Testing performed at: [address] [place] [id number] Dung Estevez MD LAB - CHEMISTRY PAVEL BISWAS Performing Organization Address City/[facility]/ZIP Co de Phone Number [facility] ACCOUNT BILL [address] [place] [address] * (ABNORMAL) CBC W AUTO DIFFERENTIAL W/O PLATELETS (01/01/2021 12:27 PM CDT) Pathologist [facility] WBC 7.5 3.4 - 10.8 x10E3/uL [facility] INSURANCE BILL RBC 3.86 3.77 - 5.28 x10E6/uL [facility] INSURANCE BILL Hemoglobin 12.0 11.1 - 15.9 g/dL [facility] INSURANCE BILL Hematocrit 37.4 34.0 - 46.6 % [facility] INSURANCE BILL MCV 97 79 - 97 fL [facility] INSURANCE BILL MCH 31.1 26.6 - 33.0 pg [facility] INSURANCE BILL MCHC 32.1 31.5 - 35.7 g/dL [facility] INSURANCE BILL RDW 13.3 11.7 - 15.4 % [facility] INSURANCE BILL Granulocytes % 50 Not Estab. % [facility] INSURANCE BILL Lymphocytes % 43 Not Estab. % [facility] INSURANCE BILL Monocytes % 5 Not Estab. % [facility] INSURANCE BILL Eosinophils % 2 Not Estab. % [facility] INSURANCE BILL Basophils % 0 Not Estab. % [facility] INSURANCE BILL Immature Cells NOT NEEDED [facility] INSURANCE BILL Comment:Ancillary determined the test is not needed. Granulocytes Absolute 3.7 1.4 - 7.0 x10E3/uL [facility] INSURANCE BILL Lymphocytes Absolute 3.3(H) 0.7 - 3.1 x10E3/uL [facility] INSURANCE BILL Monocytes Absolute 0.3 0.1 - 0.9 x10E3/uL [facility] INSURANCE BILL Eosinophils Absolute 0.1 0.0 - 0.4 x10E3/uL [facility] INSURANCE BILL Basophils Absolute 0.0 0.0 - 0.2 x10E3/uL [facility] INSURANCE BILL Immature Granulocytes 0 Not Estab. % [facility] INSURANCE BILL Immature Granulocytes Absolute 0.0 0.0 - 0.1 x10E3/uL [facility] INSURANCE BILL nRBC NOT NEEDED [facility] INSURANCE BILL Comment:Ancillary determined the test is not needed. Comment Hematology NOT NEEDED [facility] INSURANCE BILL Comment:Ancillary determined the test is not needed. 01/01/2021 12:2 7 PM CDT 01/01/2021 Narrative Resulting Agency Comment Lab Testing performed at: [facility] [address] [id number] Tayo Garcia MD LAB - HEMATOLOGY O RDERABLES [facility] INSURANCE BILL [address] [place] [address] * HEPATITIS SCREEN ACUTE (01/01/2021 12:27 PM CDT) Hepatitis A Virus Antibody IgM Negative Negative [facility] INSURANCE BILL Hepatitis B Virus Surface Antigen Negative Negative [facility] INSURANCE BILL Hepatitis B Core Virus Antibody IgM Negative Negative [facility] INSURANCE BILL Hepatitis C Antibody <0.1 0.0 - 0.9 s/co ratio [facility] INSURANCE BILL Comment: Negative: < 0.8 Indeterminate: 0.8 - 0.9 Positive: > 0.9 . The CDC recommends that a positive HCV antibody result be followed up with a HCV Nucleic Acid Amplification test (513116). Blood BLOOD SPECIMEN / Unknown 01/01/2021 12:27 PM CDT 01/01/2021 Narrative Resulting Agency Comment Lab Testing performed at: [facility] [address] [id number] Tayo Garcia MD LAB - CHEMISTRY OR DERABLES [facility] [address] [place] [address] * QUANTIFERON-TB GOLD PLUS 4-TUBE (02/07/2020 1:39 PM CDT) Only the most recent of2 resultswithin the time period is included. [facility] QuantiFERON Criteria Comment 02/11/2020 5:06 PM CDT [facility] ([facility]) Comment: The QuantiFERON-TB Gold Plus result is determined by subtracting the Nil value from either TB antigen (Ag) tube. The mitogen tube serves as a control for the test. QuantiFERON TB1 Ag Value 0.05 IU/mL 02/11/2020 5:06 PM CDT [facility] ([facility]) QuantiFERON TB2 Ag Value 0.04 IU/mL 02/11/2020 5:06 PM CDT [facility] ([facility]) QuantiFERON Nil Value 0.05 IU/mL 02/11/2020 5:06 PM CDT [facility] ([facility]) QuantiFERON Mitogen Value >10.00 IU/mL 02/11/2020 5:06 PM CDT [facility] ([facility]) QuantiFERON-TB Gold Plus Negative Negative 02/11/2020 5:06 PM CDT [facility] ([facility]) Comment: The specimen received for QuantiFERON testing was incubated by the ordering institution. Specific procedures outlined in our Directory of Services and in the package insert for the QuantiFERON Gold (In Tube) test must be followed to enable for proper stimulation of cells for the production of interferon gamma. Blood BLOOD SPECIMEN / Unknown Venipuncture / Unknown 02/07/2020 1:39 PM CDT 02/07/2020 4:22 PM CDT Narrative [facility] ([facility]) - 02/11/2020 5:06 PM CDT Performed at: [facility] [address] [place], [place] [id number] Assembly Machine Operator: Chay Ocampo PhD, Phone: [phone] Tayo Garcia MD LAB - CHEMISTRY OR DERABLES Performing Organization Address City/[facility] Co de Phone Number [facility] [address] [place] [address] * HEMOGLOBIN A1C (HgbA1C) (08/31/2018 1:41 PM [employer]ER) Only the most recent of2 resultswithin the time period is included. Hemoglobin A1c 6.1 4.2 - 6.3 % [facility] INSURANCE BILL Comment:AVERAGE GLUCOSE MG/D L BLOOD 128 mg/dL Blood BLOOD SPECIMEN / Unknown 08/31/2018 1:41 PM [employer] 08/31/2018 Narrative Resulting Agency Comment [facility] [address] [facility] [phone] Tayo Garcia MD LAB - CHEMISTRY OR DERABLES Performing Organization Address [facility] Co de Phone Number [facility] INSURANCE BILL [address] [place] [address] * ANGIOTENSIN CONVERTING ENZYME BLOOD (08/31/2018 1:41 PM [employer]) Only the most recent of2 resultswithin the time period is included. Angiotensin-Con verting Enzyme 28 14 - 82 U/L [facility] INSURANCE BILL 08/31/2018 1:41 PM [employer]ER 08/31/2018 Narrative Resulting Agency Comment [facility] [address] [phone] Tayo Garcia MD LAB - CHEMISTRY OR DERABLES Performing Organization Address City/[facility] Co de Phone Number [facility] INSURANCE BILL [address] [place] [address] * XR HAND BILAT 2VW (02/22/2018 10:59 AM CDT) Anatomical Region Laterality Modality Wrist / Hand, Upper Extremity Ra diographic Imaging 02/22/2018 11:0 8 AM CDT Impressions 02/22/2018 11:09 AM CDT Normal joint spaces of both hands without erosion. Reading Radiologist: Delvin Spears MD on 02/22/2018 at 11:09 AM Narrative 02/22/2018 11:09 AM CDT Examination: Bilateral hands 2 views each History: Bilateral hand pain Findings: 2 views of each hand were performed with comparison made to 12/07/2011. Alignment of both hands is normal. Small well-corticated osseous fragments are noted adjacent to both ulnar styloid process likely representing sequela of prior injury. The joint spaces of both wrists appear normal. The metacarpophalangeal joint spaces are normal without erosion. Joint spaces of the fingers are normal. Procedure Note Delvin Spears MD - 02/22/2018 Examination: Bilateral hands 2 views each History: Bilateral hand pain Findings: 2 views of each hand were performed with comparison made to 12/07/2011. Alignment of both hands is normal. Small well-corticated osseous fragments are noted adjacent to both ulnar styloid process likely representing sequela of prior injury. The joint spaces of both wrists appear normal. The metacarpophalangeal joint spaces are normal without erosion. Joint spaces of the fingers are normal. IMPRESSION Normal joint spaces of both hands without erosion. Reading Radiologist: Delvin Spears MD on 02/22/2018 at 11:09 AM Tayo Garcia MD DIAGNOSTIC IMAGING ORDERABLES * HCV COMMENT (02/22/2018 10:31 AM CDT) Comment [facility] INSURANCE BILL Comment: Non reactive HCV antibody screen is consistent with no HCV infection, unless recent infection is suspected or other evidence exists to indicate HCV infection. FASTING 02/22/2018 10:3 1 AM CDT 02/22/2018 Narrative Resulting Agency Comment [facility] [address] [id number] Tayo Garcia MD LAB - CHEMISTRY OR DERABLES [facility] INSURANCE BILL [address] [place] [address] * HEPATITIS B + C PANEL (02/22/2018 10:31 AM CDT) Pathologist [facility] Hepatitis B Virus Surface Antigen Negative Negative [facility] INSURANCE BILL Hepatitis Be Antigen Negative Negative [facility] INSURANCE BILL Hepatitis B Core Virus Antibody IgM Negative Negative [facility] INSURANCE BILL Hepatitis B Core Virus Antibody Total Negative Negative [facility] INSURANCE BILL Hepatitis Be Antibody Negative Negative [facility] INSURANCE BILL Hepatitis B Virus Surface Antibody Non Reactive [facility] INSURANCE BILL Comment: Non Reactive: Inconsistent with immunity, less than 10 mIU/mL Reactive: Consistent with immunity, greater than 9.9 mIU/mL Hepatitis C Antibody <0.1 0.0 - 0.9 s/co ratio [facility] INSURANCE BILL Comment:FASTING Blood BLOOD SPECIMEN / Unknown 02/22/2018 10:31 AM CDT 02/22/2018 Narrative Resulting Agency Comment [facility] [address] [id number] Taoy Garcia MD LAB - SEROLOGY ORD ERABLES [facility] INSURANCE BILL [address] [place] [address] * QUANTIFERON IN TUBE REFLEXED (02/22/2018 10:31 AM CDT) [facility] QuantiFERON TB Gold Negative Negative [facility] INSURANCE BILL QuantiFERON Criteria [facility] INSURANCE BILL Comment: To be considered positive a specimen should have a TB Ag minus Nil value greater than or equal to 0.35 IU/mL and in addition the TB Ag minus Nil value must be greater than or equal to 25% of the Nil value. There may be insufficient information in these values to differentiate between some negative and some indeterminate test values. QuantiFERON TB Ag Value 0.28 IU/mL [facility] INSURANCE BILL QuantiFERON Nil Value 0.40 IU/mL [facility] INSURANCE BILL QuantiFERON Mitogen Value >10.00 IU/mL [facility] INSURANCE BILL QFT TB Ag Minus Nil Value IU/mL <0.00 IU/mL [facility] INSURANCE BILL Interpretation [facility] INSURANCE BILL Comment: The QuantiFERON TB Gold (in Tube) assay is intended for use as an aid in the diagnosis of TB infection. Negative results suggest that there is no TB infection. In patients with high suspicion of exposure, a negative test should be repeated. A positive test indicates infection with Mycobacterium tuberculosis. Among individuals without tuberculosis infection, a positive test may be due to exposure to M. kansasii, M. szulgai or M. marinum. On the Internet, go to cdc.gov/tb for further details. FASTING 02/22/2018 10:3 1 AM CDT 02/22/2018 Narrative Resulting Agency Comment [facility] [address] [id number] Tayo Garcia MD LAB - CHEMISTRY OR DERABLES Performing Organization Address [facility] Co de Phone Number [facility] [address] [place] [address] * HLA TYPING B27 (02/22/2018 10:31 AM CDT) HLA-B27 Negative [facility] INSURANCE BILL Comment: HLA-B*27 Negative B27 allele interpretation for all loci based on IMGT/HLA database version 3.27 This test was developed and its performance characteristics determined by [facility]. It has not been cleared or approved by the Food and Drug Administration. [facility] CLIA ID Number [id number] . This test was performed using PCR (Polymerase Chain Reaction)/SSOP (Sequence Specific Oligonucleotide Probes) technique. SBT (Sequence Based Typing) and/or SSP (Sequence Specific Primers) may be used as supplemental methods when necessary. Please contact [facility] Customer Service at if you have any questions. . Director of HLA Laboratory Dr Star Monte, PhD FASTING Blood BLOOD SPECIMEN / Unknown 02/22/2018 10:31 AM CDT 02/22/2018 Narrative Resulting Agency Comment [facility] [address] [facility] [id number] Tayo Garcia MD LAB - CHEMISTRY OR DERABLES Performing Organization Address City/[facility]/ZIP Co de Phone Number [facility] [address] [place] [address] * T4 TOTAL (05/10/2017 3:08 PM CDT) Pathologist [facility] T4 Total 6.3 4.9 - 11.7 mcg/dL [facility] Blood specimen (specimen) BLOOD SPECIMEN / Unknown 05/10/2017 3:08 PM CDT 05/10/2017 3:29 PM CDT Ahmet CHINCHILLA LAB - COMPOUND SPECIALIST RY ORDERABLES [address] [phone] * (ABNORMAL) VITAMIN B12 (05/10/2017 3:03 PM CDT) [facility] Vitamin B12 961(H) 213 - 816 pg/mL [facility] Blood specimen (specimen) BLOOD SPECIMEN / Unknown 05/10/2017 3:03 PM CDT 05/10/2017 3:30 PM CDT Michelle Castillo MD LAB - CHEMISTRY ORDYulia BISWAS [address] [phone] * BASIC METABOLIC PANEL (CALCIUM TOTAL) (12/28/2016 3:06 PM CDT) [facility] BUN 8 7 - 26 mg/dL [facility] Creatinine 0.9 0.6 - 1.2 mg/dL [facility] Sodium 139 136 - 145 mmol/L [facility] Potassium 4.1 3.5 - 4.5 mmol/L [facility] Chloride 105 98 - 107 mmol/L [facility] CO2 25 22 - 29 mmol/L [facility] Glucose 78 70 - 115 mg/dL [facility] Calcium 8.9 8.4 - 10.2 mg/dL [facility] Anion Gap 13 8 - 18 [facility] BUN/Creatinine Ratio 9 7 - 23 [facility] Osmolality Calculated 285 270 - 300 mOsm/kg [facility] eGFR >60 >60 mL/min/1.7 3 m2 [facility] Blood specimen (specimen) BLOOD SPECIMEN / Unknown 12/28/2016 3:06 PM CDT 12/28/2016 3:16 PM CDT Ko Ernandez MD LAB - CHEMISTRY PAVEL BISWAS Performing Organization Address [facility]/ZIP Co de Phone Number [address] [phone] * (ABNORMAL) URINALYSIS W/MICROSCOPIC NO CULTURE (12/28/2016 1:52 PM CDT) Only the most recent of3 resultswithin the time period is included. Color UA Yellow Straw, Yellow, Colorless, Light Yellow [facility] Clarity UA Clear Clear [facility] Specific Table Rock UA 1.006 1.001 - 1.030 [facility] pH UA 6.5 5.0 - 8.0 [facility] Protein UA Negative <=20 mg/dL [facility] Glucose UA Negative Negative mg/dL [facility] Ketone UA Negative Negative mg/dL [facility] Bilirubin UA Negative Negative mg/dL [facility] Blood UA Negative Negative [facility] Nitrite UA Negative Negative [facility] Leukocyte Esterase Trace(A) Negative [facility] Urobilinogen UA <2.0 <2.0 mg/dL [facility] RBC UA 2 0 - 8 /HPF [facility] WBC UA 5(H) 0 - 2 /HPF [facility] Bacteria UA Many(A) Rare, Occasional, None /HPF [facility] Squamous Epithelial Cells UA 3(H) 0 - 1 /HPF [facility] Mucus UA Rare(A) None /LPF [facility] Urine specimen (specimen) 12/28/2016 1:52 PM CDT 12/28/2016 2:09 PM CDT Ko Ernandez MD LAB - URINALYSIS ORD MAGDY [address] [phone] * XR ELBOW RIGHT 3VW OR MORE (10/08/2016 11:28 AM [employer]) Anatomical Region Laterality Modality Upper Extremity Other Impressions 10/08/2016 12:04 PM [employer]ER IMPRESSION: No displaced fracture. If there is continued clinical concern for fracture CT or MRI could be performed. Report dictated by Ankit Evans M.D. (resident). Dr. LB Henao MD have personally reviewed and interpreted this examination/study. This report was electronically signed by LB SHAHID MD on 10/08/2016 12:04 PM . Narrative 10/08/2016 12:04 PM [employer] EXAMINATION: XR ELBOW RIGHT 3+ VW DATE: 10/08/2016 11:28 AM HISTORY: Pain, reported right elbow fracture COMPARISON: No prior study is available for comparison. FINDINGS: A splint is present obscuring the soft tissue and osseous detail. No acute fracture or dislocation is identified. The joint spaces are normal. No joint effusion is identified. Bone mineralization is normal. Procedure Note Lb Shahid MD - 10/28/2017 EXAMINATION: XR ELBOW RIGHT 3+ VW DATE: 10/08/2016 11:28 AM HISTORY: Pain, reported right elbow fracture COMPARISON: No prior study is available for comparison. FINDINGS: A splint is present obscuring the soft tissue and osseous detail. No acutefracture or dislocation is identified. The joint spaces are normal. Nojoint effusion is identified. Bone mineralization is normal. IMPRESSION IMPRESSION: No displaced fracture. If there is continued clinical concern for fractureCT or MRI could be performed. Report dictated by Aknit Evans M.D. (resident). Dr. LB Henao MD have personally reviewed and interpreted thisexamination/study. This report was electronically signed by LB SHAHID MD on 10/08/201612:04 PM . 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 Report dictated by Ankit Evans M.D. (resident). Dr. LB Henao MD have personally reviewed and interpreted this examination/study. This report was electronically signed by LB SHAHID MD on 09/30/2016 3:59 PM . Narrative 09/30/2016 3:59 PM [employer]ER EXAMINATION: XR KNEE RIGHT 4+ VW DATE: 09/30/2016 3:05 PM HISTORY: right knee pain COMPARISON: Right knee radiographs dated 08/24/2016. FINDINGS: No acute fracture or dislocation is identified. There is mild medial compartment joint space narrowing. Small tricompartmental osteophytes are seen. There are no erosive changes. No joint effusion is identified. Bone mineralization is normal. The soft tissues are normal. Procedure Note Lb Shahid MD - 10/28/2017 EXAMINATION: XR KNEE RIGHT 4+ VW DATE: 09/30/2016 3:05 PM HISTORY: right knee pain COMPARISON: Right knee radiographs dated 08/24/2016. FINDINGS: No acute fracture or dislocation is identified. There is mild medialcompartment joint space narrowing. Small tricompartmental osteophytes areseen. There are no erosive changes. No joint effusion is identified. Bonemineralization is normal. The soft tissues are normal. 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 Report dictated by Ankit Evans M.D. (resident). Dr. LB Henao MD have personally reviewed and interpreted thisexamination/study. This report was electronically signed by LB SHAHID MD on 09/30/20163:59 PM . Malia Gottlieb PA-C DIAGNOSTIC IMAG ING ORDERABLES * XR PELVIS W RIGHT HIP 2VW (09/30/2016 3:03 PM [employer]) Only the most recent of2 resultswithin the time period is included. Anatomical Region Laterality Modality Other Impressions 09/30/2016 3:59 PM [employer] IMPRESSION: Minimal degenerative change without joint space narrowing, not progressed. If there is clinical concern for a radiographically occult abnormality such as nondisplaced fracture or avascular necrosis, MRI would be recommended as follow-up. Report dictated by Ankit Evans M.D. (resident). IDr. LB MD have personally reviewed and interpreted this examination/study. This report was electronically signed by LB SHAHID MD on 09/30/2016 3:59 PM . Narrative 09/30/2016 3:59 PM [employer] EXAMINATION: 2 views of the right hip including frontal and frog-leg lateral. No pelvic radiograph is submitted. DATE: 09/30/2016 3:04 PM HISTORY: right hip pain COMPARISON: Right hip radiographs dated 08/24/2016 FINDINGS: No right hip fracture or dislocation is identified. There is minimal degenerative changes without joint space narrowing. No erosions are identified. Bone mineralization is normal. The soft tissues are normal. Surgical clips are seen over the right abdomen and pelvis. Procedure Note Lb Shahid MD - 10/28/2017 EXAMINATION: 2 views of the right hip including frontal and frog-leglateral. No pelvic radiograph is submitted. DATE: 09/30/2016 3:04 PM HISTORY: right hip pain COMPARISON: Right hip radiographs dated 08/24/2016 FINDINGS: No right hip fracture or dislocation is identified. There is minimaldegenerative changes without joint space narrowing. No erosions areidentified. Bone mineralization is normal. The soft tissues are normal.Surgical clips are seen over the right abdomen and pelvis. IMPRESSION IMPRESSION: Minimal degenerative change without joint space narrowing, not progressed.If there is clinical concern for a radiographically occult abnormalitysuch as nondisplaced fracture or avascular necrosis, MRI would berecommended as follow-up. Report dictated by Ankit Evans M.D. (resident). Dr. LB Henao MD have personally reviewed and interpreted thisexamination/study. This report was electronically signed by LB SHAHID MD on 09/30/20163:59 PM . Malia Gottlieb PA-C DIAGNOSTIC IMAG ING ORDERABLES * LIPID PROFILE - POINT OF CARE (AMB) [facility] (09/23/2016) Only the most recent of2 resultswithin the time period is included. Ishaan Leo PA-C LAB - POINT OF CARE ORDERABLES [facility] * HEMOGLOBIN A1C - POINT OF CARE (AMB) [facility] (09/23/2016) Hemoglobin A1c POCT 5.9 [facility] Capillary blood specimen (specimen) 09/23/2016 Ishaan Leo PA-C LAB - POINT OF CARE ORDERABLES [facility] * QUANTIFERON TB-GOLD INC (08/24/2016 1:21 PM [employer]) Only the most recent of2 resultswithin the time period is included. QuantiFERON TB Gold Negative Negative [facility] (BEAKER) Comment: The specimen received for QuantiFERON testing was incubated by the ordering institution. Specific procedures outlined in our Directory of Services and in the package insert for the QuantiFERON Gold (In Tube) test must be followed to enable for proper stimulation of cells for the production of interferon gamma. QuantiFERON Criteria Comment [facility] (BEAKER) Comment: To be considered positive a specimen should have a TB Ag minus Nil value greater than or equal to 0.35 IU/mL and in addition the TB Ag minus Nil value must be greater than or equal to 25% of the Nil value. There may be insufficient information in these values to differentiate between some negative and some indeterminate test values. QuantiFERON TB Antigen Value 0.20 IU/mL [facility] (BEAKER) QuantiFERON Nil Value 0.20 IU/mL [facility] (BEAKER) QuantiFERON Mitogen Value >10.00 IU/mL [facility] (BEAKER) QFT TB Ag minus Nil Value 0.00 IU/mL [facility] (BEAKER) Interpretation Comment [facility] Comment: The QuantiFERON TB Gold (in Tube) assay is intended for use as an aid in the diagnosis of TB infection. Negative results suggest that there is no TB infection. In patients with high suspicion of exposure, a negative test should be repeated. A positive test indicates infection with Mycobacterium tuberculosis. Among individuals without tuberculosis infection, a positive test may be due to exposure to M. kansasii, M. szulgai or M. marinum. On the Internet, go to cdc.gov/tb for further details. Blood specimen (specimen) BLOOD SPECIMEN / Unknown 08/24/2016 1:21 PM [employer] 08/24/2016 1:36 PM [employer] Narrative [facility] ([facility]) - 08/27/2016 1:11 PM [employer] Performed at: - [facility] [address] [id number] Assembly Machine Operator: Chay Ocampo PhD, Phone: [phone] Berenice Robins MD LAB - SEROLOGY PAVEL BISWAS [facility] DM[facility] [place]) * XR KNEE RIGHT 3VW (08/24/2016 1:12 PM [employer]) Anatomical Region Laterality Modality Lower Extremity Other Impressions 08/24/2016 5:15 PM [employer] IMPRESSION: 1. Bilateral hip radiographs demonstrate minimal degenerative change without joint space narrowing. 2. Sacroiliac joint radiographs demonstrate no arthritis. 3. Bilateral knee radiographs demonstrate mild osteoarthritis. This report was electronically signed by LB SHAHID MD on 08/24/2016 5:15 PM . Narrative 08/24/2016 5:15 PM [employer] Exam: 1. XR HIP RIGHT 2-3 VW W/ PELVIS, 2. XR SACROILIAC JOINTS < 3 VW, 3. XR KNEE LEFT 3 VW, 4. XR KNEE RIGHT 3 VW, 5. XR HIP LEFT 2-3 VW History: Hip pain Comparison: None. Findings: Right hip with pelvis: No acute fracture or dislocation is seen. There is minimal degenerative change without joint space narrowing. There are no erosions. Bone density is normal. The pelvic radiograph demonstrates no displaced fracture. Surgical clips project over the right side of the pelvis. Left hip: No acute fracture or dislocation is seen. There is mild degenerative change characterized by small osteophyte formation without joint space narrowing. No erosions are seen. Bone density is normal. Sacroiliac joints: There is no erosion, widening, sclerosis, narrowing, or ankylosis of either sacroiliac joint. No fracture is seen. Bone density is normal. Right knee: No acute fracture or dislocation is seen. There is mild medial compartment joint space narrowing. There a small tricompartmental osteophytes. There are no erosions. No effusion is seen. Bone density is normal. Left knee: No acute fracture or dislocation is present. There is mild medial compartment narrowing. Small tricompartmental osteophytes are noted. An inferior patellar fragment enthesophyte is noted. No effusion is seen. Bone density is normal. Procedure Note Lb Shahid MD - 10/28/2017 Exam: 1. XR HIP RIGHT 2-3 VW W/ PELVIS, 2. XR SACROILIAC JOINTS < 3 VW, 3. XR KNEE LEFT 3 VW, 4. XR KNEE RIGHT 3 VW, 5. XR HIP LEFT 2-3 VW History: Hip pain Comparison: None. Findings: Right hip with pelvis: No acute fracture or dislocation is seen. There is minimal degenerativechange without joint space narrowing. There are no erosions. Bone densityis normal. The pelvic radiograph demonstrates no displaced fracture.Surgical clips project over the right side of the pelvis. Left hip: No acute fracture or dislocation is seen. There is mild degenerativechange characterized by small osteophyte formation without joint spacenarrowing. No erosions are seen. Bone density is normal. Sacroiliac joints: There is no erosion, widening, sclerosis, narrowing, or ankylosis ofeither sacroiliac joint. No fracture is seen. Bone density is normal. Right knee: No acute fracture or dislocation is seen. There is mild medial compartmentjoint space narrowing. There a small tricompartmental osteophytes. Thereare no erosions. No effusion is seen. Bone density is normal. Left knee: No acute fracture or dislocation is present. There is mild medialcompartment narrowing. Small tricompartmental osteophytes are noted. Aninferior patellar fragment enthesophyte is noted. No effusion is seen.Bone density is normal. IMPRESSION IMPRESSION: 1. Bilateral hip radiographs demonstrate minimal degenerative changewithout joint space narrowing. 2. Sacroiliac joint radiographs demonstrate no arthritis. 3. Bilateral knee radiographs demonstrate mild osteoarthritis. This report was electronically signed by LB SHAHID MD on 08/24/20165:15 PM . Berenice Robins MD DIAGNOSTIC IMAGING ORDERABLES * XR KNEE LEFT 3VW (08/24/2016 1:12 PM [employer]) Anatomical Region Laterality Modality Lower Extremity Other Impressions 08/24/2016 5:15 PM [employer] IMPRESSION: 1. Bilateral hip radiographs demonstrate minimal degenerative change without joint space narrowing. 2. Sacroiliac joint radiographs demonstrate no arthritis. 3. Bilateral knee radiographs demonstrate mild osteoarthritis. This report was electronically signed by LB SHAHID MD on 08/24/2016 5:15 PM . Narrative 08/24/2016 5:15 PM [employer] Exam: 1. XR HIP RIGHT 2-3 VW W/ PELVIS, 2. XR SACROILIAC JOINTS < 3 VW, 3. XR KNEE LEFT 3 VW, 4. XR KNEE RIGHT 3 VW, 5. XR HIP LEFT 2-3 VW History: Hip pain Comparison: None. Findings: Right hip with pelvis: No acute fracture or dislocation is seen. There is minimal degenerative change without joint space narrowing. There are no erosions. Bone density is normal. The pelvic radiograph demonstrates no displaced fracture. Surgical clips project over the right side of the pelvis. Left hip: No acute fracture or dislocation is seen. There is mild degenerative change characterized by small osteophyte formation without joint space narrowing. No erosions are seen. Bone density is normal. Sacroiliac joints: There is no erosion, widening, sclerosis, narrowing, or ankylosis of either sacroiliac joint. No fracture is seen. Bone density is normal. Right knee: No acute fracture or dislocation is seen. There is mild medial compartment joint space narrowing. There a small tricompartmental osteophytes. There are no erosions. No effusion is seen. Bone density is normal. Left knee: No acute fracture or dislocation is present. There is mild medial compartment narrowing. Small tricompartmental osteophytes are noted. An inferior patellar fragment enthesophyte is noted. No effusion is seen. Bone density is normal. Procedure Note Lb Shahid MD - 10/28/2017 Exam: 1. XR HIP RIGHT 2-3 VW W/ PELVIS, 2. XR SACROILIAC JOINTS < 3 VW, 3. XR KNEE LEFT 3 VW, 4. XR KNEE RIGHT 3 VW, 5. XR HIP LEFT 2-3 VW History: Hip pain Comparison: None. Findings: Right hip with pelvis: No acute fracture or dislocation is seen. There is minimal degenerativechange without joint space narrowing. There are no erosions. Bone densityis normal. The pelvic radiograph demonstrates no displaced fracture.Surgical clips project over the right side of the pelvis. Left hip: No acute fracture or dislocation is seen. There is mild degenerativechange characterized by small osteophyte formation without joint spacenarrowing. No erosions are seen. Bone density is normal. Sacroiliac joints: There is no erosion, widening, sclerosis, narrowing, or ankylosis ofeither sacroiliac joint. No fracture is seen. Bone density is normal. Right knee: No acute fracture or dislocation is seen. There is mild medial compartmentjoint space narrowing. There a small tricompartmental osteophytes. Thereare no erosions. No effusion is seen. Bone density is normal. Left knee: No acute fracture or dislocation is present. There is mild medialcompartment narrowing. Small tricompartmental osteophytes are noted. Aninferior patellar fragment enthesophyte is noted. No effusion is seen.Bone density is normal. IMPRESSION IMPRESSION: 1. Bilateral hip radiographs demonstrate minimal degenerative changewithout joint space narrowing. 2. Sacroiliac joint radiographs demonstrate no arthritis. 3. Bilateral knee radiographs demonstrate mild osteoarthritis. This report was electronically signed by LB SHAHID MD on 08/24/20165:15 PM . Berenice Robins MD DIAGNOSTIC IMAGING ORDERABLES * XR HIP LEFT 2VW OR MORE (08/24/2016 1:12 PM [employer]) Anatomical Region Laterality Modality Pelvis, Lower Extremity Other Impressions 08/24/2016 5:15 PM [employer] IMPRESSION: 1. Bilateral hip radiographs demonstrate minimal degenerative change without joint space narrowing. 2. Sacroiliac joint radiographs demonstrate no arthritis. 3. Bilateral knee radiographs demonstrate mild osteoarthritis. This report was electronically signed by LB SHAHID MD on 08/24/2016 5:15 PM . Narrative 08/24/2016 5:15 PM [employer] Exam: 1. XR HIP RIGHT 2-3 VW W/ PELVIS, 2. XR SACROILIAC JOINTS < 3 VW, 3. XR KNEE LEFT 3 VW, 4. XR KNEE RIGHT 3 VW, 5. XR HIP LEFT 2-3 VW History: Hip pain Comparison: None. Findings: Right hip with pelvis: No acute fracture or dislocation is seen. There is minimal degenerative change without joint space narrowing. There are no erosions. Bone density is normal. The pelvic radiograph demonstrates no displaced fracture. Surgical clips project over the right side of the pelvis. Left hip: No acute fracture or dislocation is seen. There is mild degenerative change characterized by small osteophyte formation without joint space narrowing. No erosions are seen. Bone density is normal. Sacroiliac joints: There is no erosion, widening, sclerosis, narrowing, or ankylosis of either sacroiliac joint. No fracture is seen. Bone density is normal. Right knee: No acute fracture or dislocation is seen. There is mild medial compartment joint space narrowing. There a small tricompartmental osteophytes. There are no erosions. No effusion is seen. Bone density is normal. Left knee: No acute fracture or dislocation is present. There is mild medial compartment narrowing. Small tricompartmental osteophytes are noted. An inferior patellar fragment enthesophyte is noted. No effusion is seen. Bone density is normal. Procedure Note Lb Shahid MD - 10/28/2017 Exam: 1. XR HIP RIGHT 2-3 VW W/ PELVIS, 2. XR SACROILIAC JOINTS < 3 VW, 3. XR KNEE LEFT 3 VW, 4. XR KNEE RIGHT 3 VW, 5. XR HIP LEFT 2-3 VW History: Hip pain Comparison: None. Findings: Right hip with pelvis: No acute fracture or dislocation is seen. There is minimal degenerativechange without joint space narrowing. There are no erosions. Bone densityis normal. The pelvic radiograph demonstrates no displaced fracture.Surgical clips project over the right side of the pelvis. Left hip: No acute fracture or dislocation is seen. There is mild degenerativechange characterized by small osteophyte formation without joint spacenarrowing. No erosions are seen. Bone density is normal. Sacroiliac joints: There is no erosion, widening, sclerosis, narrowing, or ankylosis ofeither sacroiliac joint. No fracture is seen. Bone density is normal. Right knee: No acute fracture or dislocation is seen. There is mild medial compartmentjoint space narrowing. There a small tricompartmental osteophytes. Thereare no erosions. No effusion is seen. Bone density is normal. Left knee: No acute fracture or dislocation is present. There is mild medialcompartment narrowing. Small tricompartmental osteophytes are noted. Aninferior patellar fragment enthesophyte is noted. No effusion is seen.Bone density is normal. IMPRESSION IMPRESSION: 1. Bilateral hip radiographs demonstrate minimal degenerative changewithout joint space narrowing. 2. Sacroiliac joint radiographs demonstrate no arthritis. 3. Bilateral knee radiographs demonstrate mild osteoarthritis. This report was electronically signed by LB SHAHID MD on 08/24/20165:15 PM . Berenice Robins MD DIAGNOSTIC IMAGING ORDERABLES * XR SI JOINTS 2VW OR LESS (08/24/2016 1:12 PM [employer]) Anatomical Region Laterality Modality Pelvis, Lower Extremity Other Impressions 08/24/2016 5:15 PM [employer] IMPRESSION: 1. Bilateral hip radiographs demonstrate minimal degenerative change without joint space narrowing. 2. Sacroiliac joint radiographs demonstrate no arthritis. 3. Bilateral knee radiographs demonstrate mild osteoarthritis. This report was electronically signed by LB SHAHID MD on 08/24/2016 5:15 PM . Narrative 08/24/2016 5:15 PM [employer] Exam: 1. XR HIP RIGHT 2-3 VW W/ PELVIS, 2. XR SACROILIAC JOINTS < 3 VW, 3. XR KNEE LEFT 3 VW, 4. XR KNEE RIGHT 3 VW, 5. XR HIP LEFT 2-3 VW History: Hip pain Comparison: None. Findings: Right hip with pelvis: No acute fracture or dislocation is seen. There is minimal degenerative change without joint space narrowing. There are no erosions. Bone density is normal. The pelvic radiograph demonstrates no displaced fracture. Surgical clips project over the right side of the pelvis. Left hip: No acute fracture or dislocation is seen. There is mild degenerative change characterized by small osteophyte formation without joint space narrowing. No erosions are seen. Bone density is normal. Sacroiliac joints: There is no erosion, widening, sclerosis, narrowing, or ankylosis of either sacroiliac joint. No fracture is seen. Bone density is normal. Right knee: No acute fracture or dislocation is seen. There is mild medial compartment joint space narrowing. There a small tricompartmental osteophytes. There are no erosions. No effusion is seen. Bone density is normal. Left knee: No acute fracture or dislocation is present. There is mild medial compartment narrowing. Small tricompartmental osteophytes are noted. An inferior patellar fragment enthesophyte is noted. No effusion is seen. Bone density is normal. Procedure Note Lb Shahid MD - 10/28/2017 Exam: 1. XR HIP RIGHT 2-3 VW W/ PELVIS, 2. XR SACROILIAC JOINTS < 3 VW, 3. XR KNEE LEFT 3 VW, 4. XR KNEE RIGHT 3 VW, 5. XR HIP LEFT 2-3 VW History: Hip pain Comparison: None. Findings: Right hip with pelvis: No acute fracture or dislocation is seen. There is minimal degenerativechange without joint space narrowing. There are no erosions. Bone densityis normal. The pelvic radiograph demonstrates no displaced fracture.Surgical clips project over the right side of the pelvis. Left hip: No acute fracture or dislocation is seen. There is mild degenerativechange characterized by small osteophyte formation without joint spacenarrowing. No erosions are seen. Bone density is normal. Sacroiliac joints: There is no erosion, widening, sclerosis, narrowing, or ankylosis ofeither sacroiliac joint. No fracture is seen. Bone density is normal. Right knee: No acute fracture or dislocation is seen. There is mild medial compartmentjoint space narrowing. There a small tricompartmental osteophytes. Thereare no erosions. No effusion is seen. Bone density is normal. Left knee: No acute fracture or dislocation is present. There is mild medialcompartment narrowing. Small tricompartmental osteophytes are noted. Aninferior patellar fragment enthesophyte is noted. No effusion is seen.Bone density is normal. IMPRESSION IMPRESSION: 1. Bilateral hip radiographs demonstrate minimal degenerative changewithout joint space narrowing. 2. Sacroiliac joint radiographs demonstrate no arthritis. 3. Bilateral knee radiographs demonstrate mild osteoarthritis. This report was electronically signed by LB SHAHID MD on 08/24/20165:15 PM . Berenice Robins MD DIAGNOSTIC IMAGING ORDERABLES * URINALYSIS MICROSCOPIC ONLY REFLEXED (04/20/2016 3:58 PM CDT) Only the most recent of2 resultswithin the time period is included. WBC, UA 0-5 0 - 5 /hpf [facility] ([facility]AKER) RBC UA 0-2 0 - 2 /hpf [facility] ([facility]AKER) Epithelial Cells (non renal) 0-10 0 - 10 /hpf [facility] ([facility]) Mucus UA Present Not Estab. [facility] ([facility]AK[facility]) Bacteria UA None seen None seen/Few [facility] ([facility]) 04/20/2016 3:58 PM CDT 04/20/2016 5:46 PM CDT Narrative [facility] ([facility]) - 04/21/2016 7:14 AM CDT Performed at: [address] [place] [id number] Assembly Machine Operator: Chay Ocampo PhD, Phone: [phone] Specimen Comment: A courtesy copy of this report has been sent to Specimen Comment: [phone]. Berenice Robins MD LAB - URINALYSIS OR DERABLES [facility] ([facility]) * URINALYSIS W/MICROSCOPIC REFLEX TO CULTURE (04/20/2016 3:58 PM CDT) Only the most recent of2 resultswithin the time period is included. Pathologist [facility] Specific [place] 1.023 1.005 - 1.030 [facility] ([facility]AKER) pH Urine 5.5 5.0 - 7.5 [facility] ([facility]) Color UA Yellow Yellow [facility] ([facility]) Appearance Clear Clear [facility] ([facility]) Leukocyte Esterase Negative Negative [facility] ([facility]) Protein UA Negative Negative/Tra ce [facility] ([facility]) Glucose UA Negative Negative [facility] (BEAK[facility]) Ketone UA Negative Negative [facility] ([facility]) Blood UA Negative Negative [facility] ([facility]) Bilirubin Negative Negative [facility] ([facility]) Urobilinogen Semi-Qn 0.2 0.2 - 1.0 mg/dL [facility] ([facility]) Nitrite UA Negative Negative [facility] (BEAKER) Microscopic Examination [facility] Comment:Microscopic follows if indicated. Microscopic Examination See below: [facility] ([facility]) Comment:Microscopic was sabi cated and was performed. Urinalysis Reflex [facility] Comment:This specimen will n ot reflex to a Urine Culture. Urine specimen (specimen) 04/20/2016 3:58 PM CDT 04/20/2016 5:46 PM CDT Narrative [facility] ([facility]) - 04/21/2016 7:14 AM CDT Specimen Type->Urine Performed at: - [facility] [id number] Assembly Machine Operator: Chay Ocampo PhD, Phone: [phone] Specimen Comment: A courtesy copy of this report has been sent to Specimen Comment: [phone]. Berenice Robins MD LAB - URINALYSIS OR DERABLES [facility] ([facility]) * XR FOOT RIGHT 3VW OR MORE (05/27/2015 1:44 PM CDT) Anatomical Region Laterality Modality Ankle / Foot Other Impressions 05/27/2015 8:32 PM CDT Impression: 1. Minimal nonspecific degenerative changes in the hands, and mild degenerative changes in the feet, likely reflecting early osteoarthritis. Report dictated by Lilliam Espinosa M.D. (vice president of advertising). I, Dr. LB SHAHID MD have personally reviewed and interpreted this examination/study. This report was electronically signed by LB SHAHID MD on 05/27/2015 8:32 PM . Narrative 05/27/2015 8:32 PM CDT Exam: 1. XR HAND RIGHT 3+ VW 2. XR HAND LEFT 3+ VW 3. XR FOOT RIGHT 3+ VW 4. XR FOOT LEFT 3+ VW Date: 05/27/2015 1:44 PM History: Joint pains. Diagnosed with rheumatoid arthritis 6 years ago. Comparison: No prior study is available for comparison. Findings: Right hand: No acute fracture or dislocation is identified. Joint spaces are normal. There are scattered tiny osteophytes at several joints including the second and fourth metacarpophalangeal joints and second distal interphalangeal joint. No erosions are seen. Osseous architecture and density and normal. An os triangulare is present. Left hand: No acute fracture or dislocation is identified. Joint spaces are normal. There are scattered tiny osteophytes including at the second third metacarpophalangeal joints and first carpometacarpal joint. No erosions are seen. Osseous architecture and density are normal. An os triangulare is present Right foot: No acute fracture or dislocation is identified. Joint spaces are normal. Small osteophytes are seen at the first metatarsophalangeal joint with mild sclerosis. Spurring is seen at the tarsal navicular bone. A posterior calcaneal enthesophyte is present. Left foot: No acute fracture or dislocation is identified. Joint spaces are normal. Small osteophytes are seen at the first metatarsophalangeal joint. Small tibiotalar osteophytes are noted. A posterior calcaneal enthesophyte is present. Procedure Note Lb Shahid MD - 10/29/2017 Exam: 1. XR HAND RIGHT 3+ VW 2. XR HAND LEFT 3+ VW 3. XR FOOT RIGHT 3+ VW 4. XR FOOT LEFT 3+ VW Date: 05/27/2015 1:44 PM History: Joint pains. Diagnosed with rheumatoid arthritis 6 years ago. Comparison: No prior study is available for comparison. Findings: Right hand: No acute fracture or dislocation is identified. Joint spaces are normal.There are scattered tiny osteophytes at several joints including thesecond and fourth metacarpophalangeal joints and second distalinterphalangeal joint. No erosions are seen. Osseous architecture and density and normal. An os triangulare ispresent. Left hand: No acute fracture or dislocation is identified. Joint spaces are normal.There are scattered tiny osteophytes including at the second thirdmetacarpophalangeal joints and first carpometacarpal joint. No erosionsare seen. Osseous architecture and density are normal. An os triangulare is present Right foot: No acute fracture or dislocation is identified. Joint spaces are normal.Small osteophytes are seen at the first metatarsophalangeal joint withmild sclerosis. Spurring is seen at the tarsal navicular bone. A posteriorcalcaneal enthesophyte is present. Left foot: No acute fracture or dislocation is identified. Joint spaces are normal.Small osteophytes are seen at the first metatarsophalangeal joint. Smalltibiotalar osteophytes are noted. A posterior calcaneal enthesophyte ispresent. IMPRESSION Impression: 1. Minimal nonspecific degenerative changes in the hands, and milddegenerative changes in the feet, likely reflecting earlyosteoarthritis. Report dictated by Lilliam Espinosa M.D. (vice president of advertising). Dr. LB Henao MD have personally reviewed and interpreted thisexamination/study. This report was electronically signed by LB SHAHID MD on05/27/2015 8:32 PM . Berenice Robins MD DIAGNOSTIC IMAGING ORDERABLES * XR FOOT LEFT 3VW OR MORE (05/27/2015 1:44 PM CDT) Anatomical Region Laterality Modality Ankle / Foot Other Impressions 05/27/2015 8:32 PM CDT Impression: 1. Minimal nonspecific degenerative changes in the hands, and mild degenerative changes in the feet, likely reflecting early osteoarthritis. Report dictated by Lilliam Espinosa M.D. (vice president of advertising). Dr. LB Henao MD have personally reviewed and interpreted this examination/study. This report was electronically signed by LB SHAHID MD on 05/27/2015 8:32 PM . Narrative 05/27/2015 8:32 PM CDT Exam: 1. XR HAND RIGHT 3+ VW 2. XR HAND LEFT 3+ VW 3. XR FOOT RIGHT 3+ VW 4. XR FOOT LEFT 3+ VW Date: 05/27/2015 1:44 PM History: Joint pains. Diagnosed with rheumatoid arthritis 6 years ago. Comparison: No prior study is available for comparison. Findings: Right hand: No acute fracture or dislocation is identified. Joint spaces are normal. There are scattered tiny osteophytes at several joints including the second and fourth metacarpophalangeal joints and second distal interphalangeal joint. No erosions are seen. Osseous architecture and density and normal. An os triangulare is present. Left hand: No acute fracture or dislocation is identified. Joint spaces are normal. There are scattered tiny osteophytes including at the second third metacarpophalangeal joints and first carpometacarpal joint. No erosions are seen. Osseous architecture and density are normal. An os triangulare is present Right foot: No acute fracture or dislocation is identified. Joint spaces are normal. Small osteophytes are seen at the first metatarsophalangeal joint with mild sclerosis. Spurring is seen at the tarsal navicular bone. A posterior calcaneal enthesophyte is present. Left foot: No acute fracture or dislocation is identified. Joint spaces are normal. Small osteophytes are seen at the first metatarsophalangeal joint. Small tibiotalar osteophytes are noted. A posterior calcaneal enthesophyte is present. Procedure Note Lb Shahid MD - 10/29/2017 Exam: 1. XR HAND RIGHT 3+ VW 2. XR HAND LEFT 3+ VW 3. XR FOOT RIGHT 3+ VW 4. XR FOOT LEFT 3+ VW Date: 05/27/2015 1:44 PM History: Joint pains. Diagnosed with rheumatoid arthritis 6 years ago. Comparison: No prior study is available for comparison. Findings: Right hand: No acute fracture or dislocation is identified. Joint spaces are normal.There are scattered tiny osteophytes at several joints including thesecond and fourth metacarpophalangeal joints and second distalinterphalangeal joint. No erosions are seen. Osseous architecture and density and normal. An os triangulare ispresent. Left hand: No acute fracture or dislocation is identified. Joint spaces are normal.There are scattered tiny osteophytes including at the second thirdmetacarpophalangeal joints and first carpometacarpal joint. No erosionsare seen. Osseous architecture and density are normal. An os triangulare is present Right foot: No acute fracture or dislocation is identified. Joint spaces are normal.Small osteophytes are seen at the first metatarsophalangeal joint withmild sclerosis. Spurring is seen at the tarsal navicular bone. A posteriorcalcaneal enthesophyte is present. Left foot: No acute fracture or dislocation is identified. Joint spaces are normal.Small osteophytes are seen at the first metatarsophalangeal joint. Smalltibiotalar osteophytes are noted. A posterior calcaneal enthesophyte ispresent. IMPRESSION Impression: 1. Minimal nonspecific degenerative changes in the hands, and milddegenerative changes in the feet, likely reflecting earlyosteoarthritis. Report dictated by Lilliam Espinosa M.D. (vice president of advertising). Dr. LB Henao MD have personally reviewed and interpreted thisexamination/study. This report was electronically signed by LB SHAHID MD on05/27/2015 8:32 PM . Berenice Robins MD DIAGNOSTIC IMAGING ORDERABLES * XR HAND RIGHT 3VW OR MORE (05/27/2015 1:44 PM CDT) Anatomical Region Laterality Modality Wrist / Hand Other Impressions 05/27/2015 8:32 PM CDT Impression: 1. Minimal nonspecific degenerative changes in the hands, and mild degenerative changes in the feet, likely reflecting early osteoarthritis. Report dictated by Lilliam Espinosa M.D. (vice president of advertising). Dr. LB Henao MD have personally reviewed and interpreted this examination/study. This report was electronically signed by LB SHAHID MD on 05/27/2015 8:32 PM . Narrative 05/27/2015 8:32 PM CDT Exam: 1. XR HAND RIGHT 3+ VW 2. XR HAND LEFT 3+ VW 3. XR FOOT RIGHT 3+ VW 4. XR FOOT LEFT 3+ VW Date: 05/27/2015 1:44 PM History: Joint pains. Diagnosed with rheumatoid arthritis 6 years ago. Comparison: No prior study is available for comparison. Findings: Right hand: No acute fracture or dislocation is identified. Joint spaces are normal. There are scattered tiny osteophytes at several joints including the second and fourth metacarpophalangeal joints and second distal interphalangeal joint. No erosions are seen. Osseous architecture and density and normal. An os triangulare is present. Left hand: No acute fracture or dislocation is identified. Joint spaces are normal. There are scattered tiny osteophytes including at the second third metacarpophalangeal joints and first carpometacarpal joint. No erosions are seen. Osseous architecture and density are normal. An os triangulare is present Right foot: No acute fracture or dislocation is identified. Joint spaces are normal. Small osteophytes are seen at the first metatarsophalangeal joint with mild sclerosis. Spurring is seen at the tarsal navicular bone. A posterior calcaneal enthesophyte is present. Left foot: No acute fracture or dislocation is identified. Joint spaces are normal. Small osteophytes are seen at the first metatarsophalangeal joint. Small tibiotalar osteophytes are noted. A posterior calcaneal enthesophyte is present. Procedure Note Lb Shahid MD - 10/29/2017 Exam: 1. XR HAND RIGHT 3+ VW 2. XR HAND LEFT 3+ VW 3. XR FOOT RIGHT 3+ VW 4. XR FOOT LEFT 3+ VW Date: 05/27/2015 1:44 PM History: Joint pains. Diagnosed with rheumatoid arthritis 6 years ago. Comparison: No prior study is available for comparison. Findings: Right hand: No acute fracture or dislocation is identified. Joint spaces are normal.There are scattered tiny osteophytes at several joints including thesecond and fourth metacarpophalangeal joints and second distalinterphalangeal joint. No erosions are seen. Osseous architecture and density and normal. An os triangulare ispresent. Left hand: No acute fracture or dislocation is identified. Joint spaces are normal.There are scattered tiny osteophytes including at the second thirdmetacarpophalangeal joints and first carpometacarpal joint. No erosionsare seen. Osseous architecture and density are normal. An os triangulare is present Right foot: No acute fracture or dislocation is identified. Joint spaces are normal.Small osteophytes are seen at the first metatarsophalangeal joint withmild sclerosis. Spurring is seen at the tarsal navicular bone. A posteriorcalcaneal enthesophyte is present. Left foot: No acute fracture or dislocation is identified. Joint spaces are normal.Small osteophytes are seen at the first metatarsophalangeal joint. Smalltibiotalar osteophytes are noted. A posterior calcaneal enthesophyte ispresent. IMPRESSION Impression: 1. Minimal nonspecific degenerative changes in the hands, and milddegenerative changes in the feet, likely reflecting earlyosteoarthritis. Report dictated by Lilliam Espinosa M.D. (vice president of advertising). Dr. LB Henao MD have personally reviewed and interpreted thisexamination/study. This report was electronically signed by LB SHAHID MD on05/27/2015 8:32 PM . Berenice Robins MD DIAGNOSTIC IMAGING ORDERABLES * XR HAND LEFT 3VW OR MORE (05/27/2015 1:44 PM CDT) Anatomical Region Laterality Modality Wrist / Hand Other Impressions 05/27/2015 8:32 PM CDT Impression: 1. Minimal nonspecific degenerative changes in the hands, and mild degenerative changes in the feet, likely reflecting early osteoarthritis. Report dictated by Lilliam Espinosa M.D. (vice president of advertising). Dr. LB Henao MD have personally reviewed and interpreted this examination/study. This report was electronically signed by LB SHAHID MD on 05/27/2015 8:32 PM . Narrative 05/27/2015 8:32 PM CDT Exam: 1. XR HAND RIGHT 3+ VW 2. XR HAND LEFT 3+ VW 3. XR FOOT RIGHT 3+ VW 4. XR FOOT LEFT 3+ VW Date: 05/27/2015 1:44 PM History: Joint pains. Diagnosed with rheumatoid arthritis 6 years ago. Comparison: No prior study is available for comparison. Findings: Right hand: No acute fracture or dislocation is identified. Joint spaces are normal. There are scattered tiny osteophytes at several joints including the second and fourth metacarpophalangeal joints and second distal interphalangeal joint. No erosions are seen. Osseous architecture and density and normal. An os triangulare is present. Left hand: No acute fracture or dislocation is identified. Joint spaces are normal. There are scattered tiny osteophytes including at the second third metacarpophalangeal joints and first carpometacarpal joint. No erosions are seen. Osseous architecture and density are normal. An os triangulare is present Right foot: No acute fracture or dislocation is identified. Joint spaces are normal. Small osteophytes are seen at the first metatarsophalangeal joint with mild sclerosis. Spurring is seen at the tarsal navicular bone. A posterior calcaneal enthesophyte is present. Left foot: No acute fracture or dislocation is identified. Joint spaces are normal. Small osteophytes are seen at the first metatarsophalangeal joint. Small tibiotalar osteophytes are noted. A posterior calcaneal enthesophyte is present. Procedure Note Lb Shahid MD - 10/29/2017 Exam: 1. XR HAND RIGHT 3+ VW 2. XR HAND LEFT 3+ VW 3. XR FOOT RIGHT 3+ VW 4. XR FOOT LEFT 3+ VW Date: 05/27/2015 1:44 PM History: Joint pains. Diagnosed with rheumatoid arthritis 6 years ago. Comparison: No prior study is available for comparison. Findings: Right hand: No acute fracture or dislocation is identified. Joint spaces are normal.There are scattered tiny osteophytes at several joints including thesecond and fourth metacarpophalangeal joints and second distalinterphalangeal joint. No erosions are seen. Osseous architecture and density and normal. An os triangulare ispresent. Left hand: No acute fracture or dislocation is identified. Joint spaces are normal.There are scattered tiny osteophytes including at the second thirdmetacarpophalangeal joints and first carpometacarpal joint. No erosionsare seen. Osseous architecture and density are normal. An os triangulare is present Right foot: No acute fracture or dislocation is identified. Joint spaces are normal.Small osteophytes are seen at the first metatarsophalangeal joint withmild sclerosis. Spurring is seen at the tarsal navicular bone. A posteriorcalcaneal enthesophyte is present. Left foot: No acute fracture or dislocation is identified. Joint spaces are normal.Small osteophytes are seen at the first metatarsophalangeal joint. Smalltibiotalar osteophytes are noted. A posterior calcaneal enthesophyte ispresent. IMPRESSION Impression: 1. Minimal nonspecific degenerative changes in the hands, and milddegenerative changes in the feet, likely reflecting earlyosteoarthritis. Report dictated by Lilliam Espinosa M.D. (vice president of advertising). I, Dr. LB SHAHID MD have personally reviewed and interpreted thisexamination/study. This report was electronically signed by LB SHAHID MD on05/27/2015 8:32 PM . Berenice Robins MD DIAGNOSTIC IMAGING ORDERABLES * VILLALOBOS (SM) ANTIBODY АНДРЕЙ (05/27/2015 1:36 PM CDT) Villalobos Antibody 1.8 0.0 - 19.9 Units [facility] Comment: АНДРЕЙ Antibody Numeric Result Interpretation: <20.0 Units: Negative 20.0 - 39.0 Units: Weakly Positive >39.0 Units: Positive Blood specimen (specimen) BLOOD SPECIMEN / Unknown 05/27/2015 1:36 PM CDT 05/27/2015 2:34 PM CDT Berenice Robins MD LAB - CHEMISTRY ORD ERABLES [address] [phone] * POTATO SEED CUTTER ANTIBODY (05/27/2015 1:36 PM CDT) SM/POTATO SEED CUTTER Antibody 1.2 0.0 - 19.9 Units [facility] Comment: АНДРЕЙ Antibody Numeric Result Interpretation: <20.0 Units: Negative 20.0 - 39.0 Units: Weakly Positive >39.0 Units: Positive Blood specimen (specimen) BLOOD SPECIMEN / Unknown 05/27/2015 1:36 PM CDT 05/27/2015 2:34 PM CDT Berenice Robins MD LAB - CHEMISTRY ORD ERABLES [address] [phone] * HISTONE ANTIBODY (05/27/2015 1:36 PM CDT) Anti-Histone Antibody 0.2 0.0 - 0.9 Units [facility] ([facility]) Comment: Negative <1.0 Weak Positive 1.0 - 1.5 Moderate Positive 1.6 - 2.5 Strong Positive >2.5 Blood specimen (specimen) BLOOD SPECIMEN / Unknown 05/27/2015 1:36 PM CDT 05/27/2015 2:34 PM CDT Narrative [facility] ([facility]) - 05/29/2015 1:19 PM CDT Performed at: - [address] [id number] Assembly Machine Operator: Bulmaro Mojica MD, Phone: [phone] Berenice Robins MD LAB - CHEMISTRY ORD ERABLES [facility] ([facility]) * COMPLEMENT TOTAL (05/27/2015 1:36 PM CDT) Pathologist [facility] Complement Total CH50 59 42 - 62 U/mL [facility] ([facility]) Blood specimen (specimen) BLOOD SPECIMEN / Unknown 05/27/2015 1:36 PM CDT 05/27/2015 2:34 PM CDT Narrative [facility] ([facility]) - 05/28/2015 3:23 PM CDT Performed at: [address] [id number] Assembly Machine Operator: Chay Ocampo PhD, Phone: [phone] Berenice Robins MD LAB - CHEMISTRY ORD ERABLES Performing Organization Address City/[facility]/ZIP Co de Phone Number [facility] ([facility]) * SS-B (SJOGRENS'S) ANTIBODY (05/27/2015 1:36 PM CDT) Pathologist [facility] SS-B LA Antibody 1.3 0.0 - 19.9 Units [facility] Comment: АНДРЕЙ Antibody Numeric Result Interpretation: <20.0 Units: Negative 20.0 - 39.0 Units: Weakly Positive >39.0 Units: Positive Blood specimen (specimen) BLOOD SPECIMEN / Unknown 05/27/2015 1:36 PM CDT 05/27/2015 2:34 PM CDT Berenice Robins MD LAB - CHEMISTRY ORD ERABLES [address] [phone] * SS-A (SJOGREN'S) ANTIBODY (05/27/2015 1:36 PM CDT) SS-A (Ro) Antibody 1.1 0.0 - 19.9 Units [facility] Comment: АНДРЕЙ Antibody Numeric Result Interpretation: <20.0 Units: Negative 20.0 - 39.0 Units: Weakly Positive >39.0 Units: Positive Blood specimen (specimen) BLOOD SPECIMEN / Unknown 05/27/2015 1:36 PM CDT 05/27/2015 2:34 PM CDT Berenice Robins MD LAB - CHEMISTRY ORD ERABLES Performing Organization Address City/[facility]/ZIP Co de Phone Number [address] [phone] * SCLERODERMA 70 (SCL) ANTIBODY (05/27/2015 1:36 PM CDT) SCL-70 Antibody 3.7 0.0 - 19.9 Units [facility] Comment: АНДРЕЙ Antibody Numeric Result Interpretation: <20.0 Units: Negative 20.0 - 39.0 Units: Weakly Positive >39.0 Units: Positive Blood specimen (specimen) BLOOD SPECIMEN / Unknown 05/27/2015 1:36 PM CDT 05/27/2015 2:34 PM CDT Berenice Robins MD LAB - CHEMISTRY ORD ERABLES Performing Organization Address City/[facility]/ZIP Co de Phone Number [address] [phone] * DNA ANTIBODY DOUBLE STRANDED (05/27/2015 1:36 PM CDT) dsDNA Antibody 0 0 - 29 IU/mL [facility] Comment: dsDNA Antibody Numeric Result Interpretation: 0 - 29 IU/mL: Negative 30 - 75 IU/mL: Borderline >75 IU/mL: Positive Blood specimen (specimen) BLOOD SPECIMEN / Unknown 05/27/2015 1:36 PM CDT 05/27/2015 2:34 PM CDT Berenice Robins MD LAB - HEMATOLOGY OR DERABLES Performing Organization Address [facility] Co de Phone Number [address] [phone] * CYCLIC CITRUL PEPTIDE AB IGG (CCP) (05/27/2015 1:36 PM CDT) CCP Antibody IgG <0.5 <5.0 U/mL [facility] Blood specimen (specimen) BLOOD SPECIMEN / Unknown 05/27/2015 1:36 PM CDT 05/27/2015 2:34 PM CDT Berenice Robins MD LAB - CHEMISTRY ORD ERABLES Performing Organization Address [facility] Co de Phone Number [address] [phone] * COMPLEMENT C4 (05/27/2015 1:36 PM CDT) Complement C4 43 15 - 57 mg/dL [facility] Blood specimen (specimen) BLOOD SPECIMEN / Unknown 05/27/2015 1:36 PM CDT 05/27/2015 2:34 PM CDT Berenice Robins MD LAB - SEROLOGY ORDE ZULAY Performing Organization Address [facility] Co de Phone Number [address] [phone] * HEPATITIS B SURFACE ANTIGEN W RFLX CONFIRMATION (05/27/2015 1:36 PM CDT) Hepatitis B Virus Surface Antigen Non-reacti ve Non-reacti ve [facility] Blood specimen (specimen) BLOOD SPECIMEN / Unknown 05/27/2015 1:36 PM CDT 05/27/2015 2:34 PM CDT Berenice Robins MD LAB - CHEMISTRY ORD ERABLES Performing Organization Address [facility] Co de Phone Number [address] [phone] * T4 FREE (05/27/2015 1:36 PM CDT) Pathologist [facility] T4 Free 0.9 0.7 - 1.5 ng/dL [facility] Blood specimen (specimen) BLOOD SPECIMEN / Unknown 05/27/2015 1:36 PM CDT 05/27/2015 2:34 PM CDT Berenice Robins MD LAB - CHEMISTRY ORD ERABLES Performing Organization Address City/[facility]/ZIP Co de Phone Number [address] [phone] * HEPATITIS C ANTIBODY (05/27/2015 1:36 PM CDT) [facility] Hepatitis C Antibody Non-react sascha Non-reac tive [facility] Comment: Hepatitis C Antibody screen indicates no serologic evidence of past or current infection with Hepatitis C Virus. Patients with unexplained liver disease who are immunocompromised or suspected of having acute Hepatitis C infection may benefit from Nucleic Acid Test (ALEX) for Hepatitis C Viral RNA to confirm Hepatitis C status. Blood specimen (specimen) BLOOD SPECIMEN / Unknown 05/27/2015 1:36 PM CDT 05/27/2015 2:34 PM CDT Berenice Robins MD LAB - CHEMISTRY ORD ERABLES Performing Organization Address [facility] Co de Phone Number [address] [phone] * COMPLEMENT C3 (05/27/2015 1:36 PM CDT) [facility] Complement C3 168 82 - 193 mg/dL [facility] Blood specimen (specimen) BLOOD SPECIMEN / Unknown 05/27/2015 1:36 PM CDT 05/27/2015 2:34 PM CDT Berenice Robins MD LAB - CHEMISTRY ORD ERABLES Performing Organization Address [facility]/ZIP Co de Phone Number [address] [phone] * XR KNEE BILAT ONE OR TWO VIEWS (12/07/2011 1:43 PM CDT) Anatomical Region Laterality Modality Lower Extremity Radiographic Desi ging 12/07/2011 5:11 PM CDT Impressions 12/07/2011 5:11 PM CDT No radiographic evidence of active rheumatoid arthritis. Please see Findings section for description of additional incidental findings. Narrative 12/07/2011 5:11 PM CDT Four x-rays of the bilateral knees Six x-rays of the bilateral feet Six x-rays of the bilateral hands COMPARISON: No relevant available comparison. HISTORY: Rheumatoid arthritis FINDINGS: Right hand: Normal mineralization. No periarticular osteopenia. No evidence of erosion or significant soft tissue swelling. Small ossific fragment adjacent to the ulnar styloid likely congenital or related to remote trauma. No active inflammatory process appreciated. Left hand: No generalized or periarticular osteopenia. No soft tissue swelling or bony erosion or bony lysis. No fracture. Right knee: Obesity. Normal bone mineralization. Minor marginal osteophytes but no evidence of erosion. No fracture. No significant effusion. Left knee: Obesity. Normal bone mineralization. Minor marginal osteophytes but no evidence of erosion. No fracture. No significant effusion. Left foot: Borderline flattening of the calcaneal arch. Mild calcaneal spurring. No ankle effusion. Normal bone mineralization. No fracture or malalignment. No soft tissue swelling. Right foot: Flat calcaneal arch. No ankle effusion. No fracture, malalignment or generalized or focal osteopenia. No soft tissue swelling. This unified report represents interpretation of multiple exams / accession numbers. See sections above. Procedure Note Nigel Nguyen MD - 12/07/2011 Four x-rays of the bilateral knees Six x-rays of the bilateral feet Six x-rays of the bilateral hands COMPARISON: No relevant available comparison. HISTORY: Rheumatoid arthritis FINDINGS: Right hand: Normal mineralization. No periarticular osteopenia. No evidence of erosion or significant soft tissue swelling. Small ossific fragment adjacent to the ulnar styloid likely congenital or related to remote trauma. No active inflammatory process appreciated. Left hand: No generalized or periarticular osteopenia. No soft tissue swelling or bony erosion or bony lysis. No fracture. Right knee: Obesity. Normal bone mineralization. Minor marginal osteophytes but no evidence of erosion. No fracture. No significant effusion. Left knee: Obesity. Normal bone mineralization. Minor marginal osteophytes but no evidence of erosion. No fracture. No significant effusion. Left foot: Borderline flattening of the calcaneal arch. Mild calcaneal spurring. No ankle effusion. Normal bone mineralization. No fracture or malalignment. No soft tissue swelling. Right foot: Flat calcaneal arch. No ankle effusion. No fracture, malalignment or generalized or focal osteopenia. No soft tissue swelling. This unified report represents interpretation of multiple exams / accession numbers. See sections above. IMPRESSION No radiographic evidence of active rheumatoid arthritis. Please see Findings section for description of additional incidental findings. Juanjose Vick MD DIAGNOSTIC IMAGING O [facility] Care Teams Filer Helper Relationship Specialty Start Date End Date Andrea Calles MD 1 [facility] [place] [address] PCP - General Family Medicine 04/19/23 [place] [address] [place] [phone] Rheumatology 04/19/23
--- OUTSIDE RECORDS SUMMARY | 2024-09-12 13:15 | XMS_ITS | Clinical Summary ---
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 Gender Identity Not on file Sexual Orientation Not on file Occupation Industry Job Start Date Job End Date disabled Not on file Not on file Not on file Obstetrics History Last Filed Vital Signs Vital Sign Reading [...] 11/17/2018 11:26 AM CDT Plan of Treatment Health Maintenance Due Date Last Done Comments Breast Cancer Screening-Mammogram 1971 Cervical Cancer Screening 1971 Colon Cancer Screening-Colonoscopy 1971 Hepatitis C Screening 1971 Pneumococcal vaccine <65 (1 of 2 - PCV) 1977 Hepatitis B Screening 1989 Regular Well Visit/Exam 18-64 1989 Zoster Vaccine (1 of 2) 1990 Depression Screening 01/26/2018 01/26/2017 Covid-19 Vaccine (3 - season) 04/01/202401/2021, 11/08/2020 Influenza Vaccine (#1) 2024 7, 04/29/2014, 05/10/2013 DTaP/Tdap/Td Vaccine (3 - Td or Tdap) 09/12/202507/2016, 11/24/2012 Insurance MEDICARE SOLUTIONS MEDICARE SOLUTIONS [place] [id number] Care Teams Nc Machinist Relationship Specialty Start Date End Date Andrea Calles MD PCP - General Family Medicine 08/17/23
--- OUTSIDE RECORDS SUMMARY | 2024-09-12 13:15 | XMS_ITS | Encounter Summary ---
Author Organization [facility] Health Address [address] [place] [address] Care Team Providers Care Tilting Saw Operator Name Role Phone Vianey Shukla MD Primary Care Provider Unavailabl e Andrea Calles MD Primary Care Provider [phone] Dung Estevez MD Unavailable Encounter Details Date Type Department Care Team (Late st Contact Info) Description 06/11/2021 [facility] Outpatient Visit [facility] [address] [place] [address] Document, Scanned Social History Tobacco Use Types Packs/Day Years Used Date Smoking Tobacco: Former Smokeless Tobacco: Never Alcohol Use Standard Drinks/Week Comments Yes 0 (1 standard drink = 0.6 oz pur e alcohol) Social occasional use Sex and Gender Information Value Date Recorded Sex Assigned at Not on file Gender Identity Not on file Sexual Orientation Not on file documented as of this encounter Plan of Treatment Not on file documented as of this encounter Visit Diagnoses Not on filedocumented in this encounter Care Teams Tilting Saw Operator Relationship Specialty Start Date End Date Vianey Shukal MD PCP - General Internal Medicine 07/10/19 04/18/23 Andrea Calles MD 1 [place] [address] PCP - General Family Medicine 04/19/23 [place] [address] [place] [phone] Rheumatology 04/19/23 documented as of this encounter
--- OUTSIDE RECORDS SUMMARY | 2024-09-12 13:15 | XMS_ITS ---
Author Organization [facility] Address [address] [place], [place] [id number] Care Team Providers Care President & Ceo Name Role Phone ISSA MONTGOMERY Unavailable [phone] Ishaan Marquez Unavailable Unavailable MARGO GUERRA Unavailable [phone] REASON FOR VISIT MRI RESULTS Encounters Encounter Location Date Provider Diagnosis [facility] [address] [facility] [address] [place], [place] [id number] 05/06/2023 MARGO GUERRA Plan Of Treatment No Information Progress Notes * MELODIE PARKER DDOB:[birth year] (54 yo F)Acc No.[id number]:05/06/2023 Patient: Les MELODIE DUMONT Provider: Leslie GUERRA :1970 A ge:53 Y S ex:Female Date:05/06/2023 Address:[address] [place], [place] [id number] Subjective: * Chief Complaints: * 1 . MRI RESULTS. * Medical History: Objective: * Vitals: Assessment: Plan: * Treatment: * Billing Information: * Visit Code: * Procedure Codes: * Electronic signature of LESLEY GUERRA DPM on 09/12/2024 at 01:15 PM HELMET BINDER Sign off status: Pending * Provider: Leslie GUERRA Date: 1 Generated for Ernestine quiñones/Franco/Delvin on: 0 09/12/2024 01:15 PM HELMET BINDER
--- NOTE | 2024-09-12 13:25 | PC.NURSE ---
Pt sitting in lobby with shirt pulled up and rubbing her abdomen. Pt frequently asking when she is going to get pain medication. ER process explained to pt.
--- NOTE | 2024-09-12 13:40 | PC.NURSE ---
Patient to desk requesting they speak with Shot Packer. Patient demanding additional pain medication (patient given 4mg morphine by EMS CRANE CREW SUPERVISOR) and a room in the back. Patient informed this RN would follow chain of command and call patient intake coordinator. Patient verbalized being ok with this RN contacting patient intake coordinator. patient intake coordinator arrives to speak with patient. Patient began yelling at patient intake coordinator, Graciela - demanding a room in the back and additional pain meds. Graciela unable to deescalate situation with therapeutic communication and explanation of our process. Patient continually raising voice and uncooperative while becoming irate. This RN called security for assistance with patient and situation. Patient began to scream at patient intake coordinator. ED Director, Nicole, out to lobby at this time. Selina MCKEON also called at 1339 d/t potential threat to safety of staff and dept. Patient yelling, if anybody touches me. They will leave here with a black eye and missing teeth . Patient stormed out of ED with steady gait yelling, nobody better fucking touch me and I don't give a fuck if I have this IV in, nobody is going to touch me to take it out. Patient informed PD had been called. Patient states, I don't give a fuck about no police you bitch . Selina MCKEON dispatch called back and informed patient had left building with security following. Selina MCKEON arrived to parking lot while security is standing with her
--- NOTE | 2024-09-12 13:50 | PC.NURSE ---
This RN went to waiting room to speak with patient. She realized I was a bowling ball patcher and immediately started yelling and screaming at me to get out of her face before she knocks me out. She requested to speak with Explosives Worker, I informed her that she is a very busy person and it could be a while before she came down. Pt continued to speak over my explaining of processes in the ER. Pt kept standing up and down and rubbing her abdomen with her shirt up and waving her hands at the waiting room. Pt was screaming that nobody here is more sick than me or hurt more than me Attempted to explain the ER process again - she stood up and leaned in my face and told me to get out of her face and to move on. Nicole Motta, director of ER came out to speak with patient. I then went around the waiting room to update the rest of the WR.
--- OUTSIDE RECORDS SUMMARY | 2024-09-12 14:02 | XMS_ITS | Encounter Summary ---
Author Organization [facility] Health Address [address] [place] [address] Care Team Providers Care Automotive Tire Testing Supervisor Name Role Phone Vianey Shukla MD Primary Care Provider Unavailabl e Andrea Calles MD Primary Care Provider [phone] Dung Estevez MD Unavailable Encounter Details Date Type Department Care Team (Late st Contact Info) Description 06/11/2021 [facility] Outpatient Visit [facility] [address] [place] [address] Document, Scanned Social History Tobacco Use Types [...] on filedocumented in this encounter Care Teams Automotive Tire Testing Supervisor Relationship Specialty Start Date End Date Vianey Shukla MD PCP - General Internal Medicine 07/10/19 04/18/23 Andrea Calles MD [address] [place] [address] PCP - General Family Medicine 04/19/23 [place] [address] [place] [phone] Rheumatology 04/19/23 documented as of this encounter
--- OUTSIDE RECORDS SUMMARY | 2024-09-12 14:02 | XMS_ITS | Referral Summary ---
Author Organization [facility] Address [address] [place] [address] Care Team Providers Care Senior Test Analyst Name Role Phone Andrea Calles MD Primary [...] on file Legal Sex Female 3:40 AM MUSIC ASSISTANT Gender Identity Not on file Sexual Orientation [...] Treatment Not on file Insurance MEDICARE SOLUTIONS MEDICARE SOLUTIONS Member Subscriber Plan / Payer (Ef fective 2017-Present) Name:Lyudmila Jade Kalia Relation to Subscriber:Self Name:Lyudmila Jade Kalia Payer ID:[id number] (NAIC) Type:UHC MEDICARE Address: [place] [phone] Care Teams Senior Test Analyst Relationship Specialty Start Date End Date Andrea Calles MD PCP - General Family Medicine 08/17/23
--- OUTSIDE RECORDS SUMMARY | 2024-09-12 14:02 | XMS_ITS | Encounter Summary ---
Author Organization [facility] Address [address] [place] [address] Care Team Providers Care Polymerization Oven Operator Name Role Phone Andrea Calles MD Primary Care Provider [phone] Dung Estevez MD Unavailable Encounter Details Date Type Department Care Team (Late st Contact Info) Description 08/31/2023 Lab Requisition [facility] - DermPath Lab [address] [facility] [place] [phone] Suhail Beth MD [facility] DERMATOLOGY [address] [place] [phone] Neoplasm of uncertain behavior of skin [...] Comments DERMATOPATHOLOGY Routine 08/31/2023 12:0 0 AM DROP HAMMER OPERATOR HELPER Neoplasm of uncertain behavior of skin documented in this encounter Results * DERMATOPATHOLOGY (08/31/2023 12:00 AM DROP HAMMER OPERATOR HELPER) Case Report Dermatopathology Report Case: [id number] Authorizing Provider: Suhail Beth MD Collected: 08/31/2023 12:00 AM Ordering Location: [facility] DermPath Lab Received: 09/02/2023 09:40 AM Pathologist: Carol Angela MD Specimen: Skin, rigth 3rd finger 4:39 PM [facility] DERMATOPATHOLOGY LABORATORY Final Diagnosis Specimen A. 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 Other 4:39 PM [facility] DERMATOPATHOLOGY LABORATORY Gross Description Specimen A: Received is one formalin filled container labeled with the patient's name and designated rigth 3rd finger. The specimen consists of a shave biopsy measuring 5x5x1, 3x3x1, 2x1x1, 7x3x1, 7x4x1, 8x6x1, 9x5x1, 9x6x2 mm. Jar 0+. 4:39 PM [facility] DERMATOPATHOLOGY LABORATORY Microscopic Description Specimen A. SKIN, rigth 3rd finger: The specimen consisted mostly of stratum corneum with retained nuclei. There is no cellular epidermis present for evaluation. COMMENT: This type of stratum corneum is frequently seen overlying squamous proliferations such as actinic keratoses or squamous cell carcinomas; however, a wart or clavus are other diagnostic possibilities. 4:39 PM [facility] DERMATOPATHOLOGY LABORATORY Disclaimer An external and internal positive and negative controls are appropriate for the histochemical, immunohistochemical and immunofluorescence stain(s) in this case (if any), except where stated explicitly. The performance characteristics of the stain(s) cited in this report were developed and its performance characteristic determined by the Dermatopathology Laboratory at [facility], directed by Dr. Yasmin Ritchie. These tests need not be, and therefore are not, approved by the [place] Food and Drug Administration. The tests are used for clinical purposes. Billing Codes Specimen Charges Stain Charges 83848 1 4 4:39 PM DROP HAMMER OPERATOR HELPER DERMATOPATHOLOGY LABORATORY Embedded Images 4 4:39 PM DROP HAMMER OPERATOR HELPER DERMATOPATHOLOGY LABORATORY Pathology/Cytolog y TISSUE SPECIMEN FROM SKIN / Unknown 08/31/2023 09/02/2023 9:40 AM DROP HAMMER OPERATOR HELPER Suhail Beth MD LAB - PATHOLOGY/CYTO LOGY ORDERABLES DERMATOPATHOLOGY LABORATORY [facility] - Department of Dermatology [facility] [address] [place] [address], [address] [phone] documented in this encounter Visit Diagnoses Diagnosis Neoplasm of uncertain behavior of skin documented in this encounter Care Teams Polymerization Oven Operator Relationship Specialty Start Date End Date Andrea Calles MD 1 [facility] [place] [phone] PCP - General Family Medicine 04/19/23 [place] [address] [place] [phone] Rheumatology 04/19/23 documented as of this encounter
--- OUTSIDE RECORDS SUMMARY | 2024-09-12 14:02 | XMS_ITS | Clinical Summary ---
Author Organization [facility] Address [address] [place] [address] Care Team Providers Care Vessel Scrapper Name Role Phone Unavailable Primary Care Provider [...] STL ABSTRACTION Provider, Abstract 07/20/2024 9:56 AM TREASURY MANAGEMENT SALES CONSULTANT - 07/20/2024 11:59 PM TREASURY MANAGEMENT SALES CONSULTANT Hospital Encounter [facility] [address] [place] [phone] Lb Woo MD Discharge Disposition: Home or Self Care 07/20/2024 9:55 AM TREASURY MANAGEMENT SALES CONSULTANT - 07/20/2024 11:59 PM TREASURY MANAGEMENT SALES CONSULTANT Hospital Encounter [facility] [place] [id number] [place] [phone] Lb Woo MD Discharge Disposition: Home or Self Care 07/20/2024 9:30 AM TREASURY MANAGEMENT SALES CONSULTANT Office Visit [facility] - [address] [place] [address] Lb Woo MD Chronic pain of right [...] 98.4 kg (217 lb) 07/20/2024 9:50 AM TREASURY MANAGEMENT SALES CONSULTANT Height 167.6 cm (5' 6 ) 07/20/2024 9:50 AM TREASURY MANAGEMENT SALES CONSULTANT Body Mass Index 35.02 07/20/2024 9:50 AM TREASURY MANAGEMENT SALES CONSULTANT Plan of Treatment Health Maintenance Due Date [...] Vaccine ( season) 04/01/202401/2021, 11/08/2020 [place] Prev entative Visit/Annual Wellness Visit 08/01/2024 BREAST CANCER SCREENING 03/22/2025 03/22/2024 DTAP/TDAP/TD VACCINES (2 - T d or Tdap) 09/12/2025 09/12/2015 Procedures Procedure Name Priority Date/Time Associated Diagnosis Comments XR HIP 2 OR 3 VIEWS RT Routine 07/20/2024 10:15 AM TREASURY MANAGEMENT SALES CONSULTANT Right hip pain XR KNEE 4+ VW RIGHT Routine 07/20/2024 1 0:15 AM TREASURY MANAGEMENT SALES CONSULTANT Chronic pain of right knee from Last 3 Months Results * XR HIP 2 OR 3 VIEWS RT (07/20/2024 10:15 AM TREASURY MANAGEMENT SALES CONSULTANT) Anatomical Region Laterality Modality Lower Extremity Right Computed Radiogr aphy 07/20/2024 10:1 5 AM TREASURY MANAGEMENT SALES CONSULTANT Impressions 07/20/2024 12:01 PM TREASURY MANAGEMENT SALES CONSULTANT IMPRESSION: 1. No acute fracture or dislocation identified. DICTATION LOCATION: Location [address] [place] [address] Narrative 07/20/2024 12:01 PM TREASURY MANAGEMENT SALES CONSULTANT EXAMINATION: XR HIP 2 OR 3 VIEWS [...] acute fracture or dislocation identified. DICTATION LOCATION: [address] [place] Lb Woo MD DIAGNOSTIC IMAGING ORDERABLES Final Result * XR KNEE 4+ VW RIGHT (07/20/2024 10:15 AM TREASURY MANAGEMENT SALES CONSULTANT) Anatomical Region Laterality Modality Lower Extremity Computed Radiogr aphy 07/20/2024 10:1 5 AM TREASURY MANAGEMENT SALES CONSULTANT Impressions 07/20/2024 11:54 AM TREASURY MANAGEMENT SALES CONSULTANT IMPRESSION: 1. Osteoarthritis. 2. Mild varus deformity of the knee. DICTATION LOCATION: [address] Narrative 07/20/2024 11:54 AM TREASURY MANAGEMENT SALES CONSULTANT RIGHT KNEE DATE: 07/20/2024 10:15 AM HISTORY: [...] varus deformity of the knee. DICTATION LOCATION: [address] [place] Lb Woo MD DIAGNOSTIC IMAGING ORDERABLES Final Result from Last 3 Months Insurance
--- OUTSIDE RECORDS SUMMARY | 2024-09-12 14:02 | XMS_ITS | Clinical Summary ---
Author Organization [facility] Address [address] [place] [address] Care Team Providers Care Induction Machine Operator Name Role Phone Andrea Calles MD [...] on file Legal Sex Female 3:40 AM HOSPICE PLAN ADMINISTRATOR Gender Identity Not on file Sexual Orientation [...] 09/12/202507/2016, 11/24/2012 Insurance MEDICARE SOLUTIONS MEDICARE SOLUTIONS [place] [id number] Care Teams Induction Machine Operator Relationship Specialty Start Date End Date Andrea Calles MD PCP - General Family Medicine 08/17/23
--- OUTSIDE RECORDS SUMMARY | 2024-09-12 14:02 | XMS_ITS | Patient Health Summary ---
Author Organization [facility] Address [address] [place] [address] Care Team Providers Care Clinical Microbiologist Name Role Phone Andrea Calles MD Primary Care Provider [phone] Dung Estevez MD Unavailable Note from [facility],non-owned Affiliates and Associated Physician Practices is amultiple site organization consisting of ambulatory clinics and hospital sitesin [place], [place], [place] and [place]. This disclosure is being madepursuant to the Care Everywhere program and may not contain all information available regarding this patient. Last updated 18.[facility] Allergies No known active allergies* Codeine(Itching) -Low [...] for 30 days. * Sure Comfort Pen [place] 31G X 8 MM needle(Started 11/16/2023) USE [...] CDT Oxygen Saturation 99% 08/25/2023 1:31 PM ENZYME CHEMIST Inhaled Oxygen Concentration - - Weight 104.5 kg (230 lb 6.4 oz) 10/28/2023 3:20 PM CDT Height 170.2 cm (5' 7 ) 08/25/2023 1:31 PM ENZYME CHEMIST Body Mass Index 36.09 08/25/2023 1:31 PM ENZYME CHEMIST Procedures * DERMATOPATHOLOGY(Performed 08/31/2023) Performed for Neoplasm [...] TITER(Performed 05/27/2015) * COMPLEMENT TOTAL(Performed 05/27/2015) * READING PROFESSOR ANTIBODY(Performed 05/27/2015) * SS-B (SJOGREN'S) ANTIBODY(Performed 05/27/2015) [...] unspecified Results * DERMATOPATHOLOGY (08/31/2023 12:00 AM [facility]) Case Report Dermatopathology Report Case: [id number] Authorizing Provider: Suhail Beth MD Collected: 08/31/2023 12:00 AM Ordering Location: [facility] DermPath Lab Received: 09/02/2023 09:40 AM Pathologist: Carol Angela MD Specimen: Skin, rigth 3rd finger 4:39 PM [facility] DERMATOPATHOLOGY LABORATORY Final Diagnosis Specimen A. SKIN, rigth 3rd finger: PARAKERATOSIS (L85.9) (see microscopic description and comment) 4:39 PM [facility] DERMATOPATHOLOGY LABORATORY Clinical History Wart vs Punctate Keratoderma vs. Other 4:39 PM [facility] DERMATOPATHOLOGY LABORATORY Gross Description Specimen A: Received is one formalin filled container labeled with the patient's name and designated rigth 3rd finger. The specimen consists of a shave biopsy measuring 5x5x1, 3x3x1, 2x1x1, 7x3x1, 7x4x1, 8x6x1, 9x5x1, 9x6x2 mm. Jar 0+. 4:39 PM [facility] DERMATOPATHOLOGY LABORATORY Microscopic Description Specimen A. SKIN, rigth 3rd finger: The specimen consisted mostly of stratum corneum with retained nuclei. There is no cellular epidermis present for evaluation. COMMENT: This type of stratum corneum is frequently seen overlying squamous proliferations such as actinic keratoses or squamous cell carcinomas; however, a wart or clavus are other diagnostic possibilities. 4:39 PM [facility] DERMATOPATHOLOGY LABORATORY Disclaimer An external and internal positive and negative controls are appropriate for the histochemical, immunohistochemical and immunofluorescence stain(s) in this case (if any), except where stated explicitly. The performance characteristics of the stain(s) cited in this report were developed and its performance characteristic determined by the Dermatopathology Laboratory at [facility], directed by Dr. Yasmin Ritchie. These tests need not be, and therefore are not, approved by the [place] Food and Drug Administration. The tests are used for clinical purposes. Billing Codes Specimen Charges Stain Charges 73202 1 4 4:39 PM ENZYME CHEMIST DERMATOPATHOLOGY LABORATORY Embedded Images 4 4:39 PM ENZYME CHEMIST DERMATOPATHOLOGY LABORATORY Pathology/Cytolog y TISSUE SPECIMEN FROM SKIN / Unknown 08/31/2023 09/02/2023 9:40 AM ENZYME CHEMIST Suhail Beth MD LAB - PATHOLOGY/CYTO LOGY ORDERABLES DERMATOPATHOLOGY LABORATORY [facility] - Department of Dermatology [address] [place], [place] [id number] [place] [address] * XR CHEST 2VW (08/25/2023 2:52 PM ENZYME CHEMIST) Only the most recent of3 resultswithin the time period is included. Anatomical Region Laterality Modality Chest Radiographic Desi ging 08/25/2023 2:54 PM ENZYME CHEMIST Impressions 08/25/2023 2:55 PM ENZYME CHEMIST IMPRESSION: No acute cardiopulmonary abnormalities. > Interpreting Provider: Heike Reed MD on 08/25/2023 2:55 PM Narrative 08/25/2023 2:55 PM ENZYME CHEMIST PROCEDURE: XR CHEST 2VW DATE/TIME OF EXAM: [...] * (ABNORMAL) C-REACTIVE PROTEIN (08/25/2023 2:22 PM ENZYME CHEMIST) Only the most recent of14 resultswithin the time period is included. Pathologist [facility] C-Reactive Protein 12(H) 0 - 10 mg/L [facility] ACCOUNT BILL Blood BLOOD SPECIMEN / Unknown 08/25/2023 2:22 PM ENZYME CHEMIST 08/25/2023 Narrative Resulting Agency Comment Lab Testing performed at: [facility] [address] [facility] [phone] Dung Estevez MD LAB - CHEMISTRY PAVEL BISWAS [facility] ACCOUNT BILL [address] [place] [address] * QUANTIFERON TB-GOLD (08/25/2023 2:22 PM ENZYME CHEMIST) Only the most recent of3 resultswithin the time period is included. Pathologist [facility] QuantiFERON Incubation Incubation performed. [facility] ACCOUNT BILL [...] BLOOD SPECIMEN / Unknown 08/25/2023 2:22 PM ENZYME CHEMIST 08/25/2023 Narrative Resulting Agency Comment Lab Testing performed at: [facility] [address] [facility] [phone] Dung Estevez MD LAB - CHEMISTRY PAVEL BISWAS Performing Organization Address City/[facility]/ZIP Co de Phone Number [facility] ACCOUNT BILL [address] [place] [address] * ERYTHROCYTE SEDIMENTATION RATE (08/25/2023 2:22 PM ENZYME CHEMIST) Only the most recent of14 resultswithin the time period is included. Erythrocyte Sedimentation Rate Westergren 26 0 - 40 mm/hr [facility] ACCOUNT BILL Blood BLOOD SPECIMEN / Unknown 08/25/2023 2:22 PM ENZYME CHEMIST 08/25/2023 Narrative Resulting Agency Comment Lab Testing performed at: [facility] [address] [facility] [phone] Dung Estevez MD LAB - HEMATOLOGY ORD TIFFANYBLES Performing Organization Address [facility] Co de Phone Number [facility] ACCOUNT BILL [address] [place] [address] * (ABNORMAL) CBC WITH DIFFERENTIAL (08/25/2023 2:22 PM ENZYME CHEMIST) Only the most recent of16 resultswithin the [...] BLOOD SPECIMEN / Unknown 08/25/2023 2:22 PM ENZYME CHEMIST 08/25/2023 Narrative Resulting Agency Comment Lab Testing performed at: [facility] [address] [facility] [phone] Dung Estevez MD LAB - HEMATOLOGY ORD ERABLES [facility] ACCOUNT BILL [address] [place] [address] * (ABNORMAL) COMPREHENSIVE METABOLIC PANEL (08/25/2023 2:22 PM ENZYME CHEMIST) Only the most recent of12 resultswithin the [...] BLOOD SPECIMEN / Unknown 08/25/2023 2:22 PM ENZYME CHEMIST 08/25/2023 Narrative Resulting Agency Comment Lab Testing performed at: [facility] [address] [phone] Dung Estevez MD LAB - CHEMISTRY PAVEL BISWAS [facility] ACCOUNT BILL [address] [place] [address] * XR FOOT BILAT 3VW OR MORE [...] Resulting Agency Comment Lab Testing performed at: [facility] [address] [address] [facility] [facility] [address] [place] [phone] Dung Estevez MD LAB - CHEMISTRY ORDE RABMARILYNN Performing Organization Address City/[facility]/ZIP Co de Phone Number [facility] ACCOUNT BILL [address] [place] [address] * INTERPRETATION REFLEXED (04/19/2023 4:01 PM CDT) Interpretation [facility] ACCOUNT BILL Comment: Not infected with HCV unless early or acute infection is suspected (which may be delayed in an immunocompromised individual), or other evidence exists to indicate HCV infection. 04/19/2023 4:01 PM CDT 04/19/2023 Narrative Resulting Agency Comment Lab Testing performed at: [facility] [address] [facility] [phone] Dung Estevez MD LAB - SEROLOGY ORDER HOLA Performing Organization Address City/[facility]/ZIP Co de Phone Number [facility] ACCOUNT BILL [address] [place] [address] * CYCLIC CITRUL PEPTIDE ANTIBODY IGG/IGA (CCP) [...] Agency Comment Lab Testing performed at: [facility] [address] [facility] [phone] Dung Estevez MD LAB - SEROLOGY ORDER HOLA Performing Organization Address City/[facility]/ZIP Co de Phone Number [facility] ACCOUNT BILL [address] [place] [address] * RHEUMATOID FACTOR BLOOD QUANTITATIVE (04/19/2023 3:56 PM CDT) Only the most recent of3 resultswithin the time period is included. Rheumatoid Factor <13 <30 IU/mL [facility] ACCOUNT BILL Blood BLOOD SPECIMEN / Unknown 04/19/2023 3:56 PM CDT 04/19/2023 Narrative Resulting Agency Comment Lab Testing performed at: [address] [place] [phone] Dung Estevez MD LAB - CHEMISTRY ORDE RABLES Performing Organization Address City/[facility]/ZIP Co de Phone Number [facility] ACCOUNT BILL [address] [place] [address] * PATITO BLOOD SCREEN W/REFLEX TITER (04/19/2023 3:56 PM CDT) Only the most recent of3 resultswithin the time period is included. PATITO Negative Negative [facility] ACCOUNT BILL Comment: Methodology: Indirect Immunofluorescence Assay (IFA) utilroseanni ng Hep-2-Gamma cells. Blood BLOOD SPECIMEN / Unknown 04/19/2023 3:56 PM CDT 04/19/2023 Narrative Resulting Agency Comment Lab Testing performed at: [address] [place] [phone] Dung Estevez MD LAB - CHEMISTRY PAVEL BISWAS [facility] ACCOUNT BILL [address] [place] [address] * (ABNORMAL) VITAMIN D 25-HYDROXY (04/19/2023 3:56 [...] Resulting Agency Comment Lab Testing performed at: [facility] [address] [place] [address] [facility] [phone] Dung Estevez MD LAB - CHEMISTRY PAVEL BISWAS Performing Organization Address [facility] Co de Phone Number [facility] ACCOUNT BILL [address] [place] [address] * ALDOLASE (04/19/2023 3:56 PM CDT) Aldolase 5.0 3.3 - 10.3 U/L [facility] ACCOUNT BILL Blood BLOOD SPECIMEN / Unknown 04/19/2023 3:56 PM CDT 04/19/2023 Narrative Resulting Agency Comment Lab Testing performed at: [facility] [address] [facility] [phone] Dung Estevez MD LAB - CHEMISTRY PAVEL BISWAS [facility] ACCOUNT BILL [address] [place] [address] * CK BLOOD (04/19/2023 3:56 PM CDT) Only the most recent of3 resultswithin the time period is included. CK 85 29 - 168 U/L [facility] ACCOUNT BILL Blood BLOOD SPECIMEN / Unknown 04/19/2023 3:56 PM CDT 04/19/2023 Narrative Resulting Agency Comment Lab Testing performed at: [address] [place] [phone] Dung Estevez MD LAB - CHEMISTRY PAVEL BISWAS [facility] ACCOUNT BILL [address] [place] [address] * TSH (04/19/2023 3:56 PM CDT) Only the most recent of3 resultswithin the time period is included. Pathologist [facility] TSH 1.4597 0.35 - 4.94 uIU/mL [facility] ACCOUNT BILL Blood BLOOD SPECIMEN / Unknown 04/19/2023 3:56 PM CDT 04/19/2023 Narrative Resulting Agency Comment Lab Testing performed at: [address] [place] [phone] Dung Estevez MD LAB - CHEMISTRY PAVEL BISWAS Performing Organization Address City/[facility]/ZIP Co de Phone Number [facility] ACCOUNT BILL [address] [place] [address] * (ABNORMAL) CBC W AUTO DIFFERENTIAL W/O PLATELETS (01/01/2021 12:27 PM CDT) Pathologist [facility] WBC 7.5 3.4 - 10.8 x10E3/uL [facility] [...] Resulting Agency Comment Lab Testing performed at: [facility] [address] [facility] [phone] Tayo Garcia MD LAB - HEMATOLOGY O RDERABLES [facility] INSURANCE BILL [address] [place] [address] * HEPATITIS SCREEN ACUTE (01/01/2021 12:27 PM [...] with a HCV Nucleic Acid Amplification test ([id number]). Blood BLOOD SPECIMEN / Unknown 01/01/2021 12:27 PM CDT 01/01/2021 Narrative Resulting Agency Comment Lab Testing performed at: [facility] [address] [facility] [phone] Tayo Garcia MD LAB - CHEMISTRY OR DERABLES [facility] [address] [place] [address] * QUANTIFERON-TB GOLD PLUS 4-TUBE (02/07/2020 1:39 PM CDT) Only the most recent of2 resultswithin the time period is included. [facility] QuantiFERON Criteria Comment 02/11/2020 5:06 PM CDT [facility] ([facility]) Comment: The QuantiFERON-TB Gold Plus result is determined by subtracting the Nil value from either TB antigen (Ag) tube. The mitogen tube serves as a control for the test. QuantiFERON TB1 Ag Value 0.05 IU/mL 02/11/2020 5:06 PM CDT [facility] ([facility]) QuantiFERON TB2 Ag Value 0.04 IU/mL 02/11/2020 5:06 PM CDT [facility] ([facility]) QuantiFERON Nil Value 0.05 IU/mL 02/11/2020 5:06 PM CDT [facility] ([facility]) QuantiFERON Mitogen Value >10.00 IU/mL 02/11/2020 5:06 PM CDT [facility] ([facility]) QuantiFERON-TB Gold Plus Negative Negative 02/11/2020 5:06 PM CDT [facility] ([facility]) Comment: The specimen received for QuantiFERON [...] CDT 02/07/2020 4:22 PM CDT Narrative [facility] ([facility]) - 02/11/2020 5:06 PM CDT Performed at: [facility] [address] [place], [place] [phone] Professor Of Forestry: Chay Ocampo PhD, Phone: [phone] Tayo Garcia MD LAB - CHEMISTRY OR DERABLES Performing Organization Address City/[facility] Co de Phone Number [facility] [address] [place] [address] * HEMOGLOBIN A1C (HgbA1C) (08/31/2018 1:41 PM ENZYME CHEMIST) Only the most recent of2 resultswithin the time period is included. Hemoglobin A1c 6.1 4.2 - 6.3 % [facility] INSURANCE BILL Comment:AVERAGE GLUCOSE MG/D L BLOOD 128 mg/dL Blood BLOOD SPECIMEN / Unknown 08/31/2018 1:41 PM ENZYME CHEMIST 08/31/2018 Narrative Resulting Agency Comment [facility] [place] [facility] [place] [address] [facility] [phone] Tayo Garcia MD LAB - CHEMISTRY OR DERABLES Performing Organization Address [facility] Co de Phone Number [facility] INSURANCE BILL [address] [place] [address] * ANGIOTENSIN CONVERTING ENZYME BLOOD (08/31/2018 1:41 PM ENZYME CHEMIST) Only the most recent of2 resultswithin the time period is included. Angiotensin-Con verting Enzyme 28 14 - 82 U/L [facility] INSURANCE BILL 08/31/2018 1:41 PM ENZYME CHEMIST 08/31/2018 Narrative Resulting Agency Comment [facility] [address] [facility] [phone] Tayo Garcia MD LAB - CHEMISTRY OR DERABLES Performing Organization Address City/[facility] Co de Phone Number [facility] INSURANCE BILL [address] [place] [address] * XR HAND BILAT 2VW (02/22/2018 10:59 [...] AM CDT 02/22/2018 Narrative Resulting Agency Comment [facility] [address] [facility] [phone] Tayo Garcia MD LAB - CHEMISTRY OR DERABLES [facility] INSURANCE BILL [address] [place] [address] * HEPATITIS B + C PANEL (02/22/2018 10:31 AM CDT) Pathologist [facility] Hepatitis B Virus Surface Antigen Negative Negative [...] AM CDT 02/22/2018 Narrative Resulting Agency Comment [facility] [address] [facility] [phone] Tayo Garcia MD LAB - SEROLOGY ORD ERABLES [facility] INSURANCE BILL [address] [place] [address] * QUANTIFERON IN TUBE REFLEXED (02/22/2018 10:31 AM CDT) [facility] QuantiFERON TB Gold Negative Negative [facility] INSURANCE [...] AM CDT 02/22/2018 Narrative Resulting Agency Comment [facility] [address] [facility] [phone] Tayo Garcia MD LAB - CHEMISTRY OR DERABLES Performing Organization Address [facility] Co de Phone Number [facility] [address] [place] [address] * HLA TYPING B27 (02/22/2018 10:31 AM CDT) HLA-B27 Negative [facility] INSURANCE BILL Comment: HLA-B*27 Negative B27 allele interpretation for all loci based on IMGT/HLA database version 3.27 This test was developed and its performance characteristics determined by [facility]. It has not been cleared or approved by the Food and Drug Administration. [facility] CLIA ID Number [id number] . This test was performed using PCR [...] AM CDT 02/22/2018 Narrative Resulting Agency Comment [facility] [address] [facility] [phone] Tayo Garcia MD LAB - CHEMISTRY OR DERABLES Performing Organization Address City/[facility]/ZIP Co de Phone Number [facility] [address] [place] [address] * T4 TOTAL (05/10/2017 3:08 PM CDT) Pathologist [facility] T4 Total 6.3 4.9 - 11.7 mcg/dL [facility] Blood specimen (specimen) BLOOD SPECIMEN / Unknown 05/10/2017 3:08 PM CDT 05/10/2017 3:29 PM CDT Ahmet CHINCHILLA LAB - [place] ORDERABLES [address] [phone] * (ABNORMAL) VITAMIN B12 (05/10/2017 3:03 PM CDT) [facility] Vitamin B12 961(H) 213 - 816 pg/mL [facility] Blood specimen (specimen) BLOOD SPECIMEN / Unknown 05/10/2017 3:03 PM CDT 05/10/2017 3:30 PM CDT Michelle Castillo MD LAB - CHEMISTRY ORDYulia BISWAS [address] [phone] * BASIC METABOLIC PANEL (CALCIUM TOTAL) (12/28/2016 3:06 PM CDT) [facility] BUN 8 7 - 26 mg/dL [facility] Creatinine 0.9 0.6 - 1.2 mg/dL [facility] Sodium 139 136 - 145 mmol/L [facility] Potassium 4.1 3.5 - 4.5 mmol/L [facility] Chloride 105 98 - 107 mmol/L [facility] CO2 25 22 - 29 mmol/L [facility] Glucose 78 70 - 115 mg/dL [facility] Calcium 8.9 8.4 - 10.2 mg/dL [facility] Anion Gap 13 8 - 18 [facility] BUN/Creatinine Ratio 9 7 - 23 [facility] Osmolality Calculated 285 270 - 300 mOsm/kg [facility] eGFR >60 >60 mL/min/1.7 3 m2 [facility] Blood specimen (specimen) BLOOD SPECIMEN / Unknown 12/28/2016 3:06 PM CDT 12/28/2016 3:16 PM CDT Ko Ernandez MD LAB - CHEMISTRY PAVEL BISWAS Performing Organization Address [facility]/ZIP Co de Phone Number [address] [phone] * (ABNORMAL) URINALYSIS W/MICROSCOPIC NO CULTURE (12/28/2016 1:52 PM CDT) Only the most recent of3 resultswithin the time period is included. Color UA Yellow Straw, Yellow, Colorless, Light Yellow [facility] Clarity UA Clear Clear [facility] Specific [place] UA 1.006 1.001 - 1.030 [facility] pH UA 6.5 5.0 - 8.0 [facility] Protein UA Negative <=20 mg/dL [facility] Glucose UA Negative Negative mg/dL [facility] Ketone UA Negative Negative mg/dL [facility] Bilirubin UA Negative Negative mg/dL [facility] Blood UA Negative Negative [facility] Nitrite UA Negative Negative [facility] Leukocyte Esterase Trace(A) Negative [facility] Urobilinogen UA <2.0 <2.0 mg/dL [facility] RBC UA 2 0 - 8 /HPF [facility] WBC UA 5(H) 0 - 2 /HPF [facility] Bacteria UA Many(A) Rare, Occasional, None /HPF [facility] Squamous Epithelial Cells UA 3(H) 0 - 1 /HPF [facility] Mucus UA Rare(A) None /LPF [facility] Urine specimen (specimen) 12/28/2016 1:52 PM CDT 12/28/2016 2:09 PM CDT Ko Ernandez MD LAB - URINALYSIS ORD MAGDY [address] [phone] * XR ELBOW RIGHT 3VW OR MORE (10/08/2016 11:28 AM ENZYME CHEMIST) Anatomical Region Laterality Modality Upper Extremity Other Impressions 10/08/2016 12:04 PM ENZYME CHEMIST IMPRESSION: No displaced fracture. If there is continued clinical concern for fracture CT or MRI could be performed. Report dictated by Ankit Evans M.D. (resident). Dr. LB Henao MD have personally reviewed and interpreted this examination/study. This report was electronically signed by LB SHAHID MD on 10/08/2016 12:04 PM . 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 Report dictated by Ankit Evans M.D. (resident). Dr. LB Henao MD have personally reviewed and interpreted this examination/study. This report was electronically signed by LB SHAHID MD on 09/30/2016 3:59 PM . Narrative 09/30/2016 3:59 PM ENZYME CHEMIST EXAMINATION: XR KNEE RIGHT 4+ VW DATE: [...] W RIGHT HIP 2VW (09/30/2016 3:03 PM ENZYME CHEMIST) Only the most recent of2 resultswithin the time period is included. Anatomical Region Laterality Modality Other Impressions 09/30/2016 3:59 PM ENZYME CHEMIST IMPRESSION: Minimal degenerative change without joint space [...] 3:59 PM . Narrative 09/30/2016 3:59 PM ENZYME CHEMIST EXAMINATION: 2 views of the right hip [...] PA-C LAB - POINT OF CARE ORDERABLES [facility] RADIOLOGY * HEMOGLOBIN A1C - POINT OF CARE (AMB) [facility] (09/23/2016) Hemoglobin A1c POCT 5.9 [facility] Capillary blood specimen (specimen) 09/23/2016 Ishaan Leo PA-C LAB - POINT OF CARE ORDERABLES [facility] * QUANTIFERON TB-GOLD INC (08/24/2016 1:21 PM ENZYME CHEMIST) Only the most recent of2 resultswithin the time period is included. QuantiFERON TB Gold Negative Negative [facility] (BEAKER) Comment: The specimen received for QuantiFERON testing was incubated by the ordering institution. Specific procedures outlined in our Directory of Services and in the package insert for the QuantiFERON Gold (In Tube) test must be followed to enable for proper stimulation of cells for the production of interferon gamma. QuantiFERON Criteria Comment [facility] (BEAKER) Comment: To be considered positive [...] values. QuantiFERON TB Antigen Value 0.20 IU/mL [facility] (BEAKER) QuantiFERON Nil Value 0.20 IU/mL [facility] (BEAKER) QuantiFERON Mitogen Value >10.00 IU/mL [facility] (BEAKER) QFT TB Ag minus Nil Value 0.00 IU/mL [facility] (BEAKER) Interpretation Comment [facility] Comment: The QuantiFERON TB Gold (in Tube) [...] BLOOD SPECIMEN / Unknown 08/24/2016 1:21 PM ENZYME CHEMIST 08/24/2016 1:36 PM ENZYME CHEMIST Narrative [facility] - 08/27/2016 1:11 PM ENZYME CHEMIST Performed at: - [facility] [address] [id number] Professor Of Forestry: Chay Ocampo PhD, Phone: [phone] Berenice Robins MD LAB - SEROLOGY PAVEL BISWAS [facility] DMITRY [place]) * XR KNEE RIGHT 3VW (08/24/2016 1:12 PM ENZYME CHEMIST) Anatomical Region Laterality Modality Lower Extremity Other Impressions 08/24/2016 5:15 PM ENZYME CHEMIST IMPRESSION: 1. Bilateral hip radiographs demonstrate minimal degenerative change without joint space narrowing. 2. Sacroiliac joint radiographs demonstrate no arthritis. 3. Bilateral knee radiographs demonstrate mild osteoarthritis. This report was electronically signed by LB SHAHID MD on 08/24/2016 5:15 PM . Narrative 08/24/2016 5:15 PM ENZYME CHEMIST Exam: 1. XR HIP RIGHT 2-3 VW [...] XR KNEE LEFT 3VW (08/24/2016 1:12 PM ENZYME CHEMIST) Anatomical Region Laterality Modality Lower Extremity Other Impressions 08/24/2016 5:15 PM ENZYME CHEMIST IMPRESSION: 1. Bilateral hip radiographs demonstrate minimal degenerative change without joint space narrowing. 2. Sacroiliac joint radiographs demonstrate no arthritis. 3. Bilateral knee radiographs demonstrate mild osteoarthritis. This report was electronically signed by LB SHAHID MD on 08/24/2016 5:15 PM . Narrative 08/24/2016 5:15 PM ENZYME CHEMIST Exam: 1. XR HIP RIGHT 2-3 VW [...] LEFT 2VW OR MORE (08/24/2016 1:12 PM ENZYME CHEMIST) Anatomical Region Laterality Modality Pelvis, Lower Extremity Other Impressions 08/24/2016 5:15 PM ENZYME CHEMIST IMPRESSION: 1. Bilateral hip radiographs demonstrate minimal degenerative change without joint space narrowing. 2. Sacroiliac joint radiographs demonstrate no arthritis. 3. Bilateral knee radiographs demonstrate mild osteoarthritis. This report was electronically signed by LB SHAHID MD on 08/24/2016 5:15 PM . Narrative 08/24/2016 5:15 PM ENZYME CHEMIST Exam: 1. XR HIP RIGHT 2-3 VW [...] JOINTS 2VW OR LESS (08/24/2016 1:12 PM ENZYME CHEMIST) Anatomical Region Laterality Modality Pelvis, Lower Extremity Other Impressions 08/24/2016 5:15 PM ENZYME CHEMIST IMPRESSION: 1. Bilateral hip radiographs demonstrate minimal degenerative change without joint space narrowing. 2. Sacroiliac joint radiographs demonstrate no arthritis. 3. Bilateral knee radiographs demonstrate mild osteoarthritis. This report was electronically signed by LB SHAHID MD on 08/24/2016 5:15 PM . Narrative 08/24/2016 5:15 PM ENZYME CHEMIST Exam: 1. XR HIP RIGHT 2-3 VW [...] WBC, UA 0-5 0 - 5 /hpf [facility] (BEAKER) RBC UA 0-2 0 - 2 /hpf [facility] (BEAKER) Epithelial Cells (non renal) 0-10 0 - 10 /hpf [facility] (BEAKER) Mucus UA Present Not Estab. [facility] (BEAKER) Bacteria UA None seen None seen/Few [facility] (BEAKER) 04/20/2016 3:58 PM CDT 04/20/2016 5:46 PM CDT Narrative [facility] (BEAKER) - 04/21/2016 7:14 AM CDT Performed at: [address] [place] [id number] Professor Of Forestry: Chay Ocampo PhD, Phone: [phone] Specimen Comment: A courtesy copy of this report has been sent to Specimen Comment: [phone]. Berenice Robins MD LAB - URINALYSIS OR DERABLES [facility] (BEAKER) * URINALYSIS W/MICROSCOPIC REFLEX TO CULTURE (04/20/2016 3:58 PM CDT) Only the most recent of2 resultswithin the time period is included. Pathologist [facility] Specific [place] 1.023 1.005 - 1.030 [facility] (BEAKER) pH Urine 5.5 5.0 - 7.5 [facility] (BEAKER) Color UA Yellow Yellow [facility] (BEAKER) Appearance Clear Clear [facility] (BEAKER) Leukocyte Esterase Negative Negative [facility] (BEAKER) Protein UA Negative Negative/Tra ce [facility] (BEAKER) Glucose UA Negative Negative [facility] (BEAKER) Ketone UA Negative Negative [facility] (BEAKER) Blood UA Negative Negative [facility] (BEAKER) Bilirubin Negative Negative [facility] (BEAKER) Urobilinogen Semi-Qn 0.2 0.2 - 1.0 mg/dL [facility] (BEAKER) Nitrite UA Negative Negative [facility] (BEAKER) Microscopic Examination [facility] Comment:Microscopic follows if indicated. Microscopic Examination See below: [facility] (BEAKER) Comment:Microscopic was sabi cated and was performed. Urinalysis Reflex [facility] Comment:This specimen will n ot reflex to a Urine Culture. Urine specimen (specimen) 04/20/2016 3:58 PM CDT 04/20/2016 5:46 PM CDT Narrative [facility] ([place]) - 04/21/2016 7:14 AM CDT Specimen Type->Urine Performed at: - [address] [id number] Professor Of Forestry: Chay Ocampo PhD, Phone: [phone] Specimen Comment: A courtesy copy of this report has been sent to Specimen Comment: [phone]. Berenice Robins MD LAB - URINALYSIS OR DERABLES [facility] ([place]) * XR FOOT RIGHT 3VW OR MORE (05/27/2015 1:44 PM CDT) Anatomical Region Laterality Modality Ankle / Foot Other Impressions 05/27/2015 8:32 PM CDT Impression: 1. Minimal nonspecific degenerative changes in the hands, and mild degenerative changes in the feet, likely reflecting early osteoarthritis. Report dictated by Lilliam Espinosa M.D. (associate professor of radiology). I, Dr. LB SHAHID MD have personally [...] earlyosteoarthritis. Report dictated by Lilliam Espinosa M.D. (associate professor of radiology). Dr. LB Henao MD have personally reviewed [...] osteoarthritis. Report dictated by Lilliam Espinosa M.D. (associate professor of radiology). Dr. LB Henao MD have personally reviewed [...] earlyosteoarthritis. Report dictated by Lilliam Espinosa M.D. (associate professor of radiology). Dr. LB Henao MD have personally reviewed [...] osteoarthritis. Report dictated by Lilliam Espinosa M.D. (associate professor of radiology). Dr. LB Henao MD have personally reviewed [...] earlyosteoarthritis. Report dictated by Lilliam Espinosa M.D. (associate professor of radiology). Dr. LB Henao MD have personally reviewed [...] osteoarthritis. Report dictated by Lilliam Espinosa M.D. (associate professor of radiology). Dr. LB Henao MD have personally reviewed [...] earlyosteoarthritis. Report dictated by Lilliam Espinosa M.D. (associate professor of radiology). I, Dr. LB SHAHID MD have personally reviewed and interpreted thisexamination/study. This report was electronically signed by LB SHAHID MD on05/27/2015 8:32 PM . Berenice Robins MD DIAGNOSTIC IMAGING ORDERABLES * VILLALOBOS (SM) ANTIBODY АНДРЕЙ (05/27/2015 1:36 PM CDT) Villalobos Antibody 1.8 0.0 - 19.9 Units [facility] Comment: АНДРЕЙ Antibody Numeric Result Interpretation: <20.0 Units: Negative 20.0 - 39.0 Units: Weakly Positive >39.0 Units: Positive Blood specimen (specimen) BLOOD SPECIMEN / Unknown 05/27/2015 1:36 PM CDT 05/27/2015 2:34 PM CDT Berenice Robins MD LAB - CHEMISTRY ORD ERABLES [address] [phone] * READING PROFESSOR ANTIBODY (05/27/2015 1:36 PM CDT) SM/READING PROFESSOR Antibody 1.2 0.0 - 19.9 Units [facility] Comment: АНДРЕЙ Antibody Numeric Result Interpretation: <20.0 Units: Negative 20.0 - 39.0 Units: Weakly Positive >39.0 Units: Positive Blood specimen (specimen) BLOOD SPECIMEN / Unknown 05/27/2015 1:36 PM CDT 05/27/2015 2:34 PM CDT Berenice Robins MD LAB - CHEMISTRY ORD ERABLES [address] [phone] * HISTONE ANTIBODY (05/27/2015 1:36 PM CDT) Anti-Histone Antibody 0.2 0.0 - 0.9 Units [facility] (BEAKER) Comment: Negative <1.0 Weak Positive 1.0 - 1.5 Moderate Positive 1.6 - 2.5 Strong Positive >2.5 Blood specimen (specimen) BLOOD SPECIMEN / Unknown 05/27/2015 1:36 PM CDT 05/27/2015 2:34 PM CDT Narrative [facility] (BEAKER) - 05/29/2015 1:19 PM CDT Performed at: - [address] [id number] Professor Of Forestry: Bulmaro Mojica MD, Phone: [phone] Berenice Robins MD LAB - CHEMISTRY ORD ERABLES [facility] ([place]) * COMPLEMENT TOTAL (05/27/2015 1:36 PM CDT) Pathologist [facility] Complement Total CH50 59 42 - 62 U/mL [facility] ([place]) Blood specimen (specimen) BLOOD SPECIMEN / Unknown 05/27/2015 1:36 PM CDT 05/27/2015 2:34 PM CDT Narrative [facility] ([place]) - 05/28/2015 3:23 PM CDT Performed at: [address] [id number] Professor Of Forestry: Chay Ocampo PhD, Phone: [phone] Berenice Robins MD LAB - CHEMISTRY ORD ERABLES Performing Organization Address City/[facility]/ZIP Co de Phone Number [facility] ([place]) * SS-B (SJOGRENS'S) ANTIBODY (05/27/2015 1:36 PM CDT) Pathologist [facility] SS-B LA Antibody 1.3 0.0 - 19.9 Units [facility] Comment: АНДРЕЙ Antibody Numeric Result Interpretation: <20.0 Units: Negative 20.0 - 39.0 Units: Weakly Positive >39.0 Units: Positive Blood specimen (specimen) BLOOD SPECIMEN / Unknown 05/27/2015 1:36 PM CDT 05/27/2015 2:34 PM CDT Berenice Robins MD LAB - CHEMISTRY ORD ERABLES [address] [phone] * SS-A (SJOGREN'S) ANTIBODY (05/27/2015 1:36 PM CDT) SS-A (Ro) Antibody 1.1 0.0 - 19.9 Units [facility] Comment: АНДРЕЙ Antibody Numeric Result Interpretation: <20.0 Units: Negative 20.0 - 39.0 Units: Weakly Positive >39.0 Units: Positive Blood specimen (specimen) BLOOD SPECIMEN / Unknown 05/27/2015 1:36 PM CDT 05/27/2015 2:34 PM CDT Berenice Robins MD LAB - CHEMISTRY ORD ERABLES Performing Organization Address City/[facility]/ZIP Co de Phone Number [address] [phone] * SCLERODERMA 70 (SCL) ANTIBODY (05/27/2015 1:36 PM CDT) SCL-70 Antibody 3.7 0.0 - 19.9 Units [facility] Comment: АНДРЕЙ Antibody Numeric Result Interpretation: <20.0 Units: Negative 20.0 - 39.0 Units: Weakly Positive >39.0 Units: Positive Blood specimen (specimen) BLOOD SPECIMEN / Unknown 05/27/2015 1:36 PM CDT 05/27/2015 2:34 PM CDT Berenice Robins MD LAB - CHEMISTRY ORD ERABLES Performing Organization Address City/[facility]/ZIP Co de Phone Number [address] [phone] * DNA ANTIBODY DOUBLE STRANDED (05/27/2015 1:36 PM CDT) dsDNA Antibody 0 0 - 29 IU/mL [facility] Comment: dsDNA Antibody Numeric Result Interpretation: 0 - 29 IU/mL: Negative 30 - 75 IU/mL: Borderline >75 IU/mL: Positive Blood specimen (specimen) BLOOD SPECIMEN / Unknown 05/27/2015 1:36 PM CDT 05/27/2015 2:34 PM CDT Berenice Robins MD LAB - HEMATOLOGY OR DERABLES Performing Organization Address [facility] Co de Phone Number [address] [phone] * CYCLIC CITRUL PEPTIDE AB IGG (CCP) (05/27/2015 1:36 PM CDT) CCP Antibody IgG <0.5 <5.0 U/mL [facility] Blood specimen (specimen) BLOOD SPECIMEN / Unknown 05/27/2015 1:36 PM CDT 05/27/2015 2:34 PM CDT Berenice Robins MD LAB - CHEMISTRY ORD ERABLES Performing Organization Address [facility] Co de Phone Number [address] [phone] * COMPLEMENT C4 (05/27/2015 1:36 PM CDT) Complement C4 43 15 - 57 mg/dL [facility] Blood specimen (specimen) BLOOD SPECIMEN / Unknown 05/27/2015 1:36 PM CDT 05/27/2015 2:34 PM CDT Berenice Robins MD LAB - SEROLOGY ORDE ZULAY Performing Organization Address [facility] Co de Phone Number [address] [phone] * HEPATITIS B SURFACE ANTIGEN W RFLX CONFIRMATION (05/27/2015 1:36 PM CDT) Hepatitis B Virus Surface Antigen Non-reacti ve Non-reacti ve [facility] Blood specimen (specimen) BLOOD SPECIMEN / Unknown 05/27/2015 1:36 PM CDT 05/27/2015 2:34 PM CDT Berenice Robins MD LAB - CHEMISTRY ORD ERABLES Performing Organization Address [facility] Co de Phone Number [address] [phone] * T4 FREE (05/27/2015 1:36 PM CDT) Pathologist [facility] T4 Free 0.9 0.7 - 1.5 ng/dL [facility] Blood specimen (specimen) BLOOD SPECIMEN / Unknown 05/27/2015 1:36 PM CDT 05/27/2015 2:34 PM CDT Berenice Robins MD LAB - CHEMISTRY ORD ERABLES Performing Organization Address City/[facility]/ZIP Co de Phone Number [address] [phone] * HEPATITIS C ANTIBODY (05/27/2015 1:36 PM CDT) [facility] Hepatitis C Antibody Non-react sascha Non-reac tive [facility] Comment: Hepatitis C Antibody screen indicates no [...] - CHEMISTRY ORD ERABLES Performing Organization Address [facility] Co de Phone Number [address] [phone] * COMPLEMENT C3 (05/27/2015 1:36 PM CDT) [facility] Complement C3 168 82 - 193 mg/dL [facility] Blood specimen (specimen) BLOOD SPECIMEN / Unknown 05/27/2015 1:36 PM CDT 05/27/2015 2:34 PM CDT Berenice Robins MD LAB - CHEMISTRY ORD ERABLES Performing Organization Address [facility]/ZIP Co de Phone Number [address] [phone] * XR KNEE BILAT ONE OR TWO [...] findings. Juanjose Vick MD DIAGNOSTIC IMAGING [facility] Care Teams Clinical Microbiologist Relationship Specialty Start Date End Date Andrea Calles MD [address] [facility] [place] [address] PCP - General Family Medicine 04/19/23 [place] [address] [place] [address] Rheumatology 04/19/23
--- OUTSIDE RECORDS SUMMARY | 2024-09-12 14:02 | XMS_ITS | Referral Summary ---
Author Organization [facility] Address [address] [facility] [place] [address] Care Team Providers Care Guide Winder Name Role Phone Andrea Calles MD Primary Care Provider [phone] Dung Estevez MD Unavailable Source Comments [facility],non-owned Affiliates and Associated Physician Practices is amultiple site organization consisting of ambulatory clinics and hospital sitesin [place], [place], [place] and [place]. This disclosure is being madepursuant to the Care Everywhere program and may not contain all information available regarding this patient. Last updated 18.[facility] Allergies No known active allergies Medications * [...] for 30 days. Active Sure Comfort Pen [place] 31G X 8 MM needle USE DAILY [...] 10/08/2021 Assessment & Plan (10/08/2021 4:42 PM PEDIATRICIAN): Reports previous diagnosis of rheumatoid arthritis with [...] of sc Cimzia 400 mg provided at [facility] infusion unit on 09/23/2021. She has [...] as an active treatment out of the [facility] infusion therapy plan. She will be scheduled [...] CDT Oxygen Saturation 99% 08/25/2023 1:31 PM PEDIATRICIAN Inhaled Oxygen Concentration - - Weight 104.5 kg (230 lb 6.4 oz) 10/28/2023 3:20 PM CDT Height 170.2 cm (5' 7 ) 08/25/2023 1:31 PM PEDIATRICIAN Body Mass Index 36.09 08/25/2023 1:31 PM PEDIATRICIAN Plan of Treatment Not on file Procedures Procedure Name Priority Date/Time Associated Diagnosis Comments COMPREHENSIVE METABOLIC PANEL Routine 08/25/2023 2:22 PM PEDIATRICIAN Arthralgia, unspecified joint HEPATITIS SCREEN ACUTE ([facility]) Routine 04/19/2023 4:01 PM CDT Arthralgia, unspecified joint LIPID PROFILE - POINT OF CARE (AMB) [facility] Routine 09/23/2016 from Last 3 Months or Most Recently Relevant to Health Maintenance Results * (ABNORMAL) COMPREHENSIVE METABOLIC PANEL (08/25/2023 2:22 PM PEDIATRICIAN) Pathologist [facility] Glucose 94 70 - 99 mg/dL [facility] [...] BLOOD SPECIMEN / Unknown 08/25/2023 2:22 PM PEDIATRICIAN 08/25/2023 Narrative Resulting Agency Comment Lab Testing performed at: [facility] [address] [facility] [id number] Dung Estevez MD LAB - CHEMISTRY PAVEL BISWAS [facility] ACCOUNT BILL [id number] [place] [address] * HEPATITIS SCREEN ACUTE ([facility]) (04/19/2023 4:01 [...] Resulting Agency Comment Lab Testing performed at: [facility] [address] [place] [address] Dr Saul DISLA [id number] Dung Estevez MD LAB - CHEMISTRY PAVEL BISWAS [facility] ACCOUNT BILL [address] [place] [address] * LIPID PROFILE - POINT OF CARE (AMB) [facility] (09/23/2016) Cholesterol Total 178 [facility] HDL 44 mg/dL [facility] Triglycerides 151 mg/dL [facility] LDL Calculated 104 [facility] 09/23/2016 Ishaan Leo PA-C LAB - POINT OF CARE ORDERABLES [facility] from Last 3 Months or Most Recently Relevant to Health Maintenance Care Teams Guide Winder Relationship Specialty Start Date End Date Andrea Calles MD [address] [facility] [place] [phone] PCP - General Family Medicine 04/19/23 [place] [address] [address] Rheumatology 04/19/23
--- OUTSIDE RECORDS SUMMARY | 2024-09-12 14:02 | XMS_ITS | Clinical Summary ---
Author Organization [facility] [employer] Address [address] [place] [address] Care Team Providers Care Newspaper Inserter Name Role Phone Andrea Calles MD Primary Care Provider [phone] Dung Estevez MD Unavailable Source Comments [facility],non-owned Affiliates and Associated Physician Practices is amultiple site organization consisting of ambulatory clinics and hospital sitesin [place], [place], [place] and [place]. This disclosure is being madepursuant to the Care Everywhere program and may not contain all information available regarding this patient. Last updated 18.[facility] [employer] Allergies No known active allergies Medications * [...] for 30 days. Active Sure Comfort Pen [place] 31G X 8 MM needle USE DAILY [...] 10/08/2021 Assessment & Plan (10/08/2021 4:42 PM FIRE ALARM TECHNICIAN): Reports previous diagnosis of rheumatoid arthritis with [...] of sc Cimzia 400 mg provided at [facility] infusion unit on 09/23/2021. She has [...] as an active treatment out of the [facility] infusion therapy plan. She will be scheduled [...] CDT Oxygen Saturation 99% 08/25/2023 1:31 PM FIRE ALARM TECHNICIAN Inhaled Oxygen Concentration - - Weight 104.5 kg (230 lb 6.4 oz) 10/28/2023 3:20 PM CDT Height 170.2 cm (5' 7 ) 08/25/2023 1:31 PM FIRE ALARM TECHNICIAN Body Mass Index 36.09 08/25/2023 1:31 PM FIRE ALARM TECHNICIAN Plan of Treatment Health Maintenance Due Date [...] COMPREHENSIVE METABOLIC PANEL Routine 08/25/2023 2:22 PM FIRE ALARM TECHNICIAN Arthralgia, unspecified joint HEPATITIS SCREEN ACUTE ([facility]) Routine 04/19/2023 4:01 PM CDT Arthralgia, unspecified joint LIPID PROFILE - POINT OF CARE (AMB) [facility] Routine 09/23/2016 from Last 3 Months or Most Recently Relevant to Health Maintenance Results * (ABNORMAL) COMPREHENSIVE METABOLIC PANEL (08/25/2023 2:22 PM FIRE ALARM TECHNICIAN) Glucose 94 70 - 99 mg/dL [facility] [...] BLOOD SPECIMEN / Unknown 08/25/2023 2:22 PM FIRE ALARM TECHNICIAN 08/25/2023 Narrative Resulting Agency Comment [facility] performed at: [facility] [address] [facility] [id number] Dung Estevez MD LAB - CHEMISTRY PAVEL BISWAS [facility] ACCOUNT BILL [address] [place] [address] * HEPATITIS SCREEN ACUTE ([facility]) (04/19/2023 4:01 [...] Resulting Agency Comment [facility] [address] Saul DISLA [id number] Dung Estevez MD LAB - CHEMISTRY PAVEL BISWAS [facility] ACCOUNT BILL [address] [place] [address] * LIPID PROFILE - POINT OF CARE (AMB) [facility] (09/23/2016) Cholesterol Total 178 [facility] HDL 44 mg/dL [facility] Triglycerides 151 mg/dL [facility] LDL Calculated [facility] 09/23/2016 Ishaan Leo PA-C LAB - POINT OF CARE ORDERABLES [facility] from Last 3 Months or Most Recently Relevant to Health Maintenance Care Teams Newspaper Inserter Relationship Specialty Start Date End Date Andrea Calles MD 1 [place] [address] PCP - General Family Medicine 04/19/23 [place] [address] [address] Rheumatology 04/19/23
--- OUTSIDE RECORDS SUMMARY | 2024-09-12 14:02 | XMS_ITS | Encounter Summary ---
Author Organization [facility] Address [facility] [place] [address] Care Team Providers Care Wet Mix Operator Name Role Phone Veena Gonzalez MD Primary Care Provider Unavailable Ishaan Marquez MD Primary Care Provider None, Provider Primary Care Provider UnavailVianey Santamaria MD Primary Care Provider [phone] Andrea Calles MD Primary Care Provider [phone] Jesse Mead MD Primary Care Provider [phone] Encounter Details Date Type Department Care Team (Latest Contact Info) Description 06/06/2018 Abstract [facility] Medical [facility] Veena Gonzalez MD Social History [...] on filedocumented in this encounter Care Teams Wet Mix Operator Relationship Specialty Start Date End Date Veena Gonzalez MD PCP - General FAMILY PRACTICE 10/30/18 Ishaan Marquez MD [address] [address] PCP - General FAMILY PRACTICE 03/30/19 09/19/20 None, MD Urmila PCP - General 09/20/20 11/12/20 Vianey Shukla MD [address] [address] PCP - General INTERNAL MEDICINE 11/13/20 11/18/22 Andrea Calles MD [address] [address] PCP - General FAMILY PRACTICE 11/19/22 07/10/24 Jesse Mead MD [address] [address] PCP - General FAMILY PRACTICE 07/11/24 documented as of this encounter
--- OUTSIDE RECORDS SUMMARY | 2024-09-12 14:02 | XMS_ITS | Clinical Summary ---
Author Organization [facility] Address [address] [place] [address] Care Team Providers Care Pension Examiner Name Role Phone Jesse Mead MD Primary Care Provider [phone] Allergies Active Allergy Reactions Criticality Noted Date [...] daily. 9 Active Cholecalcifero l (VITAMIN D3) 84211 units Tab Take 1 tablet by mouth [...] Morbid (severe) obesity due to excess calories ([facility]) 11/17/2022 Body mass index (BMI) 40.0-44.9, adult ([facility]) 11/17/2022 Encounters Date Type Department Care Team Description 07/11/2024 10:43 AM [facility] - 07/11/2024 11:59 PM [facility] Hospital Encounter [place] [address] Jesse Mead MD Discharge Disposition: Home or Self Care (Routine Discharge) 07/11/2024 Orders Only [place] [address] Jesse Mead MD 07/11/2024 Travel from Last [...] (#1) 2024 05/30/2020, 08/24/2016, 05/10/2013 PHQ-2 (Physician [place]) 08/01/2024 10/04/2022 Hemoglobin A1C 01/09/2025 07/11/2024, 08/31/2018 [...] Comments HEMOGLOBIN, GLYCOSYLATED Routine 07/11/2024 10:53 AM ROBOT OPERATOR Diabetes mellitus ([facility]) TSH W/REFLEX Routine 07/11/2024 10:53 AM ROBOT OPERATOR Nonscarring hair loss MG SCREENING W DUSTIN CHANEL DIGI Routine 03/22/2024 2:02 PM CDT Encounter for screening mammogram for malignant neoplasm of breast from Last 3 Months or Most Recently Relevant to Health Maintenance Results * TSH W/REFLEX (07/11/2024 10:53 AM ROBOT OPERATOR) TSH 0.764 0.358 - 3.74 uIU/ML 07/11/2024 12:11 PM ROBOT OPERATOR [facility] Comment: HIGH DOSES OF BIOTIN MAY INTERFERE WITH THIS TEST RESULT. CORRELATION TO CLINICAL HISTORY AND PRESENTATION RECOMMENDED. FREE T4 NOT INDICATED 07/11/2024 10:5 3 AM ROBOT OPERATOR us Jesse Mead MD LABORATORY Final Result [facility] [address] [place] [address], [place] [phone] * (ABNORMAL) HEMOGLOBIN, GLYCOSYLATED (07/11/2024 10:53 AM ROBOT OPERATOR) HGB A1C 5.9(H) <5.7 % 07/11/2024 12:07 PM ROBOT OPERATOR [facility] Comment: ADA GUIDELINES 2010 5.7 TO 6.4% INCREASED RISK OF DIABETES > OR = 6.5% CONSISTENT WITH DIABETES ESTIMATED AVG GLUCOSE 123 mg/dL 07/11/2024 12:07 PM ROBOT OPERATOR [facility] 07/11/2024 10:5 3 AM ROBOT OPERATOR Jesse Mead MD LABORATORY Final Result [facility] [address] [place] [address], [place] [phone] * MG SCREENING W DUSTIN CHANEL DIGI [...] Most Recently Relevant to Health Maintenance Insurance [employer] Member Subscriber Plan / Payer (Ef fective 2017-Present) Name:Lyudmila Jade Relation to Subscriber:Self Name:Lyudmila Jade Payer ID:[id number] (NAIC) Type:Not on file Address: [place] [phone] MED REPLACE [employer]/[facility] MED COMPLETE Member Subscriber Plan / Payer (Ef fective 2017-Present) Name:Lyudmila Jade Relation to Subscriber:Self Name:Lyudmila Jade Payer ID:[id number] (NAIC) Type:Indemnity Address: [place] [phone] MED REPLACE [employer]/[facility] MED COMPLETE Member Subscriber Plan / Payer (Ef fective 2017-Present) Name:Lyudmila Jade Relation to Subscriber:Self Name:Lyudmila Jade Payer ID:[id number] (NAIC) Type:Indemnity Address: [address] [place] [phone] Advance Directives Documents on File Type Date Recorded Patient Tipple Engineer Expl anation Legal Documents 12/10/2020 10:34 AM RECVD & CMPLTD ATTY REQ. FOR HB BILLS FOR ALYSSA FOR [employer] Care Teams Pension Examiner Relationship Specialty Start Date End Date Jesse Mead MD [address] [phone] PCP - General FAMILY PRACTICE 07/11/24
== END 2024-09-12 14:38 | disposition left against medical advice (07) ==
DX: R10.9 Unspecified abdominal pain (principal)
CPT/HCPCS: 99199